=== PATIENT | female | born 1930 | race Caucasian/White ===

== ENCOUNTER → 2016-06-07 | Outpatient (CLI) | payer OTHER ==
[~2016-06-07] MED LIST: ASPI-435 PO; ATV5 PO; BUPR100T8 PO; CEPH500C PO; CEPH500C2 PO; CIPR-255 PO; LEVO50TA6 PO; LISI-461 PO; MIRT30TA3 PO; TPRSR25 PO
[2016-06-07 11:01] LABS: BASO % 0.6 %; BASO ABS # 0.05 K/uL (0-0.2); COMPLETE YES; EOS % 3.2 %; HEMATOCRIT 38.5 % (37-47); IG% 0.2 %; LYMPH % 20.3 %; LYMPH ABS # 1.66 K/uL (1.2-3.4); MEAN CELL VOLUME 88.1 fL (80-100); MEAN CORPUSCULAR HEMOGLOBIN 29.7 pg (25-34); MEAN CORPUSCULAR HGB CONC 33.8 g/dl (32-36); MEAN PLATELET VOLUME 11.6 fL (7.4-10.4); MONO % 12.5 %; NEUT % 63.2 %; PLATELET COUNT 181 K/uL (130-400); RED BLOOD COUNT 4.37 M/uL (4.2-5.4); WHITE BLOOD COUNT 8.19 K/uL (4.8-10.8)
[2016-06-07 11:21] LABS: BLOOD UREA NITROGEN 42 mg/dl (7-18); BUN/CREATININE RATIO 32.3 (10-20); CALCIUM 9.2 mg/dl (8.5-10.1); CARBON DIOXIDE 28 mmol/L (21-32); CHLORIDE 106 mmol/L (98-107); GLUCOSE 108 mg/dl (70-99); POTASSIUM 4.7 mmol/L (3.5-5.1); SODIUM 138 mmol/L (136-145)
[2016-06-07 11:37] LABS: CHOLESTEROL 181 mg/dl (0-200); CHOLESTEROL/HDL RATIO 2.6; HDL CHOLESTEROL 69 mg/dl; LDL CHOLESTEROL CALCULATED 92 mg/dl; TRIGLYCERIDES 100 mg/dl (0-150); VERY LOW DENSITY LIPOPROT CALC 20 mg/dl
[2016-06-07 13:19] LABS: ESTIMATED AVERAGE GLUCOSE 123 mg/dl; HA1C FLAG Normal (Normal)
--- NOTE | 2016-06-11 09:23 | CODING QUERY MEDICAL NECESSITY ---
SUPPORTING DIAGNOSIS NEEDED Dr. Ibarra, A supporting diagnosis is required for the test/procedure performed on this patient in order for us to be reimbursed by the patient's insurance. Please provide a supporting diagnosis for the following test/procedure listed below next to the test name along with your signature. *If there is no additional diagnosis for this patient that would support the following test/procedure please document that below next to the test/procedure. Test(s)/Procedure(s) that require a supporting diagnosis: * 18131 GLYCATED HEMOGLOBIN DIAGNOSIS: DATE OF SERVICE: 06/07/16 Provider Signature: Date: Thank you Carlyle Gao [facility] Information Management Once completed, please kindly fax back to [phone] For questions please call [phone]
== END | disposition home or self-care (01) ==
LOC: C.LABBC 09:32
PROVIDERS: ATTEND Internal Medicine
DX: I10 Essential (primary) hypertension (principal); R73.9 Hyperglycemia, unspecified

== ENCOUNTER 2016-06-17 14:16 | Emergency (ER) | payer OTHER ==
[~2016-06-17] VITALS: Ht 162.6 cm; Wt 46.7 kg
[~2016-06-17 14:16] MED LIST changes: -CEPH500C PO; -CEPH500C2 PO; -CIPR-255 PO
[2016-06-17 14:18] VITALS: TEMP 36.6; Ht 162.6 cm; Wt 46.7 kg
--- NOTE | 2016-06-17 14:37 | EMERGENCY ROOM VISIT NOTE ---
ED Visit Note First contact with patient: 14:28 CHIEF COMPLAINT: Left leg laceration HISTORY OF PRESENT ILLNESS: This 85-year-old female patient presents to the emergency department ambulatory after cutting the left anterior lower extremity when she bumped it on a chair at home. The bleeding has stopped. Denies weakness or numbness of the foot or toes. The patient denies any pain. The patient denies any other injuries. The patient's Tetanus shot is not up to date. REVIEW OF SYSTEMS: A 6 system review of systems was completed with positives and pertinent negatives listed in the HPI. ALLERGIES: Doxycycline, tetracycline MEDICATIONS: See nursing notes PMH: Hypertension, hypothyroidism SOCIAL HISTORY: The patient lives locally. She does not smoke PHYSICAL EXAM: Vital Signs: Reviewed Nurse's notes, vital signs stable. GENERAL : This is an 85-year-old female, in no acute distress, well-developed, well- nourished. SKIN: There is a 7 cm long skin tear on the anterior aspect of the left lower extremity. The edges gape apart with traction. There is no foreign material in the wound and it looks clean. There is no significant bleeding. No deep structures such as tendons, bones, or nerves are seen in the base of the wound. Normal strength and movement of the foot and toes. Capillary refill less than 2 seconds. Normal sensation to light and sharp touch. EMERGENCY DEPARTMENT COURSE: I examined the patient. The wound was cleaned and irrigated with normal saline. The wound edges were approximated using forceps. Dermabond was used to secure the wound edges. There was good approximation. The patient tolerated the procedure well. She will be placed on Keflex for 5 days. She should return to the ER if any worsening symptoms. The patient was given Td immunization. The patient was discharged home in good condition. The patient was also seen and examined by Dr. Choudhury who agrees with the assessment and treatment plan. Problem List Medical Problems: (1) Depression Status: Chronic Current/Historical Medications Scheduled Aspirin (Aspirin 81), 81 MG PO HS Bupropion (Wellbutrin Sr), 200 MG PO QAM Cephalexin Monohydrate (Keflex), 500 MG PO TID Levothyroxine Sodium (Levothyroxine Sodium), 1 TAB PO DAILY Lisinopril (Lisinopril), 10 MG PO QAM Metoprolol Succinate (Metoprolol Succinate ER), 25 MG PO BID Mirtazapine (Remeron), 15 MG PO HS Allergies Coded Allergies: Doxycycline (Unverified Allergy, Unknown, RASH, 06/17/16) Tetracycline (Verified Allergy, Unknown, 12/03/15) Vital Signs Date Time Temp Pulse Resp B/P Pulse Ox O2 Delivery O2 Flow Rate FiO2 06/17/16 15:18 72 18 146/67 99 Room Air 06/17/16 14:18 36.6 64 16 153/72 100 Room Air Medications Administered Medications (Trade) Dose Ordered Sig/Gregorio Route Start Time Stop Time Status Last Admin Dose Admin Diphtheria/ Pertussis/Tetanus Vacc (Adacel Inj) 0.5 ml ONCE ONCE IM. 06/17/16 14:45 06/17/16 14:46 DC 06/17/16 15:18 0.5 ML Departure Information Impression Primary Impression: Skin tear Dispostion Home / Self-Care Condition GOOD Prescriptions Cephalexin Monohydrate (Keflex) 500 Mg Cap 500 MG PO TID for 5 Days, #15 CAP Prov: Priscilla Vincent PA-C 06/17/16 Referrals Howard Ibarra M.D. (PCP) Patient Instructions ED Laceration Ext Skin Glue, My [facility] Additional Instructions Keep the area clean and dry Keflex every 8 hours for 5 days to help prevent infection Follow up with your family doctor for recheck in 5-7 days. You may need to see the wound center if the wound is not healing well. Return with worsening symptoms.
[2016-06-17] MEDS ORDERED: DIPHTHERIA/TETANUS/PERTUSSIS 0.5 ML SYR/VIAL IM. ONE (14:45)
[2016-06-17] MEDS ORDERED: CEPH500C PO (14:55)
[2016-06-17 15:18] VITALS: BP 146/67; PULSE 72; O2SAT 99
--- NOTE | 2016-06-18 19:52 | EMERGENCY ROOM VISIT NOTE ---
ED Visit Note First contact with patient: 14:28 I have personally evaluated and examined this patient. I agree with assessment and plan of Lyndsay Vincent PA-C. Left leg avulsion/laceration already repaired with dermabond. Abx given valve history. Tetanus update. Stable and feeling well.
[2016-10-21] MEDS ORDERED: CEPH500C2 PO (11:27)
[2016-12-15] MEDS ORDERED: CIPR-255 PO (07:39)
== END 2016-06-17 15:28 | disposition home or self-care (01) ==
LOC: C.EDD 14:25
DX: S81.802A Unspecified open wound, left lower leg, initial encounter (principal); Z23 Encounter for immunization; I10 Essential (primary) hypertension; E03.9 Hypothyroidism, unspecified; F32.9 Major depressive disorder, single episode, unspecified; Z79.82 Long term (current) use of aspirin; Z79.899 Other long term (current) drug therapy; W22.03XA Walked into furniture, initial encounter

== ENCOUNTER → 2016-09-01 | Outpatient (CLI) | payer OTHER ==
[~2016-09-01] MED LIST changes: -ATV5 PO; +CEPH500C2 PO
[2016-09-01 16:24] LABS: BASO % 0.5 %; BASO ABS # 0.04 K/uL (0-0.2); COMPLETE YES; HEMATOCRIT 37.6 % (37-47); IG% 0.4 %; LYMPH % 12.7 %; LYMPH ABS # 1.03 K/uL (1.2-3.4); MEAN CELL VOLUME 88.9 fL (80-100); MEAN CORPUSCULAR HEMOGLOBIN 28.6 pg (25-34); MEAN CORPUSCULAR HGB CONC 32.2 g/dl (32-36); MONO % 9.5 %; NEUT % 75.9 %; PLATELET COUNT 191 K/uL (130-400); RED BLOOD COUNT 4.23 M/uL (4.2-5.4); WHITE BLOOD COUNT 8.11 K/uL (4.8-10.8)
[2016-09-01 16:55] LABS: BLOOD UREA NITROGEN 40 mg/dl (7-18); BUN/CREATININE RATIO 26.4 (10-20); CARBON DIOXIDE 28 mmol/L (21-32); CHLORIDE 104 mmol/L (98-107); GLUCOSE 137 mg/dl (70-99); POTASSIUM 5.4 mmol/L (3.5-5.1); SODIUM 136 mmol/L (136-145)
[2016-09-02 06:52] LABS: ESTIMATED AVERAGE GLUCOSE 126 mg/dl; HA1C FLAG Normal (Normal)
== END | disposition home or self-care (01) ==
LOC: C.LAB1850 15:26
PROVIDERS: ATTEND Physician Assistant
DX: E03.9 Hypothyroidism, unspecified (principal); R73.9 Hyperglycemia, unspecified

== ENCOUNTER → 2016-09-17 | Outpatient (CLI) | payer OTHER ==
--- NOTE | 2016-09-17 11:30 | DIAGNOSTIC IMAGING REPORT ---
(RENAL)RETROPERITON COMP CLINICAL HISTORY: 86 years-old Female presenting with ELEVATED SERUM CREATININE. TECHNIQUE: Real-time grayscale and limited color Doppler ultrasound imaging of the kidneys and bladder was performed. COMPARISON: Ultrasound from 2011. FINDINGS: Bladder: No significant bladder wall thickening. No ureteral jets visualized. Right kidney: Slightly echogenic parenchyma in comparison to the adjacent liver as on prior exam. Right kidney measures 7.1 cm. No significant cortical thinning. No hydronephrosis. Left kidney: Mildly nodular contour along the lateral interpolar region likely relates to persistent lobulations. Left kidney measures 7.5 cm. Mild apparent expansion of renal sinus fat could suggest cortical thinning. No hydronephrosis. IMPRESSION: 1. No evidence of obstruction. 2. Suggestion of medical renal disease. The kidneys may also be slightly atrophic given their slightly small size. Electronically signed by: Jake Stallworth M.D. 09/17/2016 11:29 AM Dictated Date/Time: 09/17/2016 11:25 AM
--- NOTE | 2016-09-17 11:59 | DIAGNOSTIC IMAGING REPORT ---
DOPPLER ULTRASOUND OF THE RENAL ARTERIES CLINICAL HISTORY: Elevated serum creatinine. COMPARISON STUDY: Renal ultrasound March 19, 2010. TECHNIQUE: Color and duplex Doppler sonography of the abdominal aorta and both renal arteries was performed. The grayscale renal ultrasound will be reported separately. FINDINGS: The peak systolic velocity within the abdominal aorta is 57 cm/s. Both renal veins are patent. The peak systolic velocity within the right renal artery is 104 cm/s. The peak systolic velocity within the left renal artery is 153 cm/s. The proximal left renal artery was slightly obscured. Waveforms within the segmental vessels of both kidneys were normal. IMPRESSION: No convincing evidence for renal artery stenosis. Proximal left renal artery slightly obscured but no downstream evidence for a stenosis. Electronically signed by: Saul Vasquez M.D. 09/17/2016 11:57 AM Dictated Date/Time: 09/17/2016 11:55 AM
== END | disposition home or self-care (01) ==
LOC: C.ULTR 10:07
PROVIDERS: ATTEND Internal Medicine
DX: R79.89 Other specified abnormal findings of blood chemistry (principal)

== ENCOUNTER → 2016-09-30 | Outpatient (CLI) | payer OTHER ==
[2016-09-30 15:05] LABS: BLOOD UREA NITROGEN 41 mg/dl (7-18); CALCIUM 9.2 mg/dl (8.5-10.1); CARBON DIOXIDE 26 mmol/L (21-32); CHLORIDE 103 mmol/L (98-107); GLUCOSE 109 mg/dl (70-99); POTASSIUM 5.1 mmol/L (3.5-5.1); SODIUM 135 mmol/L (136-145)
== END | disposition home or self-care (01) ==
LOC: C.LAB1850 13:55
PROVIDERS: ATTEND Internal Medicine Cardiovascular Disease
DX: R79.89 Other specified abnormal findings of blood chemistry (principal)

== ENCOUNTER → 2016-10-13 | Outpatient (CLI) | payer OTHER | END | disposition home or self-care (01) | LOC: C.LABSPEC 15:38 | PROVIDERS: ATTEND Physician Assistant | DX: L97.909 Non-pressure chronic ulcer of unspecified part of unspecified lower leg with unspecified severity (principal) ==

== ENCOUNTER → 2016-12-18 | Outpatient (CLI) | payer OTHER ==
[~2016-12-18] MED LIST changes: -CEPH500C2 PO; +CIPR-255 PO
[2016-12-18 15:14] LABS: CREATININE 1.21 mg/dl (0.60-1.20)
== END | disposition home or self-care (01) ==
LOC: C.LAB1850 13:50
PROVIDERS: ATTEND Internal Medicine
DX: R79.89 Other specified abnormal findings of blood chemistry (principal); L97.909 Non-pressure chronic ulcer of unspecified part of unspecified lower leg with unspecified severity

== ENCOUNTER → 2017-01-29 | Outpatient (CLI) | payer OTHER ==
[~2017-01-29] MED LIST changes: -CIPR-255 PO
--- NOTE | 2017-01-29 12:40 | DIAGNOSTIC IMAGING REPORT ---
ULTRASOUND RIGHT LOWER EXTREMITY VENOUS CLINICAL HISTORY: Right leg pain. Nonhealing wound. COMPARISON STUDY: No priors. TECHNIQUE: Real-time, grayscale, and color Doppler sonography of the deep veins of the right lower extremity was performed from the inguinal crease to the calf. Compression and augmentation were utilized. FINDINGS: There is no sonographic evidence of deep venous thrombosis identified in the right lower extremity. The common femoral, superficial femoral, and popliteal veins are patent and normally compressible. The greater saphenous vein and the profunda femoris vein at the junction with the common femoral vein are clear. The visualized calf veins are patent. Soft tissue edema is noted in the calf. IMPRESSION: There is no sonographic evidence of deep venous thrombosis identified in the right lower extremity. Electronically signed by: Gavino Brand M.D. 01/29/2017 12:39 PM Dictated Date/Time: 01/29/2017 12:38 PM
== END | disposition home or self-care (01) ==
LOC: C.ULTRBC 11:55
PROVIDERS: ATTEND Emergency Medicine
DX: S81.801A Unspecified open wound, right lower leg, initial encounter (principal); X58.XXXA Exposure to other specified factors, initial encounter

== ENCOUNTER → 2017-07-13 | Outpatient (CLI) | payer OTHER ==
[2017-07-13 16:45] LABS: BASO % 0.5 %; BASO ABS # 0.04 K/uL (0-0.2); EOS % 1.3 %; EOS ABS # 0.11 K/uL (0-0.5); HEMATOCRIT 36.8 % (37-47); IG# 0.03 K/uL (0.00-0.02); LYMPH % 16.5 %; MEAN CELL VOLUME 90.6 fL (80-100); MEAN CORPUSCULAR HEMOGLOBIN 29.6 pg (25-34); MEAN CORPUSCULAR HGB CONC 32.6 g/dl (32-36); MEAN PLATELET VOLUME 11.4 fL (7.4-10.4); MONO % 10.3 %; MONO ABS # 0.88 K/uL (0.11-0.59); NEUT ABS # 6.05 K/uL (1.4-6.5); PLATELET COUNT 182 K/uL (130-400); RED CELL DISTRIBUTION WIDTH CV 13.5 % (11.5-14.5); RED CELL DISTRIBUTION WIDTH SD 44.3 fL (36.4-46.3); WHITE BLOOD COUNT 8.51 K/uL (4.8-10.8)
[2017-07-13 17:15] LABS: BLOOD UREA NITROGEN 29 mg/dl (7-18); CALCIUM 9.3 mg/dl (8.5-10.1); CARBON DIOXIDE 27 mmol/L (21-32); CREATININE 1.23 mg/dl (0.60-1.20); GLUCOSE 105 mg/dl (70-99); POTASSIUM 5.3 mmol/L (3.5-5.1); SODIUM 136 mmol/L (136-145)
[2017-07-14 06:39] LABS: HEMOGLOBIN A1C 5.8 % (4.5-5.6)
== END | disposition home or self-care (01) ==
LOC: C.LAB1850 15:01
PROVIDERS: ATTEND Internal Medicine
DX: I10 Essential (primary) hypertension (principal)

== ENCOUNTER 2018-03-25 11:26 | Inpatient (IN) ==
[2018-03-25] MEDS ORDERED: ALBUT/IPRATROP 3MG/0.5MG NEB 3 ML VIAL ONE (11:53)
[2018-03-25] MEDS ORDERED: methylPREDNISolone 125 MG/2 ML VIAL ONE (11:54)
[2018-03-25] MEDS ORDERED: ALBUT/IPRATROP 3MG/0.5MG NEB 3 ML VIAL NEB STA (12:02)
--- NOTE | 2018-03-25 12:06 | Emergency Department Note ---
Entered by Navid Aiken acting as a scribe for Jonh Ortiz DO History of Present Illness General Chief complaint: Shortness of Breath/Dyspnea Stated complaint: diff breathing/ [facility] Time Seen by Provider: 03/25/18 11:53 Source: patient and other (nurse) History of Present Illness Onset (ago): hour(s) (trouble breathing this morning) Location: chest (lungs) Pain Consistency: + other (persistent) Quality: + other (shortness of breath) Relieved By: + other (supplemental oxygen, Duoneb) Associated symptoms: + other (nausea); no chest pain and no fever/chills The patient is an 87 year old female who presents to the Emergency Room with complaints of persistent shortness of breath. Nursing staff report that the patient was found to have trouble breathing this morning by a [facility] nurse. She states that the patients oxygen saturation was 67% on room air this morning and has now risen to the high 80s on seven liters of supplemental oxygen. She notes that the patient was given one Duoneb treatment and Solu- Medrol prior to arrival. The patient denies a history of COPD, asthma, or other lung problems. She notes minor nausea as well as chronic intermittent leg swelling. She denies chest pain or fevers. Family reports that she has been at [facility] for a couple of months due to several falls for therapy. He notes that she has recently gained a few pounds. The patient denies recent medication changes and states that she is not on blood thinners. She notes that she follows Dr. Alicia Hogan [facility]. The patient states that she did not sleep well last night. She has not noticed any worsening with lying back but notes that she sleeps with several pillows. Home Medications Home Medications Medication Instructions Recorded Confirmed Type Sugar Free Med Pass 2 dose PO DAILY 03/25/18 History acetaminophen [Tylenol] 650 mg PO Q4 PRN 03/25/18 03/25/18 History aspirin 81 mg PO HS 03/25/18 03/25/18 History bupropion HCl [Wellbutrin SR] 200 mg PO QAM 03/25/18 03/25/18 History carboxymethylcellulose sodium 1 drp OPHTHALMIC (EYE) Q12 PRN 03/25/18 03/25/18 History [Refresh Tears] ciprofloxacin HCl [Cipro] 500 mg PO Q12H 03/25/18 03/25/18 History docusate sodium [Colace] 100 mg PO BID 03/25/18 03/25/18 History levothyroxine 50 mcg PO DAILY 03/25/18 03/25/18 History mirtazapine 15 mg PO HS 03/25/18 03/25/18 History sennosides [senna] 8.6 mg PO DAILY PRN 03/25/18 03/25/18 History sulfamethoxazole-trimethoprim 1 tab PO BID 03/25/18 03/25/18 History [Bactrim DS] vitamins A,C,[id number] 2 tab PO QAM 03/25/18 03/25/18 History [PreserVision AREDS] Allergies Allergy/AdvReac Type Severity Reaction Status Date / Time doxycycline Allergy Unknown RASH Verified 03/25/18 12:17 tetracycline Allergy Unknown Unknown Verified 03/25/18 12:17 Past Med/Surg History Medical History 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 S/p pacemaker placement Unilateral edema of lower extremity Peripheral neuropathy Hypothyroid HTN (hypertension) Depression (Chronic) Ulcer, venous stasis Depression (Chronic) Hyperglycemia (Chronic) Hyponatremia (Chronic) Acute delirium (Resolved) Surgical History Status post total hysterectomy and bilateral salpingo-oophorectomy Status post aortic valve replacement History of permanent cardiac pacemaker placement Heart valve replaced History of appendectomy History of tonsillectomy Heart valve replaced (Chronic) Family History Other Diabetes Hypertension Social History marital status: / Current Living Situation: Alone Other Information That Helps Us Care for You: No Feels Safe at Home: Yes Safety Concerns: Feels Safe At This Time Smoking Status: Never smoker Second Hand Exposure: No Hx Alcohol Use: Yes Alcohol type: wine Alcohol Intake Frequency: holidays/ special occasions only Hx Substance Use: No Beliefs That Will Affect Care: None Communication Ability: Effective Review of Systems See HPI for pertinent positives & negatives. and A total of 10 systems reviewed and were otherwise negative Physical Exam Vital Signs Vital Signs - 24 hr 03/26/18 15:34 03/26/18 19:44 03/26/18 20:26 Temperature 36.8 C 36.8 C Temperature Source Oral Oral Pulse Rate [Apical] Pulse Rate [Right Finger] 63 73 Respiratory Rate 19 23 Respiratory Effort / Characteristics Non-Labored Respiratory Depth Normal Respiratory Pattern Regular Blood Pressure [Left Arm] 153/73 H 125/93 Blood Pressure [Right Arm] Blood Pressure Mean [Left Arm] 99 103 Blood Pressure Mean [Right Arm] Blood Pressure Position [Left Arm] Lying Lying Blood Pressure Position [Right Arm] Pulse Oximetry 93 89 L Oxygen Delivery Method Nasal Cannula Nasal Cannula Nasal Cannula Oxygen Flow Rate 5.0 2.0 2 03/26/18 23:26 03/26/18 23:30 03/27/18 04:03 Temperature 37.0 C 36.9 C Temperature Source Oral Oral Pulse Rate [Apical] 60 81 Pulse Rate [Right Finger] Respiratory Rate 20 19 Respiratory Effort / Characteristics Non-Labored Spontaneous Respiratory Depth Normal Respiratory Pattern Regular Blood Pressure [Left Arm] 156/65 H 150/70 H Blood Pressure [Right Arm] Blood Pressure Mean [Left Arm] 95 96 Blood Pressure Mean [Right Arm] Blood Pressure Position [Left Arm] Lying Lying Blood Pressure Position [Right Arm] Pulse Oximetry 91 95 Oxygen Delivery Method Nasal Cannula Nasal Cannula Oxymask Oxygen Flow Rate 4 4 4 03/27/18 06:20 03/27/18 06:56 03/27/18 08:00 Temperature 36.6 C Temperature Source Oral Pulse Rate [Apical] 66 Pulse Rate [Right Finger] Respiratory Rate 21 Respiratory Effort / Characteristics Non-Labored Spontaneous Respiratory Depth Normal Respiratory Pattern Regular Blood Pressure [Left Arm] 166/66 H Blood Pressure [Right Arm] 163/74 H Blood Pressure Mean [Left Arm] 99 Blood Pressure Mean [Right Arm] 103 Blood Pressure Position [Left Arm] Lying Blood Pressure Position [Right Arm] Lying Pulse Oximetry 93 Oxygen Delivery Method Oxymask Nasal Cannula Oxygen Flow Rate 4 4 03/27/18 11:35 Temperature 36.6 C Temperature Source Oral Pulse Rate [Apical] 63 Pulse Rate [Right Finger] Respiratory Rate 20 Respiratory Effort / Characteristics Respiratory Depth Respiratory Pattern Blood Pressure [Left Arm] 155/70 H Blood Pressure [Right Arm] Blood Pressure Mean [Left Arm] 98 Blood Pressure Mean [Right Arm] Blood Pressure Position [Left Arm] Lying Blood Pressure Position [Right Arm] Pulse Oximetry 96 Oxygen Delivery Method Nasal Cannula Oxygen Flow Rate 3.5 GENERAL: Patient is awake alert. She is somewhat anxious appearing and appears to be having difficulty breathing. EYES: The conjunctivae are clear. The pupils are round and reactive. EARS, NOSE, MOUTH AND THROAT: The nose is without any evidence of any deformity. Mucous membranes are moist tongue is midline NECK: The neck is nontender and supple. RESPIRATORY: Shallow respirations with tachypnea was appreciated. There are diminished breath sounds with rales noted throughout. CARDIOVASCULAR: Regular rate and rhythm was noted to auscultation. There was a loud S2 appreciated. GASTROINTESTINAL: The abdomen is soft. Bowel sounds are present in all quadrants. Abdomen is nontender MUSCULOSKELETAL/EXTREMITIES: There is no evidence of gross deformity full range of motion is noted in the hips and shoulders SKIN: There is no obvious evidence of any rash. Pedal edema was noted bilaterally. NEUROLOGIC: Patient is awake alert and oriented x3. Course 1157: Past medical records reviewed. The patient was evaluated in room C12A, and a complete history and physical examination were performed. 1316: I consulted Dr. Bryan [facility] Hospitalist. She will reevaluate the patient for hospitalization. Consultations Consultation #1: I consulted Dr. Bryan [facility] Hospitalist. She will reevaluate the patient for hospitalization. Time: 13:16 Administered Medications Acetaminophen (Tylenol) 650 mg PO Q4 PRN PRN Reason: Pain Stop: 04/24/18 16:08 Last Admin: 03/27/18 00:13 Dose: 650 mg Aspirin (Ecotrin Ectab) 81 mg PO HS [place] Stop: 04/24/18 20:59 Last Admin: 03/26/18 19:37 Dose: 81 mg Admin: 03/25/18 20:50 Dose: 81 mg Bupropion HCl (Wellbutrin-Sr) 200 mg PO QAM [place] Stop: 04/25/18 08:59 Last Admin: 03/27/18 07:50 Dose: 200 mg Admin: 03/26/18 07:48 Dose: 200 mg Docusate Sodium (Colace) 100 mg PO BID [place] Stop: 04/24/18 20:59 Last Admin: 03/27/18 07:50 Dose: 100 mg Admin: 03/26/18 19:37 Dose: 100 mg Admin: 03/26/18 07:48 Dose: 100 mg Admin: 03/25/18 20:51 Dose: 100 mg Enoxaparin Sodium (Lovenox) 30 mg SQ Q24H [place] Stop: 04/24/18 17:59 Last Admin: 03/26/18 17:54 Dose: 30 mg Admin: 03/25/18 17:46 Dose: 30 mg Furosemide 40 mg/ Syringe 5 mls @ 4 mls/min IV [id number] [place] Stop: 04/24/18 16:59 Last Admin: 03/27/18 09:32 Dose: 4 mls/min Admin: 03/26/18 16:41 Dose: 4 mls/min Admin: 03/26/18 07:48 Dose: 4 mls/min Admin: 03/25/18 17:47 Dose: 4 mls/min Piperacillin Sod/Tazobactam (Sod 3.375 gm/ Dextrose) 115 mls @ 28.75 mls/hr IV Q8H [place]; Protocol Stop: 04/01/18 21:59 Last Infusion: 03/27/18 10:38 Dose: 0 mls/hr Admin: 03/27/18 06:07 Dose: 28.8 mls/hr Infusion: 03/27/18 02:30 Dose: 0 mls/hr Admin: 03/26/18 21:38 Dose: 28.8 mls/hr Infusion: 03/26/18 19:24 Dose: 0 mls/hr Admin: 03/26/18 15:10 Dose: 28.8 mls/hr Infusion: 03/26/18 10:36 Dose: 0 mls/hr Admin: 03/26/18 05:56 Dose: 28.8 mls/hr Infusion: 03/26/18 02:15 Dose: 0 mls/hr Admin: 03/25/18 22:11 Dose: 28.8 mls/hr Levothyroxine Sodium (Synthroid) 50 mcg PO DAILYBB [place] Stop: 04/25/18 06:29 Last Admin: 03/27/18 06:22 Dose: 50 mcg Admin: 03/26/18 06:00 Dose: 50 mcg Mirtazapine (Remeron) 15 mg PO HS [facility] Stop: 04/24/18 20:59 Last Admin: 03/26/18 19:37 Dose: 15 mg Admin: 03/25/18 20:50 Dose: 15 mg Multivitamins/Minerals (Multivitamin W/ Minerals Tab) 2 tab PO QAM [place] Stop: 04/25/18 08:59 Last Admin: 03/27/18 07:50 Dose: 2 tab Admin: 03/26/18 07:48 Dose: 2 tab Nitroglycerin (Nitro-Bid 2%) 0.5 inch EXT Q6 [place] Stop: 04/24/18 17:59 Last Admin: 03/27/18 12:31 Dose: 0.5 inch Admin: 03/27/18 06:22 Dose: 0.5 inch Admin: 03/27/18 00:07 Dose: 0.5 inch Admin: 03/26/18 17:57 Dose: 0.5 inch Admin: 03/26/18 12:00 Dose: 0.5 inch Admin: 03/26/18 05:59 Dose: 0.5 inch Admin: 03/25/18 23:56 Dose: 0.5 inch Admin: 03/25/18 18:31 Dose: 0.5 inch Discontinued Medications Albuterol (Duoneb) Confirm Administered Dose 3 ml .ROUTE .STK-MED ONE Stop: 03/25/18 11:54 Last Admin: 03/25/18 12:21 Dose: 3 ml Albuterol (Duoneb) 3 ml NEB NOW STA Stop: 03/25/18 12:03 Last Admin: 03/25/18 12:21 Dose: Not Given Furosemide (Lasix) 20 mg IV NOW STA Stop: 03/25/18 12:26 Last Admin: 03/25/18 12:43 Dose: 20 mg Piperacillin Sod/Tazobactam (Sod 3.375 gm/ Dextrose) 115 mls @ 230 mls/hr IV NOW ONE; Protocol Stop: 03/25/18 17:29 Last Infusion: 03/25/18 18:32 Dose: 0 mls/hr Admin: 03/25/18 17:46 Dose: 230 mls/hr Vancomycin HCl 1,250 mg/ (Sodium Chloride) 275 mls @ 125 mls/hr IV NOW ONE Stop: 03/25/18 19:11 Last Infusion: 03/25/18 20:48 Dose: 0 mls/hr Admin: 03/25/18 18:25 Dose: 125 mls/hr Vancomycin HCl 750 mg/ Sodium (Chloride) 265 mls @ 125 mls/hr IV NOW STA Stop: 03/26/18 09:08 Last Infusion: 03/26/18 10:36 Dose: 0 mls/hr Admin: 03/26/18 07:42 Dose: 125 mls/hr Methylprednisolone (Solumedrol) Confirm Administered Dose 125 mg .ROUTE .STK- MED ONE Stop: 03/25/18 11:55 Last Admin: 03/25/18 12:41 Dose: Not Given Nitroglycerin (Nitro-Bid 2%) 0.5 inch EXT NOW ONE Stop: 03/25/18 12:26 Last Admin: 03/25/18 12:41 Dose: 0.5 inch Medical Decision Making Differential Diagnosis Differential diagnosis: Etiologies such as infections, reactive airway disease, pneumonia, pneumothorax , COPD, CHF, cardiac ischemia, pulmonary embolism, musculoskeletal, gastrointestinal, as well as others were entertained. Medical Records Attestation: I reviewed the patient's medical records. Home Medications Current Medication List: was personally reviewed by me Laboratory Data Attestation: I reviewed the patient's lab results. Result diagrams: 03/26/18 02:04 03/27/18 06:32 Lab Results 03/25/18 03/25/18 03/25/18 Range/Units 11:40 11:40 11:40 WBC 13.14 H (4.8-10.8) K/uL RBC 4.43 (4.2-5.4) M/uL Hgb 12.4 (12.0-16.0) g/dL Hct 37.2 (37-47) % MCV 84.0 (80-100) fL MCH 28.0 (25-34) pg MCHC 33.3 (32-36) g/dL RDW Std Deviation 41.7 (36.4-46.3) fL RDW Coeff of Kem 13.5 (11.5-14.5) % Plt Count 232 (130-400) K/uL MPV 11.0 H (7.4-10.4) fL Immature Gran % (Auto) 0.4 % Neut % (Auto) 89.8 % Lymph % (Auto) 4.0 % [place] % (Auto) 5.4 % Eos % (Auto) 0.2 % Baso % (Auto) 0.2 % Immature Gran # (Auto) 0.05 H (0.00-0.02) K/uL Neut # (Auto) 11.79 H (1.4-6.5) K/uL Lymph # (Auto) 0.53 L (1.2-3.4) K/uL [place] # (Auto) 0.71 H (0.11-0.59) K/uL Eos # (Auto) 0.03 (0-0.5) K/uL Baso # (Auto) 0.03 (0-0.2) K/uL PT 12.9 H (9.0-12.0) Seconds INR 1.3 H (0.9-1.1) APTT 28.9 (21.0-31.0) Seconds PTT Ratio 1.1 Sodium 127 L (136-145) mmol/L Potassium 4.3 (3.5-5.1) mmol/L Chloride 94 L (98-107) mmol/L Carbon Dioxide 18 L (21-32) mmol/L Anion Gap 14.0 H (3-11) BUN 30 H (7-18) mg/dl Creatinine 1.42 H (0.6-1.2) mg/dl Est Cr Clr Drug Dosing 23.0 ml/min Est GFR ( Amer) 38.1 Est GFR (Non-Af Amer) 32.9 BUN/Creatinine Ratio 21.4 H (10-20) Glucose 158 H (70-99) mg/dl Estimat Average Glucose mg/dl Hemoglobin A1c (4.5-5.6) % Osmolality (280-300) mOsm/kg Uric Acid 4.8 (2.6-7.2) mg/dl Calcium 8.7 (8.5-10.1) mg/dl Magnesium 2.1 (1.8-2.4) mg/dl Total Bilirubin 0.5 (0.2-1) mg/dl AST 20 (15-37) U/L ALT 21 (12-78) U/L Alkaline Phosphatase 129 H (45-117) U/L Troponin I 0.132 H* (0-0.045) ng/ml NT-Pro-B Natriuret Pep 9819 H (0-1800) pg/ml Total Protein 7.0 (6.4-8.2) gm/dl Albumin 3.3 L (3.4-5.0) gm/dl Globulin 3.7 (2.5-4.0) gm/dl Albumin/Globulin Ratio 0.9 (0.9-2) Procalcitonin (0-0.5) ng/ml Urine Color Urine Appearance (Clear) Urine pH (4.5-7.5) Ur Specific [place] (1.000-1.030) Urine Protein (Negative) Urine Glucose (UA) (Negative) Urine Ketones (Negative) Urine Blood (Negative) Urine Nitrite (Negative) Urine Bilirubin (Negative) Urine Urobilinogen (Negative) Ur Leukocyte Esterase (Negative) Urine Osmolality (500-800) mOsm/kg Ur Random Sodium mmol/L Nasal Screen MRSA (PCR) (Negative) Random Vancomycin mcg/ml 03/25/18 03/25/18 03/25/18 Range/Units 15:25 16:16 20:12 WBC (4.8-10.8) K/uL RBC (4.2-5.4) M/uL Hgb (12.0-16.0) g/dL Hct (37-47) % MCV (80-100) fL MCH (25-34) pg MCHC (32-36) g/dL RDW Std Deviation (36.4-46.3) fL RDW Coeff of Kem (11.5-14.5) % Plt Count (130-400) K/uL MPV (7.4-10.4) fL Immature Gran % (Auto) % Neut % (Auto) % Lymph % (Auto) % [place] % (Auto) % Eos % (Auto) % Baso % (Auto) % Immature Gran # (Auto) (0.00-0.02) K/uL Neut # (Auto) (1.4-6.5) K/uL Lymph # (Auto) (1.2-3.4) K/uL [place] # (Auto) (0.11-0.59) K/uL Eos # (Auto) (0-0.5) K/uL Baso # (Auto) (0-0.2) K/uL PT (9.0-12.0) Seconds INR (0.9-1.1) APTT (21.0-31.0) Seconds PTT Ratio Sodium (136-145) mmol/L Potassium (3.5-5.1) mmol/L Chloride (98-107) mmol/L Carbon Dioxide (21-32) mmol/L Anion Gap (3-11) BUN (7-18) mg/dl Creatinine (0.6-1.2) mg/dl Est Cr Clr Drug Dosing ml/min Est GFR ( Amer) Est GFR (Non-Af Amer) BUN/Creatinine Ratio (10-20) Glucose (70-99) mg/dl Estimat Average Glucose mg/dl Hemoglobin A1c (4.5-5.6) % Osmolality 277 L (280-300) mOsm/kg Uric Acid (2.6-7.2) mg/dl Calcium (8.5-10.1) mg/dl Magnesium (1.8-2.4) mg/dl Total Bilirubin (0.2-1) mg/dl AST (15-37) U/L ALT (12-78) U/L Alkaline Phosphatase (45-117) U/L Troponin I 0.131 H* (0-0.045) ng/ml NT-Pro-B Natriuret Pep (0-1800) pg/ml Total Protein (6.4-8.2) gm/dl Albumin (3.4-5.0) gm/dl Globulin (2.5-4.0) gm/dl Albumin/Globulin Ratio (0.9-2) Procalcitonin (0-0.5) ng/ml Urine Color Yellow Urine Appearance Clear (Clear) Urine pH 5.5 (4.5-7.5) Ur Specific [place] 1.012 (1.000-1.030) Urine Protein Negative (Negative) Urine Glucose (UA) Negative (Negative) Urine Ketones Negative (Negative) Urine Blood Negative (Negative) Urine Nitrite Negative (Negative) Urine Bilirubin Negative (Negative) Urine Urobilinogen Negative (Negative) Ur Leukocyte Esterase Negative (Negative) Urine Osmolality (500-800) mOsm/kg Ur Random Sodium mmol/L Nasal Screen MRSA (PCR) (Negative) Random Vancomycin mcg/ml 03/26/18 03/26/18 03/26/18 Range/Units 02:04 02:04 02:04 WBC 10.92 H (4.8-10.8) K/uL RBC 4.22 (4.2-5.4) M/uL Hgb 11.7 L (12.0-16.0) g/dL Hct 34.9 L (37-47) % MCV 82.7 (80-100) fL MCH 27.7 (25-34) pg MCHC 33.5 (32-36) g/dL RDW Std Deviation 40.7 (36.4-46.3) fL RDW Coeff of Kem 13.5 (11.5-14.5) % Plt Count 191 (130-400) K/uL MPV 10.1 (7.4-10.4) fL Immature Gran % (Auto) 0.3 % Neut % (Auto) 76.3 % Lymph % (Auto) 6.8 % [place] % (Auto) 12.8 % Eos % (Auto) 3.6 % Baso % (Auto) 0.2 % Immature Gran # (Auto) 0.03 H (0.00-0.02) K/uL Neut # (Auto) 8.34 H (1.4-6.5) K/uL Lymph # (Auto) 0.74 L (1.2-3.4) K/uL [place] # (Auto) 1.40 H (0.11-0.59) K/uL Eos # (Auto) 0.39 (0-0.5) K/uL Baso # (Auto) 0.02 (0-0.2) K/uL PT (9.0-12.0) Seconds INR (0.9-1.1) APTT (21.0-31.0) Seconds PTT Ratio Sodium 130 L (136-145) mmol/L Potassium 3.5 D (3.5-5.1) mmol/L Chloride 96 L (98-107) mmol/L Carbon Dioxide 29 (21-32) mmol/L Anion Gap 5.0 (3-11) BUN 31 H (7-18) mg/dl Creatinine 1.39 H (0.6-1.2) mg/dl Est Cr Clr Drug Dosing 23.5 ml/min Est GFR ( Amer) 39.1 Est GFR (Non-Af Amer) 33.8 BUN/Creatinine Ratio 22.5 H (10-20) Glucose 105 H (70-99) mg/dl Estimat Average Glucose 117 mg/dl Hemoglobin A1c 5.7 H (4.5-5.6) % Osmolality (280-300) mOsm/kg Uric Acid (2.6-7.2) mg/dl Calcium 8.1 L (8.5-10.1) mg/dl Magnesium 1.8 (1.8-2.4) mg/dl Total Bilirubin (0.2-1) mg/dl AST (15-37) U/L ALT (12-78) U/L Alkaline Phosphatase (45-117) U/L Troponin I 0.136 H* (0-0.045) ng/ml NT-Pro-B Natriuret Pep (0-1800) pg/ml Total Protein (6.4-8.2) gm/dl Albumin (3.4-5.0) gm/dl Globulin (2.5-4.0) gm/dl Albumin/Globulin Ratio (0.9-2) Procalcitonin (0-0.5) ng/ml Urine Color Urine Appearance (Clear) Urine pH (4.5-7.5) Ur Specific [place] (1.000-1.030) Urine Protein (Negative) Urine Glucose (UA) (Negative) Urine Ketones (Negative) Urine Blood (Negative) Urine Nitrite (Negative) Urine Bilirubin (Negative) Urine Urobilinogen (Negative) Ur Leukocyte Esterase (Negative) Urine Osmolality (500-800) mOsm/kg Ur Random Sodium mmol/L Nasal Screen MRSA (PCR) (Negative) Random Vancomycin mcg/ml 03/26/18 03/26/18 03/26/18 Range/Units 02:04 02:04 04:05 WBC (4.8-10.8) K/uL RBC (4.2-5.4) M/uL Hgb (12.0-16.0) g/dL Hct (37-47) % MCV (80-100) fL MCH (25-34) pg MCHC (32-36) g/dL RDW Std Deviation (36.4-46.3) fL RDW Coeff of Kem (11.5-14.5) % Plt Count (130-400) K/uL MPV (7.4-10.4) fL Immature Gran % (Auto) % Neut % (Auto) % Lymph % (Auto) % [place] % (Auto) % Eos % (Auto) % Baso % (Auto) % Immature Gran # (Auto) (0.00-0.02) K/uL Neut # (Auto) (1.4-6.5) K/uL Lymph # (Auto) (1.2-3.4) K/uL [place] # (Auto) (0.11-0.59) K/uL Eos # (Auto) (0-0.5) K/uL Baso # (Auto) (0-0.2) K/uL PT (9.0-12.0) Seconds INR (0.9-1.1) APTT (21.0-31.0) Seconds PTT Ratio Sodium (136-145) mmol/L Potassium (3.5-5.1) mmol/L Chloride (98-107) mmol/L Carbon Dioxide (21-32) mmol/L Anion Gap (3-11) BUN (7-18) mg/dl Creatinine (0.6-1.2) mg/dl Est Cr Clr Drug Dosing ml/min Est GFR ( Amer) Est GFR (Non-Af Amer) BUN/Creatinine Ratio (10-20) Glucose (70-99) mg/dl Estimat Average Glucose mg/dl Hemoglobin A1c (4.5-5.6) % Osmolality (280-300) mOsm/kg Uric Acid (2.6-7.2) mg/dl Calcium (8.5-10.1) mg/dl Magnesium (1.8-2.4) mg/dl Total Bilirubin (0.2-1) mg/dl AST (15-37) U/L ALT (12-78) U/L Alkaline Phosphatase (45-117) U/L Troponin I (0-0.045) ng/ml NT-Pro-B Natriuret Pep (0-1800) pg/ml Total Protein (6.4-8.2) gm/dl Albumin (3.4-5.0) gm/dl Globulin (2.5-4.0) gm/dl Albumin/Globulin Ratio (0.9-2) Procalcitonin 0.42 (0-0.5) ng/ml Urine Color Urine Appearance (Clear) Urine pH (4.5-7.5) Ur Specific [place] (1.000-1.030) Urine Protein (Negative) Urine Glucose (UA) (Negative) Urine Ketones (Negative) Urine Blood (Negative) Urine Nitrite (Negative) Urine Bilirubin (Negative) Urine Urobilinogen (Negative) Ur Leukocyte Esterase (Negative) Urine Osmolality 369 L (500-800) mOsm/kg Ur Random Sodium mmol/L Nasal Screen MRSA (PCR) (Negative) Random Vancomycin 13.5 mcg/ml 03/26/18 03/26/18 03/27/18 Range/Units 04:05 04:15 06:32 WBC (4.8-10.8) K/uL RBC (4.2-5.4) M/uL Hgb (12.0-16.0) g/dL Hct (37-47) % MCV (80-100) fL MCH (25-34) pg MCHC (32-36) g/dL RDW Std Deviation (36.4-46.3) fL RDW Coeff of Kem (11.5-14.5) % Plt Count (130-400) K/uL MPV (7.4-10.4) fL Immature Gran % (Auto) % Neut % (Auto) % Lymph % (Auto) % [place] % (Auto) % Eos % (Auto) % Baso % (Auto) % Immature Gran # (Auto) (0.00-0.02) K/uL Neut # (Auto) (1.4-6.5) K/uL Lymph # (Auto) (1.2-3.4) K/uL [place] # (Auto) (0.11-0.59) K/uL Eos # (Auto) (0-0.5) K/uL Baso # (Auto) (0-0.2) K/uL PT (9.0-12.0) Seconds INR (0.9-1.1) APTT (21.0-31.0) Seconds PTT Ratio Sodium (136-145) mmol/L Potassium (3.5-5.1) mmol/L Chloride (98-107) mmol/L Carbon Dioxide (21-32) mmol/L Anion Gap (3-11) BUN (7-18) mg/dl Creatinine 1.34 H (0.6-1.2) mg/dl Est Cr Clr Drug Dosing 20.5 ml/min Est GFR ( Amer) 40.9 Est GFR (Non-Af Amer) 35.3 BUN/Creatinine Ratio (10-20) Glucose (70-99) mg/dl Estimat Average Glucose mg/dl Hemoglobin A1c (4.5-5.6) % Osmolality (280-300) mOsm/kg Uric Acid (2.6-7.2) mg/dl Calcium (8.5-10.1) mg/dl Magnesium (1.8-2.4) mg/dl Total Bilirubin (0.2-1) mg/dl AST (15-37) U/L ALT (12-78) U/L Alkaline Phosphatase (45-117) U/L Troponin I (0-0.045) ng/ml NT-Pro-B Natriuret Pep (0-1800) pg/ml Total Protein (6.4-8.2) gm/dl Albumin (3.4-5.0) gm/dl Globulin (2.5-4.0) gm/dl Albumin/Globulin Ratio (0.9-2) Procalcitonin (0-0.5) ng/ml Urine Color Urine Appearance (Clear) Urine pH (4.5-7.5) Ur Specific [place] (1.000-1.030) Urine Protein (Negative) Urine Glucose (UA) (Negative) Urine Ketones (Negative) Urine Blood (Negative) Urine Nitrite (Negative) Urine Bilirubin (Negative) Urine Urobilinogen (Negative) Ur Leukocyte Esterase (Negative) Urine Osmolality (500-800) mOsm/kg Ur Random Sodium 96 mmol/L Nasal Screen MRSA (PCR) Negative (Negative) Random Vancomycin mcg/ml Imaging Data Radiologist's Impression: Radiology results as stated below per my review and the radiologist's interpretation: XR chest 1V portable CLINICAL HISTORY: Dyspnea COMPARISON STUDY: 01/26/2018 FINDINGS: The heart appears mildly enlarged. There are postsurgical changes of midline sternotomy and valvular replacement. 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 A lead fracture is again visualized. There is radiographic evidence of congestive failure/fluid overload. There are bilateral pleural effusions with associated by basilar parenchymal opacities compresses atelectatic versus infectious/inflammatory.[ There is a stable chronic right apical opacity. IMPRESSION: 1. Interval development of congestive failure and bilateral pleural effusions 2. Bilateral lower lobe opacities, atelectasis versus pneumonia. 3. Clinical and radiographic follow-up is recommended. Electronically signed by: Hussein Torres M.D. 03/25/2018 12:19 PM ECG Data Attestation: I personally reviewed and interpreted this ECG as follows: Indication: SOB/dyspnea Rate (beats per minute): 75 Rhythm: other (ventricular paced rhythm) Findings: + other ([place] beat noted) Comparison ECG Date: from (01/28/18) Change: no significant change Blood Pressure Blood Pressure Findings: Elevated blood pressure Blood Pressure Disposition: further management by hospitalist MDM Narrative The patient is an 87-year-old female who presented to the emergency department for an evaluation of difficulty breathing. The patient lives in a senior care at this time. She is status post valve replacement. She had a history and physical exam which appear to be consistent with pulmonary edema. She was treated with nitrates as well as IV Lasix in the emergency department. I discussed the patient's laboratory and radiographic studies with her and her family member. I also discussed her case with the on-call [facility] hospitalist. The patient did have very significant hypoxia on arrival but this seems to have improved at this time. The patient was reevaluated multiple times. Impression & Plan Pulmonary edema, Hypoxia, Hyponatremia Discharge Plan Visit Data *Final* Discharge Date/Time: 03/25/18 15:09 Chief Complaint: Shortness of Breath/Dyspnea Stated Complaint: diff breathing/ juniper ED Provider: Jonh Ortiz Discharge Problem: Pulmonary edema, Hypoxia, Hyponatremia Patient Disposition: Admitted As Inpatient Discharge Instructions Interventions: ED Discharge Assessment Last Done: 03/25/18 15:09 The scribe's documentation has been prepared under my direction and personally reviewed by me in its entirety. I confirm that the note above accurately reflects all work, treatment, procedures, and medical decision making performed by me.
--- NOTE | 2018-03-25 12:20 | XRay Report ---
XR chest 1V portable CLINICAL HISTORY: Dyspnea COMPARISON STUDY: 01/26/2018 FINDINGS: The heart appears mildly enlarged. There are postsurgical changes of midline sternotomy and valvular replacement. There is a left subclavian dual-chamber central venous pacemaker. A lead fract ure is again visualized. There is radiographic evidence of congestive failure/fluid overload. There a re bilateral pleural effusions with associated by basilar parenchymal opacities compresses atelectati c versus infectious/inflammatory.[ There is a stable chronic right apical opacity. IMPRESSION: 1. Interval development of congestive failure and bilateral pleural effusions 2. Bilateral lower lobe opacities, atelectasis versus pneumonia. 3. Clinical and radiographic follow-up is recommended. Electronically signed by: Hussein Torres M.D. 03/25/2018 12:19 PM
[2018-03-25] MEDS ORDERED: NITROGLYCERIN 2% OINTMENT 30GM TUBE EXT ONE (12:25)
[2018-03-25] MEDS ORDERED: FUROSEMIDE 40 MG/4 ML VIAL IV STA (12:25)
[2018-03-25 12:44] LABS: Basophils # (auto) 0.03 K/uL (0-0.2); Basophils % (auto) 0.2 %; Eosinophils # (auto) 0.03 K/uL (0-0.5); Eosinophils % (auto) 0.2 %; Hematocrit (blood only) 37.2 % (37-47); Hemoglobin 12.4 g/dL (12.0-16.0); Immature Granulocytes # (auto) 0.05 K/uL (0.00-0.02); Immature Granulocytes % (auto) 0.4 %; Lymphocytes # (auto) 0.53 K/uL (1.2-3.4); Mean Corpuscular Hgb Conc 33.3 g/dL (32-36); Monocytes # (auto) 0.71 K/uL (0.11-0.59); Monocytes % (auto) 5.4 %; Neutrophils # (auto) 11.79 K/uL (1.4-6.5); Neutrophils % (auto) 89.8 %; Platelet Count 232 K/uL (130-400); RDW Coefficient of Variation 13.5 % (11.5-14.5); RDW Standard Deviation 41.7 fL (36.4-46.3); Red Blood Count 4.43 M/uL (4.2-5.4); White Blood Count 13.14 K/uL (4.8-10.8)
[2018-03-25 12:54] LABS: Albumin Level 3.3 gm/dl (3.4-5.0); BUN Creatinine Ratio 21.4 (10-20); Calcium 8.7 mg/dl (8.5-10.1); Est GFR (African American) 38.1; Est GFR (Non-African American) 32.9; INR 1.3 (0.9-1.1); Magnesium 2.1 mg/dl (1.8-2.4); Partial Thromboplastin Ratio 1.1; Partial Thromboplastin Time 28.9 Seconds (21.0-31.0); Potassium 4.3 mmol/L (3.5-5.1); Prothrombin Time 12.9 Seconds (9.0-12.0); Uric Acid 4.8 mg/dl (2.6-7.2)
[2018-03-25 13:23] LABS: Albumin Globulin Ratio 0.9 (0.9-2); Bilirubin,Total 0.5 mg/dl (0.2-1); Globulin 3.7 gm/dl (2.5-4.0); Troponin I 0.132 ng/ml (0-0.045)
--- NOTE | 2018-03-25 14:18 | History & Physical Report ---
Date of Service March 25, 2018 Assessment & Plan (1) Acute on chronic diastolic (congestive) heart failure: This patient is an 87-year-old female with a history of complete heart block status post pacemaker, AVR, syncope, hypothyroidism, chronic right leg ulcer currently infected and on antibiotics, HTN, chronic diastolic CHF, who presents from the assisted living portion of [facility] with worsening shortness of breath, cough, and profound hypoxia. The patient reports she started coughing about a week ago and was nonproductive. She does think she had a fever last night although does not know the temperature. Today, her son noted that the visiting nurse noted cyanosis of the lips and her pulse ox was in the 60s. EMS was called and she was given Solu-Medrol and DuoNeb's on the way to the ER. In the ER, she was hypoxic and placed on oxygen supplemental via facemask, her chest x-ray showed pulmonary edema and bilateral effusions with possible atelectasis versus pneumonia at the bases. She had an elevated white blood cell count of 13. Her proBNP was elevated at 9819, and her troponin was elevated at 0.132. The patient denies chest pain and her ECG showed an AV paced rhythm with aberrancy. In the ER, she was given Lasix 20 mg IV x1 and Nitropaste. She had not urinated yet by the time I saw her. Notably, her weight is positive about 5 kg from when she was here in December, however her son notes that she has been eating much better since moving to the [facility] living facility. She will be admitted for acute on chronic diastolic CHF and possible bilateral pneumonia/HCAP. -Admit to telemetry -Continue Lasix 40 mg IV twice daily -Daily weights, strict I's and O's, low-sodium diet, and fluid restrict to 1800 mL's per day -Cardiology consultation-further recommendations appreciated -No need for echocardiogram as she just had 2 in the last 6 months-her valve is functioning well and she has known grade 2 diastolic dysfunction with mild MR -Follow BMP and replace electrolytes as needed, watch creatinine -Continue supplemental O2 as below -Continue Nitropaste 0.5 inches transdermal every 6 hours for now (2) Acute respiratory failure with hypoxia: Secondary to acute CHF, possible pneumonia as well? -Continue supplemental O2 -Diuresis as above -Treat with antibiotics for pneumonia -Follow pulse ox (3) Elevated troponin: Troponin elevated at 0.132 on admission, patient is chest pain-free no ischemic changes on ECG -Likely myocardial demand ischemia in the setting of CHF -Trend serial troponin -Follow on telemetry -Cardio consultation place as above -Follow ECG in the morning (4) Hyponatremia: Baseline sodium around 130, slightly lower today 127. Likely secondary to volume overload -Check urine osmolality, urine sodium, and serum osmolality -Follow BMP daily (5) Hyperglycemia: Blood sugar 158 on arrival in the ER, last hemoglobin A1c was 06/2017 was 5.7% Of note, she did get 1 dose of IV Solu-Medrol in route to the hospital -Check hemoglobin A1c in the morning (6) Depression: Stable -Continue bupropion (7) Status post aortic valve replacement: Valve was functioning well and the last echo in 12/2017 It is bioprosthetic (8) History of permanent cardiac pacemaker placement: Placed for complete heart block -Was interrogated and adjusted when she was here for syncope in 12/2017 (9) Hypothyroid: Continue levothyroxine (10) HTN (hypertension): Blood pressures elevated here likely secondary to volume overload -IV Lasix, Nitropaste as above -She was taken off of her spironolactone and lisinopril during the last admission 2 months ago -May need to go back on an antihypertensive upon discharge (11) Ulcer, venous stasis: Chronic on the right leg. Recently found to be infected and growing MSSA and Pseudomonas, was on Cipro and Bactrim for the last few days prior to admission. -Hold Cipro and Bactrim while on IV antibiotic for suspected pneumonia as above -Continues on Zosyn and vancomycin which will cover based on sensitivities of her wound culture from above (12) CKD (chronic kidney disease) stage 3, GFR 30-59 ml/min: Currently with a mild renal insufficiency with creatinine 1.42 up from baseline of 1.2 or 1.1, likely secondary to acute CHF -Avoid nephrotoxins -Follow BMP -Renally dose medications (13) Pneumonia: With bilateral basilar opacities with pleural effusions and pulmonary edema on chest x-ray. But patient with cough times 1 week and possible fever the night before admission as per patient report. She does live in assisted living. -We will treat with Zosyn and vancomycin for now -Check pro calcitonin in the morning -Check MRSA swab -Discontinue antibiotics if felt necessary after treatment for CHF if no other signs of pneumonia. (14) DVT prophylaxis: Lovenox SQ Disposition-admit to telemetry, expect at least a 2 midnight stay for treatment of acute CHF and suspected pneumonia History of Present Illness Chief Complaint: Shortness of breath Primary Care Provider: Galdino Ibarra MD This patient is an 87-year-old female with a history of complete heart block status post pacemaker, AVR, syncope, hypothyroidism, chronic right leg ulcer currently infected and on antibiotics, HTN, chronic diastolic CHF, who presents from the [facility] with worsening shortness of breath, cough, and profound hypoxia. The patient reports she started coughing about a week ago and was nonproductive. She does think she had a fever last night although does not know the temperature. Today, her son noted that the visiting nurse noted cyanosis of the lips and her pulse ox was in the 60s. EMS was called and she was given Solu-Medrol and DuoNeb's on the way to the ER. In the ER, she was hypoxic and placed on oxygen supplemental via facemask, her chest x-ray showed pulmonary edema and bilateral effusions with possible atelectasis versus pneumonia at the bases. She had an elevated white blood cell count of 13. Her proBNP was elevated at 9819, and her troponin was elevated at 0.132. The patient denies chest pain and her ECG showed an AV paced rhythm with aberrancy. In the ER, she was given Lasix 20 mg IV x1 and Nitropaste. She had not urinated yet by the time I saw her. Notably, her weight is positive about 5 kg from when she was here in December, however her son notes that she has been eating much better since moving to the [facility] facility. She will be admitted for acute on chronic diastolic CHF and possible bilateral pneumonia/HCAP. Allergies Allergy/AdvReac Type Severity Reaction Status Date / Time doxycycline Allergy Unknown RASH Verified 03/25/18 12:17 tetracycline Allergy Unknown Unknown Verified 03/25/18 12:17 Home Medications Home Medications Medication Instructions Recorded Confirmed Type Sugar Free Med Pass 2 dose PO DAILY 03/25/18 History acetaminophen [Tylenol] 650 mg PO Q4 PRN 03/25/18 03/25/18 History aspirin 81 mg PO HS 03/25/18 03/25/18 History bupropion HCl [Wellbutrin SR] 200 mg PO QAM 03/25/18 03/25/18 History carboxymethylcellulose sodium 1 drp OPHTHALMIC (EYE) Q12 PRN 03/25/18 03/25/18 History [Refresh Tears] ciprofloxacin HCl [Cipro] 500 mg PO Q12H 03/25/18 03/25/18 History docusate sodium [Colace] 100 mg PO BID 03/25/18 03/25/18 History levothyroxine 50 mcg PO DAILY 03/25/18 03/25/18 History mirtazapine 15 mg PO HS 03/25/18 03/25/18 History sennosides [senna] 8.6 mg PO DAILY PRN 03/25/18 03/25/18 History sulfamethoxazole-trimethoprim 1 tab PO BID 03/25/18 03/25/18 History [Bactrim DS] vitamins A,C,Y-ffon-fywywo 2 tab PO QAM 03/25/18 03/25/18 History [PreserVision AREDS] Past Med/Surg History Medical History 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 S/p pacemaker placement Unilateral edema of lower extremity Peripheral neuropathy Hypothyroid HTN (hypertension) Depression (Chronic) Ulcer, venous stasis Depression (Chronic) Hyperglycemia (Chronic) Hyponatremia (Chronic) Acute delirium (Resolved) Surgical History Status post total hysterectomy and bilateral salpingo-oophorectomy Status post aortic valve replacement History of permanent cardiac pacemaker placement Heart valve replaced History of appendectomy History of tonsillectomy Heart valve replaced (Chronic) Family History Other Diabetes Hypertension Social History marital status: / Current Living Situation: Personal Care Facility Feels Safe at Home: Yes Smoking Status: Never smoker Second Hand Exposure: No Hx Alcohol Use: Yes Alcohol type: wine Alcohol Intake Frequency: holidays/ special occasions only Hx Substance Use: No Beliefs That Will Affect Care: None Preferred Language: Japanese Visual Impairment: No Limitations Hearing Ability: Hard of Hearing Review of Systems All systems reviewed & are unremarkable except as noted in HPI & below Patient denies abdominal pain or diarrhea, no constipation. Is having a mild headache since prior to admission. Physical Exam 2 Vital Signs (Past 24 Hours): Last Vital Signs Temp 36.9 C 03/25/18 12:42 Pulse 65 03/25/18 14:00 Resp 33 H 03/25/18 14:00 BP 162/74 H 03/25/18 14:00 Pulse Ox 91 03/25/18 14:00 Constitutional: WD/WN, vitals as above (Appears frail, thin, mild respiratory distress) Eyes: PERRL, conjunctivae normal, anicteric sclerae ENMT: external ear and nose normal, oropharynx normal Neck: trachea midline, no thyromegaly Respiratory: + respiratory distress (Mild, with Oxymask in place) Auscultation: + diminished lung sounds (In the lower lung may[place]) and + crackles (At the bases bilaterally) Cardiovascular: Rate/Rhythm: regular rate and regular rhythm Heart Sounds: + abnormal S2 (Loud S2) and no murmur Vessels: + JVD Extremities: + edema (Trace to 1+ pitting edema right greater than left; venous stasis changes bilaterally) Gastrointestinal (Abdomen): normal bowel sounds, soft, nontender, no hepatosplenomegaly Musculoskeletal: Extremities: no cyanosis and no clubbing Skin: + ulcer (Right lateral leg with 2 x 1 cm ulcer with dressing in place with surrounding erythema, minimal drainage) Neurologic: moves all extremities and awake; no focal motor deficits Psychiatric: A+Ox3, euthymic affect Results & Data Laboratory Results 03/25/18 03/25/18 03/25/18 Range/Units 11:40 11:40 11:40 WBC 13.14 H (4.8-10.8) K/uL RBC 4.43 (4.2-5.4) M/uL Hgb 12.4 (12.0-16.0) g/dL Hct 37.2 (37-47) % MCV 84.0 (80-100) fL MCH 28.0 (25-34) pg MCHC 33.3 (32-36) g/dL RDW Std Deviation 41.7 (36.4-46.3) fL RDW Coeff of Kem 13.5 (11.5-14.5) % Plt Count 232 (130-400) K/uL MPV 11.0 H (7.4-10.4) fL Immature Gran % (Auto) 0.4 % Neut % (Auto) 89.8 % Lymph % (Auto) 4.0 % Placer % (Auto) 5.4 % Eos % (Auto) 0.2 % Baso % (Auto) 0.2 % Immature Gran # (Auto) 0.05 H (0.00-0.02) K/uL Neut # (Auto) 11.79 H (1.4-6.5) K/uL Lymph # (Auto) 0.53 L (1.2-3.4) K/uL Placer # (Auto) 0.71 H (0.11-0.59) K/uL Eos # (Auto) 0.03 (0-0.5) K/uL Baso # (Auto) 0.03 (0-0.2) K/uL PT 12.9 H (9.0-12.0) Seconds INR 1.3 H (0.9-1.1) APTT 28.9 (21.0-31.0) Seconds PTT Ratio 1.1 Sodium 127 L (136-145) mmol/L Potassium 4.3 (3.5-5.1) mmol/L Chloride 94 L (98-107) mmol/L Carbon Dioxide 18 L (21-32) mmol/L Anion Gap 14.0 H (3-11) BUN 30 H (7-18) mg/dl Creatinine 1.42 H (0.6-1.2) mg/dl Est Cr Clr Drug Dosing 23.0 ml/min Est GFR ( Amer) 38.1 Est GFR (Non-Af Amer) 32.9 BUN/Creatinine Ratio 21.4 H (10-20) Glucose 158 H (70-99) mg/dl Uric Acid 4.8 (2.6-7.2) mg/dl Calcium 8.7 (8.5-10.1) mg/dl Magnesium 2.1 (1.8-2.4) mg/dl Total Bilirubin 0.5 (0.2-1) mg/dl AST 20 (15-37) U/L ALT 21 (12-78) U/L Alkaline Phosphatase 129 H (45-117) U/L Troponin I 0.132 H* (0-0.045) ng/ml NT-Pro-B Natriuret Pep 9819 H (0-1800) pg/ml Total Protein 7.0 (6.4-8.2) gm/dl Albumin 3.3 L (3.4-5.0) gm/dl Globulin 3.7 (2.5-4.0) gm/dl Albumin/Globulin Ratio 0.9 (0.9-2) Diagnostic Findings Chest x-ray image personally reviewed by me and agree with the following report: XR chest 1V portable CLINICAL HISTORY: Dyspnea COMPARISON STUDY: 01/26/2018 FINDINGS: The heart appears mildly enlarged. There are postsurgical changes of midline sternotomy and valvular replacement. 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 A lead fracture is again visualized. There is radiographic evidence of congestive failure/fluid overload. There are bilateral pleural effusions with associated by basilar parenchymal opacities compresses atelectatic versus infectious/inflammatory.[ There is a stable chronic right apical opacity. IMPRESSION: 1. Interval development of congestive failure and bilateral pleural effusions 2. Bilateral lower lobe opacities, atelectasis versus pneumonia. 3. Clinical and radiographic follow-up is recommended. ECG Additional Comments: AV paced rhythm, aberrancy, no definite ischemic changes Code Status & VTE Plan Code Status DNR, however would be okay with intubation for respiratory failure alone VTE Prophylaxis Plan VTE Prophylaxis will be ordered: Yes _ (1) Hypothyroid Hypothyroidism type: acquired Qualified Code(s): E03.9 - Hypothyroidism, unspecified
[2018-03-25 15:53] LABS: Appearance Urine Clear (Clear); Bilirubin Urine Negative (Negative); Blood Urine Negative (Negative); Color Urine Yellow; Glucose Urine UA Negative (Negative); Ketones Urine Negative (Negative); Leukocyte Esterase Urine Negative (Negative); Nitrite Urine Negative (Negative); Protein Urine Negative (Negative); Specific Gravity Urine 1.012 (1.000-1.030); Urobilinogen Urine Negative (Negative); pH Urine 5.5 (4.5-7.5)
[2018-03-25] MEDS ORDERED: SENNA 8.6 MG TAB PO PRN (16:09)
[2018-03-25] MEDS ORDERED: ARTIFICIAL TEARS OP PRN (16:09)
[2018-03-25] MEDS ORDERED: ONDANSETRON INJ 2 MG/ML 2 ML VIAL IV PRN (16:09)
[2018-03-25] MEDS ORDERED: VANCOMYCIN CONSULT ACTIVE PRN (16:09)
[2018-03-25] MEDS ORDERED: PIPERACILL/TAZOBAC CONSULT ACTIVE PRN (16:09)
[2018-03-25] MEDS ORDERED: VANCOMYCIN HCL 1,250 MG in SODIUM CHLORIDE 0.9% 250 ML IV ONE (17:00)
[2018-03-25] MEDS ORDERED: PIPERACILLIN/TAZOBACTAM 3.375 GM in DEXTROSE 5% 100 ML IV ONE (17:00)
[2018-03-25] MEDS: ENOXAPARIN INJ 30 MG/0.3 ML SYR SQ SCH (17:46)
[2018-03-25] MEDS: FUROSEMIDE 40 MG in SYRINGE 1 ML IV SCH (17:47)
[2018-03-25] MEDS: NITROGLYCERIN 2% OINTMENT 30GM TUBE EXT SCH ×2 (18:31→23:56)
[2018-03-25] MEDS: ASPIRIN 81 MG ECTAB PO SCH (20:50)
[2018-03-25] MEDS: MIRTAZAPINE TAB 15 MG TAB PO SCH (20:50)
[2018-03-25] MEDS: DOCUSATE SODIUM 100 MG CAP PO SCH (20:51)
[2018-03-25] MEDS ORDERED: VANCOMYCIN HCL 1,000 MG in SODIUM CHLORIDE 0.9% 250 ML IV SCH (22:00)
[2018-03-25] MEDS: PIPERACILLIN/TAZOBACTAM 3.375 GM in DEXTROSE 5% 100 ML IV SCH (22:11)
[2018-03-26 02:14] LABS: Basophils # (auto) 0.02 K/uL (0-0.2); Basophils % (auto) 0.2 %; Eosinophils # (auto) 0.39 K/uL (0-0.5); Eosinophils % (auto) 3.6 %; Hematocrit (blood only) 34.9 % (37-47); Hemoglobin 11.7 g/dL (12.0-16.0); Immature Granulocytes # (auto) 0.03 K/uL (0.00-0.02); Immature Granulocytes % (auto) 0.3 %; Lymphocytes # (auto) 0.74 K/uL (1.2-3.4); Lymphocytes % (auto) 6.8 %; Mean Corpuscular Hgb Conc 33.5 g/dL (32-36); Mean Corpuscular Volume 82.7 fL (80-100); Mean Platelet Volume 10.1 fL (7.4-10.4); Monocytes % (auto) 12.8 %; Neutrophils # (auto) 8.34 K/uL (1.4-6.5); Neutrophils % (auto) 76.3 %; Platelet Count 191 K/uL (130-400); RDW Coefficient of Variation 13.5 % (11.5-14.5); RDW Standard Deviation 40.7 fL (36.4-46.3); Red Blood Count 4.22 M/uL (4.2-5.4); White Blood Count 10.92 K/uL (4.8-10.8)
[2018-03-26 02:50] LABS: BUN Creatinine Ratio 22.5 (10-20); Calcium 8.1 mg/dl (8.5-10.1); Creatinine Clr Calc Pharmacy 23.5 ml/min; Est GFR (African American) 39.1; Est GFR (Non-African American) 33.8; Magnesium 1.8 mg/dl (1.8-2.4); Potassium 3.5 mmol/L (3.5-5.1)
[2018-03-26 02:54] LABS: Troponin I 0.136 ng/ml (0-0.045)
[2018-03-26 05:47] LABS: Estimated Average Glucose 117 mg/dl; Hemoglobin A1C 5.7 % (4.5-5.6)
[2018-03-26] MEDS: PIPERACILLIN/TAZOBACTAM 3.375 GM in DEXTROSE 5% 100 ML IV SCH ×3 (05:56→21:38)
[2018-03-26] MEDS: NITROGLYCERIN 2% OINTMENT 30GM TUBE EXT SCH ×3 (05:59→17:57)
[2018-03-26] MEDS: LEVOTHYROXINE SODIUM 50 MCG TABLET PO SCH (06:00)
[2018-03-26] MEDS ORDERED: VANCOMYCIN HCL 750 MG in SODIUM CHLORIDE 0.9% 250 ML IV STA (07:01)
[2018-03-26] MEDS: CEROVITE ADV FORMULA TAB PO SCH (07:48)
[2018-03-26] MEDS: DOCUSATE SODIUM 100 MG CAP PO SCH ×2 (07:48→19:37)
[2018-03-26] MEDS: FUROSEMIDE 40 MG in SYRINGE 1 ML IV SCH ×2 (07:48→16:41)
[2018-03-26] MEDS: BuPROPion SR 100 MG TABCR PO SCH (07:48)
--- NOTE | 2018-03-26 08:17 | Hospitalist Progress Note ---
Date of Service March 26, 2018 Assessment & Plan (1) Acute on chronic diastolic (congestive) heart failure: This patient is an 87-year-old female with a history of complete heart block status post pacemaker, AVR, syncope, hypothyroidism, chronic right leg ulcer currently infected and on antibiotics, HTN, chronic diastolic CHF, who presents from the assisted living portion of [facility] with worsening shortness of breath, cough, and profound hypoxia. She was hypoxia and ems transported to the hospital, she was given Solu-Medrol and DuoNeb's chest x-ray showed pulmonary edema and bilateral effusions with possible atelectasis versus pneumonia at the bases. She had an elevated white blood cell count of 13. Her proBNP was elevated at 9819, and her troponin was elevated at 0.132 was given Lasix 20 mg IV x1 and Nitropaste. weight is positive about 5 kg from when she was here in December, She will be admitted for acute on chronic diastolic CHF and possible bilateral pneumonia/HCAP. Lasix 40 mg IV twice daily. Cardiology consultation (2) Acute respiratory failure with hypoxia: Secondary to acute CHF, possible pneumonia vancomycin and zosyn (3) Elevated troponin: Troponin elevated at 0.132 on admission, -Likely myocardial demand ischemia in the setting of CHF (4) Hyponatremia: Baseline sodium around 130, slightly lower today 127. Likely secondary to volume overload (5) Hyperglycemia: Blood sugar 158 on arrival in the ER, last hemoglobin A1c was 06/2017 was 5.7% Of note, she did get 1 dose of IV Solu-Medrol in route to the hospital (6) Depression: Stable on bupropion (7) Status post aortic valve replacement: Valve was functioning well and the last echo in 12/2017 It is bioprosthetic (8) History of permanent cardiac pacemaker placement: Placed for complete heart block -Was interrogated and adjusted when she was here for syncope in 12/2017 (9) Hypothyroid: Continue levothyroxine (10) HTN (hypertension): Blood pressures elevated here likely secondary to volume overload -IV Lasix, Nitropaste as above -She was taken off of her spironolactone and lisinopril during the last admission 2 months ago (11) Ulcer, venous stasis: Chronic on the right leg. Recently found to be infected and growing MSSA and Pseudomonas, was on Cipro and Bactrim for the last few days prior to admission. -Hold Cipro and Bactrim while on IV antibiotic for suspected pneumonia as above -Continues on Zosyn and vancomycin which will cover based on sensitivities of her wound culture from above (12) CKD (chronic kidney disease) stage 3, GFR 30-59 ml/min: Currently with a mild renal insufficiency with creatinine 1.42 up from baseline of 1.2 or 1.1, likely secondary to acute CHF (13) Pneumonia: With bilateral basilar opacities with pleural effusions and pulmonary edema on chest x-ray. But patient with cough times 1 week and possible fever the night before admission as per patient report. She does live in assisted living. -We will treat with Zosyn and vancomycin for now -Check pro calcitonin in the morning -Check MRSA swab -Discontinue antibiotics if felt necessary after treatment for CHF if no other signs of pneumonia. (14) DVT prophylaxis: Lovenox SQ Disposition-admit to telemetry, expect at least a 2 midnight stay for treatment of acute CHF and suspected pneumonia Subjective Patient is pleasant mildly confused hard of hearing feels better has less shortness of breath has minor discomfort to her leg where there is wound she is having a nonproductive cough Review of Systems ROS: well nourished well developed. No double vision blurry vision No problems with speech or swallowing No palpitations, chest pain or pressure No baseline shortness of breath No abdominal pain nausea vomiting diarrhea changes in appetite or weight No burning urine urine frequency or changes in color Bilateral lower leg pain with chronic right lower leg nonhealing lesion which was concern for infection on presentation No other unusual bruising or bleeding No focused back pain or numbness or loss of strength No new changes in memory or confusion Physical Exam 2 Vital Signs (Past 24 Hours): Last Vital Signs Temp 36.7 C 03/26/18 06:58 Pulse 69 03/26/18 06:58 Resp 18 03/26/18 06:58 BP 139/76 03/26/18 06:58 Pulse Ox 97 03/26/18 06:58 The patient appeared thin and frail Vital signs as documented. Head exam is unremarkable. normocephalic, atraumatic Neck is with 2-3 cm jugular venous distension, but no thyromegaly, or lymphademopathy Lungs are decreased breath sounds at the bases Cardiac exam reveals Rhythm is regular. Atrial systolic murmur at the right upper sternal border is heard pacemaker site is nontender Abdominal exam reveals normal bowel sounds, no masses, no organomegaly Extremities are mildly edematous and both pedal pulses are present there is a left foam dressing on her right lower extremity the wound is mildly erythematous she is chronic venous stasis changes bilaterally Neurologic exam is A&Ox3, but is forgetful and does not have all her fax in place no focal deficits, strength is equal bilateral globally diminished Psychologically seems neither anxious or depressed Skin is with chronic venous stasis changes to her lower extremities _ (1) Hypothyroid Hypothyroidism type: acquired Qualified Code(s): E03.9 - Hypothyroidism, unspecified
--- NOTE | 2018-03-26 09:17 | Cardiology Consultation ---
Date of Consultation March 26, 2018 Assessment & Plan (1) Acute on chronic diastolic (congestive) heart failure: Her CHF exacerbation was likely due to the fact that her diuretic therapy was discontinued in December, and she has apparently been eating better since moving to [facility]. She continues to appear hypervolemic on examination, and would continue her current IV diuretic therapy. Monitor PRP as well as I's&O 's closely. Low sodium diet, <2,000 mg daily recommended. (2) Elevated troponin: Her troponin has been mildly elevated up to 0.136. She denies angina, and her presentation does not appear consistent with an ACS. The elevated troponin is likely demand ischemia in the setting of acute CHF and pneumonia. No additional intervention recommended in this regard. (3) Status post aortic valve replacement: Her echo in December 2017 demonstrated mildly elevated transvalvular velocity and gradient. No need to repeat an echo at this time. (4) History of permanent cardiac pacemaker placement: Her device was interrogated in December 2017 and was functioning well. This can be followed in the outpatient setting. Patient was discussed with Dr. Wetzel. Will continue to follow the patient during her admission. History of Present Illness Reason for Consultation: Acute CHF, positive troponin Requesting Physician: Dr. Bryan Attending Physician: Dr. Wetzel History of Present Illness Mrs. Pappas is an 87 year old female with a medical history significant for aortic stenosis s/p AVR (bioprosthetic, 2008), diastolic CHF, history of complete heart block s/p dual chamber pacemaker, hypertension, hypothyroidism, and chronic right leg ulcer. She has a history of severe aortic stenosis and underwent aortic valve replacement with 21mm pericardial bovine bioprosthetic valve [place] [address] [facility]. A cardiac cath prior demonstrated normal coronary arteries. Following surgery she developed complete heart block and required implantation of a dual chamber pacemaker which is now in VVI mode due to atrial lead malfunction. Her most recent echo in December 2017 demonstrated small LV size with hyperdynamic function, bioprosthetic aortic valve with mildly elevated transvalvular velocity and gradient, and mild mitral regurgitation. She was admitted to [facility] on 01/13/18 after suffering a possible syncopal episode at home. Her pacemaker was interrogated without evidence of arrhythmia. It was felt her symptoms were likely due to orthostasis and her metoprolol was discontinued. She was then readmitted on 01/26/18 after an additional fall. She was found to have an elevated creatinine felt to be secondary to dehydration. She had no evidence of arrhythmia on telemetry. Her spirolactone and lisinopril were discontinued. She was discharged to [facility] for rehab. She presented to the ED from [facility] yesterday in the setting of worsening shortness of breath, cough, and hypoxia. The patient is a poor historian, but she believes the cough started about 2 weeks ago and was nonproductive. Per records, her son noted cyanosis of her lips yesterday, and her pulse ox was in the 60s. EMS was called and she was given Solu-Medrol and DuoNebs en route to the ED. She was hypoxic in the ED and was placed on supplemental oxygen. Chest x -ray showed evidence of CHF, bilateral pleural effusions, and bilateral lower lobe opacities. Her WBC was elevated at 13. Pro-BNP was 9819. Her troponin has been mildly elevated up to 0.136. She has been treated with IV Lasix with net loss of about 1.3 L and also initiated on IV antibiotic therapy. She is currently being seen in her room in . She denies any shortness of breath currently. She denies chest pain. She denies lightheadedness and has not had a fall or syncopal event since her admission in late December. She reports chronic lower extremity edema. She denies abnormal bleeding such as melena, hematochezia, or hematuria. She denies cerebrovascular symptoms. When comparing her hospital weight today to her weight in the outpatient clinic in January, she is up about 4 lbs. Per records, her son noted yesterday that she has been eating much more since moving to the assisted living facility. Allergies Allergy/AdvReac Type Severity Reaction Status Date / Time doxycycline Allergy Unknown RASH Verified 03/25/18 12:17 tetracycline Allergy Unknown Unknown Verified 03/25/18 12:17 Home Medications Home Medications Medication Instructions Recorded Confirmed Type Sugar Free Med Pass 2 dose PO DAILY 03/25/18 History acetaminophen [Tylenol] 650 mg PO Q4 PRN 03/25/18 03/25/18 History aspirin 81 mg PO HS 03/25/18 03/25/18 History bupropion HCl [Wellbutrin SR] 200 mg PO QAM 03/25/18 03/25/18 History carboxymethylcellulose sodium 1 drp OPHTHALMIC (EYE) Q12 PRN 03/25/18 03/25/18 History [Refresh Tears] ciprofloxacin HCl [Cipro] 500 mg PO Q12H 03/25/18 03/25/18 History docusate sodium [Colace] 100 mg PO BID 03/25/18 03/25/18 History levothyroxine 50 mcg PO DAILY 03/25/18 03/25/18 History mirtazapine 15 mg PO HS 03/25/18 03/25/18 History sennosides [senna] 8.6 mg PO DAILY PRN 03/25/18 03/25/18 History sulfamethoxazole-trimethoprim 1 tab PO BID 03/25/18 03/25/18 History [Bactrim DS] vitamins A,C,G-suzz-atbsiz 2 tab PO QAM 03/25/18 03/25/18 History [PreserVision AREDS] Patient History Medical History 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 S/p pacemaker placement Unilateral edema of lower extremity Peripheral neuropathy Hypothyroid HTN (hypertension) Depression (Chronic) Ulcer, venous stasis Depression (Chronic) Hyperglycemia (Chronic) Hyponatremia (Chronic) Acute delirium (Resolved) Surgical History Status post total hysterectomy and bilateral salpingo-oophorectomy Status post aortic valve replacement History of permanent cardiac pacemaker placement Heart valve replaced History of appendectomy History of tonsillectomy Heart valve replaced (Chronic) Family History Other Diabetes Hypertension Social History marital status: / Current Living Situation: Alone Other Information That Helps Us Care for You: No Feels Safe at Home: Yes Safety Concerns: Feels Safe At This Time Smoking Status: Never smoker Second Hand Exposure: No Hx Alcohol Use: Yes Alcohol type: wine Alcohol Intake Frequency: holidays/ special occasions only Hx Substance Use: No Beliefs That Will Affect Care: None Preferred Language: Slovenian Communication Ability: Effective Physical Security Engineer Required: No Physical Exam 2 Vital Signs (Past 24 Hours): Last Vital Signs Temp 36.7 C 03/26/18 06:58 Pulse 69 03/26/18 06:58 Resp 18 03/26/18 06:58 BP 139/76 03/26/18 06:58 Pulse Ox 97 03/26/18 06:58 Constitutional: Alert, oriented, in no acute distress, oxygen mask in place HEENT: Head is atraumatic and normocephalic. EOMs intact. Sclera anicteric. Face is symmetric. No perioral cyanosis. Mucous membranes moist. Neck: Supple, +JVD Pulmonary: Normal respiratory effort, decreased breath sounds in the bases with crackles Cardiac: Regular rate and rhythm, crisp aortic closure sound, no gallops, no rubs, 2/6 systolic murmur Extremities: Trace lower extremity edema bilaterally. No clubbing or cyanosis. Pulses 2+ and symmetric Abdomen: Normal bowel sounds, soft, non-tender, no abdominal mass palpated Skin: Chronic venous stasis skin changes of lower extremities. No rash. Neurological: Oriented to person, place, and time Results & Data Laboratory Results Laboratory Results WBC 10.92 K/uL (4.8-10.8) H 03/26/18 02:04 RBC 4.22 M/uL (4.2-5.4) 03/26/18 02:04 Hgb 11.7 g/dL (12.0-16.0) L 03/26/18 02:04 Hct 34.9 % (37-47) L 03/26/18 02:04 MCV 82.7 fL (80-100) 03/26/18 02:04 MCH 27.7 pg (25-34) 03/26/18 02:04 MCHC 33.5 g/dL (32-36) 03/26/18 02:04 RDW Std Deviation 40.7 fL (36.4-46.3) 03/26/18 02:04 RDW Coeff of Kem 13.5 % (11.5-14.5) 03/26/18 02:04 Plt Count 191 K/uL (130-400) 03/26/18 02:04 MPV 10.1 fL (7.4-10.4) 03/26/18 02:04 Immature Gran % (Auto) 0.3 % 03/26/18 02:04 Neut % (Auto) 76.3 % 03/26/18 02:04 Lymph % (Auto) 6.8 % 03/26/18 02:04 [place] % (Auto) 12.8 % 03/26/18 02:04 Eos % (Auto) 3.6 % 03/26/18 02:04 Baso % (Auto) 0.2 % 03/26/18 02:04 Immature Gran # (Auto) 0.03 K/uL (0.00-0.02) H 03/26/18 02:04 Neut # (Auto) 8.34 K/uL (1.4-6.5) H 03/26/18 02:04 Lymph # (Auto) 0.74 K/uL (1.2-3.4) L 03/26/18 02:04 [place] # (Auto) 1.40 K/uL (0.11-0.59) H 03/26/18 02:04 Eos # (Auto) 0.39 K/uL (0-0.5) 03/26/18 02:04 Baso # (Auto) 0.02 K/uL (0-0.2) 03/26/18 02:04 PT 12.9 Seconds (9.0-12.0) H 03/25/18 11:40 INR 1.3 (0.9-1.1) H 03/25/18 11:40 APTT 28.9 Seconds (21.0-31.0) 03/25/18 11:40 PTT Ratio 1.1 03/25/18 11:40 Sodium 130 mmol/L (136-145) L 03/26/18 02:04 Potassium 3.5 mmol/L (3.5-5.1) D 03/26/18 02:04 Chloride 96 mmol/L (98-107) L 03/26/18 02:04 Carbon Dioxide 29 mmol/L (21-32) 03/26/18 02:04 Anion Gap 5.0 (3-11) 03/26/18 02:04 BUN 31 mg/dl (7-18) H 03/26/18 02:04 Creatinine 1.39 mg/dl (0.6-1.2) H 03/26/18 02:04 Est Cr Clr Drug Dosing 23.5 ml/min 03/26/18 02:04 Est GFR ( Amer) 39.1 03/26/18 02:04 Est GFR (Non-Af Amer) 33.8 03/26/18 02:04 BUN/Creatinine Ratio 22.5 (10-20) H 03/26/18 02:04 Glucose 105 mg/dl (70-99) H 03/26/18 02:04 Estimat Average Glucose 117 mg/dl 03/26/18 02:04 Hemoglobin A1c 5.7 % (4.5-5.6) H 03/26/18 02:04 Osmolality 277 mOsm/kg (280-300) L 03/25/18 16:16 Uric Acid 4.8 mg/dl (2.6-7.2) 03/25/18 11:40 Calcium 8.1 mg/dl (8.5-10.1) L 03/26/18 02:04 Magnesium 1.8 mg/dl (1.8-2.4) 03/26/18 02:04 Total Bilirubin 0.5 mg/dl (0.2-1) 03/25/18 11:40 AST 20 U/L (15-37) 03/25/18 11:40 ALT 21 U/L (12-78) 03/25/18 11:40 Alkaline Phosphatase 129 U/L (45-117) H 03/25/18 11:40 Troponin I 0.136 ng/ml (0-0.045) H* 03/26/18 02:04 NT-Pro-B Natriuret Pep 9819 pg/ml (0-1800) H 03/25/18 11:40 Total Protein 7.0 gm/dl (6.4-8.2) 03/25/18 11:40 Albumin 3.3 gm/dl (3.4-5.0) L 03/25/18 11:40 Globulin 3.7 gm/dl (2.5-4.0) 03/25/18 11:40 Albumin/Globulin Ratio 0.9 (0.9-2) 03/25/18 11:40 Procalcitonin 0.42 ng/ml (0-0.5) 03/26/18 02:04 Urine Color Yellow 03/25/18 15:25 Urine Appearance Clear (Clear) 03/25/18 15:25 Urine pH 5.5 (4.5-7.5) 03/25/18 15:25 Ur Specific Finley 1.012 (1.000-1.030) 03/25/18 15:25 Urine Protein Negative (Negative) 03/25/18 15:25 Urine Glucose (UA) Negative (Negative) 03/25/18 15:25 Urine Ketones Negative (Negative) 03/25/18 15:25 Urine Blood Negative (Negative) 03/25/18 15:25 Urine Nitrite Negative (Negative) 03/25/18 15:25 Urine Bilirubin Negative (Negative) 03/25/18 15:25 Urine Urobilinogen Negative (Negative) 03/25/18 15:25 Ur Leukocyte Esterase Negative (Negative) 03/25/18 15:25 Urine Osmolality 369 mOsm/kg (500-800) L 03/26/18 04:05 Ur Random Sodium 96 mmol/L 03/26/18 04:05 Nasal Screen MRSA (PCR) Negative (Negative) 03/26/18 04:15 Random Vancomycin 13.5 mcg/ml 03/26/18 02:04 Diagnostic Findings CXR: 1. Interval development of congestive failure and bilateral pleural effusions 2. Bilateral lower lobe opacities, atelectasis versus pneumonia. ECG: Electronic ventricular pacemaker Telemetry: Ventricular paced rhythm
--- NOTE | 2018-03-26 13:18 | Palliative Care Consultation ---
Date of Consultation March 26, 2018 Assessment & Plan (1) Palliative care encounter: -This is an 87-year-old female with a PMH that includes AVR, CHB s/p PM, chronic R leg ulcer, Diastolic CHF, and syncope that lives in the personal care setting at [facility], presented to the ED with increasing SOB, cough and hypoxemia. The patient is being treated for an exacerbation of CHF vs PNA. Patient has been admitted to the hospital twice in the last three months with discharges on both January 15, 2018 and February 09, 2018 for A/C CHF exacerbations. -I visited the patient in Room 211. She was sitting in her bed, awake and stated she 'heard I would be stopping by'. -She expressed that she lives independently at [facility] but does have some help with cleaning, but per pt. she does her own cooking and bathing. -Per our conversation, she said she has utilized home health in the past but is unsure if she 'has them now'. Per CM notes, she currently receives Home Health and lives in personal care. -We talked about her medical diagnosis and wishes, she stated how she knows she needs to 'talk about these things now'. -Per patient she has three adult children, one son who lives locally, a daughter in [place] and another son in [place]...both of which she states are flying to [place] next Thursday, not today. -Based on my assessment of her, she is very able to participate in a GOALS OF CARE discussion, but I would not feel comfortable with her retaining of a plan as there was a component of confusion to details. -She did state over and over that she would like to return home and thinks that 'when its her time, its her time and there is nothing we can do to stop that, no matter where she is'. -She did state that she has been to the rehab wing of [facility] and would be willing to try that again. -I would defer to PT/OT final recommendations, but I would suggest Home Health upon her return either skilled or personal care, with an eventual transition to Hospice, so it may be nice to have an agency that can do both. -A POLST form would be helpful to complete with family; however, no family were present at the time of my visit. No POLST on file from what I could find. -Called sonGavino ([phone]) and it rang and rang. Per nursing and Hospitalist, he was in this morning with the patient. -Patient currently DNR, which she did confirm she would not want a breathing tube in the event of a decline, but would be ok with a BiPap mask. Again, would want to further discuss with pt son. -She did state that she has a POA documented 'somewhere' and says her daughter in [place] is the financial POA but she 'thinks' that Gavino is her medical POA. (2) Acute on chronic diastolic (congestive) heart failure: Managed by Hospitalists Patient with significant AVR, no chest pain this admission but Troponin levels peaked at 0.136. Pt receiving Lasix 40 mg IV BID Daily Wts Decreased Na+ intake and fluid restriction (3) CKD (chronic kidney disease) stage 3, GFR 30-59 ml/min: -Managed by Hospitalists -CRF borderline Stage IV -BUN 31 Creat 1.39 GFR 33 -Avoid nephrotoxic agents -Suspect this is related to CHF (4) Depression: -Patient states she feels content with her life. -She stated "I had it all, really - a good , three kids..." She shrugged her shoulders and said "Not much more I could want, really" -Patient takes Wellbutrin 200 mg po Q AM. No need for titration at this time. -Patient also takes Remeron 15 mg po QHS. Pt states she is sleeping ok at this time. (5) Venous stasis ulcer: -Managed by Hospitalists -MSSA Pseudomonas in R bundy wound r/t venous ulcer -Per patient this gets dressed at [facility] by nursing. -Currently on Zosyn,Vancomycin -Patient does c/o neuropathic pain in her R leg when I touched her leg. She is not on any neuropathic medications, would suggest a trial of Gabapentin for effectiveness. Suggest Gabapentin 100 mg po TID and titrate based on response. History of Present Illness Reason for Consultation: Goals of Care Requesting Physician: Dr. Adkins Attending Physician: Balwinder Adkins MD History of Present Illness -This is an 87-year-old female with a PMH that includes AVR, CHB s/p PM, chronic R leg ulcer, Diastolic CHF, and syncope that lives in the personal care setting at [facility], presented to the ED with increasing SOB, cough and hypoxemia. The patient is being treated for an exacerbation of CHF vs PNA. Patient has been admitted to the hospital twice in the last three months with discharges both on 01/15/18 and 02/09/18. Palliative Care was consulted to start a GOALS OF CARE discussion. Please see A& P for additional details. Thank you for involving us in the care of this pleasant female. We will follow throughout her hospitalization. Allergies Allergy/AdvReac Type Severity Reaction Status Date / Time doxycycline Allergy Unknown RASH Verified 03/25/18 12:17 tetracycline Allergy Unknown Unknown Verified 03/25/18 12:17 Home Medications Home Medications Medication Instructions Recorded Confirmed Type Sugar Free Med Pass 2 dose PO DAILY 03/25/18 History acetaminophen [Tylenol] 650 mg PO Q4 PRN 03/25/18 03/25/18 History aspirin 81 mg PO HS 03/25/18 03/25/18 History bupropion HCl [Wellbutrin SR] 200 mg PO QAM 03/25/18 03/25/18 History carboxymethylcellulose sodium 1 drp OPHTHALMIC (EYE) Q12 PRN 03/25/18 03/25/18 History [Refresh Tears] ciprofloxacin HCl [Cipro] 500 mg PO Q12H 03/25/18 03/25/18 History docusate sodium [Colace] 100 mg PO BID 03/25/18 03/25/18 History levothyroxine 50 mcg PO DAILY 03/25/18 03/25/18 History mirtazapine 15 mg PO HS 03/25/18 03/25/18 History sennosides [senna] 8.6 mg PO DAILY PRN 03/25/18 03/25/18 History sulfamethoxazole-trimethoprim 1 tab PO BID 03/25/18 03/25/18 History [Bactrim DS] vitamins A,C,N-ssfa-tkfqdt 2 tab PO QAM 03/25/18 03/25/18 History [PreserVision AREDS] Patient History Medical History 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 S/p pacemaker placement Unilateral edema of lower extremity Peripheral neuropathy Hypothyroid HTN (hypertension) Depression (Chronic) Ulcer, venous stasis Depression (Chronic) Hyperglycemia (Chronic) Hyponatremia (Chronic) Acute delirium (Resolved) Surgical History Status post total hysterectomy and bilateral salpingo-oophorectomy Status post aortic valve replacement History of permanent cardiac pacemaker placement Heart valve replaced History of appendectomy History of tonsillectomy Heart valve replaced (Chronic) Family History Other Diabetes Hypertension Social History marital status: / Current Living Situation: Alone Other Information That Helps Us Care for You: No Feels Safe at Home: Yes Safety Concerns: Feels Safe At This Time Smoking Status: Never smoker Second Hand Exposure: No Hx Alcohol Use: Yes Alcohol type: wine Alcohol Intake Frequency: holidays/ special occasions only Hx Substance Use: No Beliefs That Will Affect Care: None Communication Ability: Effective Review of Systems General: Patient denies COATS, dizziness visual changes. Pt reports she is [place], but her son just brought her hearing aids CV: Pt denies CP, palpitations, swelling. Pt reports + RLE pain to touch Resp: Pt states her breathing is much improved. Pt denies current SOB at rest GI: Pt states her appetite is decreased. Pt denies abdominal pain, N/V/D : pt denies any urinary changes Skin: Pt denies new rashes. States her ulcers continue to bother her. Psych: Pt states she feels content and overal is happy, just wants to go home Physical Exam 2 Vital Signs (Past 24 Hours): Last Vital Signs Temp 36.9 C 03/26/18 11:03 Pulse 60 03/26/18 11:03 Resp 23 03/26/18 11:03 BP 164/72 H 03/26/18 11:03 Pulse Ox 91 03/26/18 11:03 Physical Exam: Pt sitting upright in her bed when I entered the room in NAD. Constitutional: + ill appearing, + thin, cooperative and comfortable Eyes: PERRL, conjunctivae normal, anicteric sclerae ENMT: external ear and nose normal, oropharynx normal Neck: trachea midline, no thyromegaly Respiratory: normal respiratory effort (at rest) and able to speak in complete sentences Auscultation: + crackles (expiratory) Pt on 5 LNC Cardiovascular: Heart Sounds: normal S1, normal S2 and + murmur (Grade III/ ) Vessels: + JVD Extremities: + calf tenderness (r/t neuropathic tenderness) and + edema (trace LE ) Gastrointestinal (Abdomen): normal bowel sounds, soft, nontender, no hepatosplenomegaly Skin: normal turgor, + ulcer (venous ulcer on RLE proximal bundy covered with Allyvyn), + skin tightening (RLE, peeling skin) and + crusts (RLE) Psychiatric: Orientation: alert and oriented x 3 (mildly confused to details) Eye Contact: good eye contact Insight: good insight Judgement: good judgement Time Spent Midlevel Total time spent 50 minutes with > 50% of that time spent reviewing the chart, assessing the patient, discussing goals of care and symptoms with the patient at the bedside.
[2018-03-26] MEDS: ENOXAPARIN INJ 30 MG/0.3 ML SYR SQ SCH (17:54)
[2018-03-26] MEDS: ASPIRIN 81 MG ECTAB PO SCH (19:37)
[2018-03-26] MEDS: MIRTAZAPINE TAB 15 MG TAB PO SCH (19:37)
[2018-03-27] MEDS: NITROGLYCERIN 2% OINTMENT 30GM TUBE EXT SCH ×5 (00:07→23:12)
[2018-03-27] MEDS: ACETAMINOPHEN 325 MG TAB PO PRN (00:13)
[2018-03-27] MEDS: PIPERACILLIN/TAZOBACTAM 3.375 GM in DEXTROSE 5% 100 ML IV SCH ×3 (06:07→22:55)
[2018-03-27] MEDS: LEVOTHYROXINE SODIUM 50 MCG TABLET PO SCH (06:22)
[2018-03-27 07:32] LABS: Creatinine Clr Calc Pharmacy 20.5 ml/min; Est GFR (African American) 40.9; Est GFR (Non-African American) 35.3
[2018-03-27] MEDS: BuPROPion SR 100 MG TABCR PO SCH (07:50)
[2018-03-27] MEDS: DOCUSATE SODIUM 100 MG CAP PO SCH ×2 (07:50→22:43)
[2018-03-27] MEDS: CEROVITE ADV FORMULA TAB PO SCH (07:50)
[2018-03-27] MEDS: FUROSEMIDE 40 MG in SYRINGE 1 ML IV SCH ×2 (09:32→17:31)
--- NOTE | 2018-03-27 12:28 | Hospitalist Progress Note ---
Date of Service March 27, 2018 Assessment & Plan (1) Acute on chronic diastolic (congestive) heart failure: This patient is an 87-year-old female with a history of complete heart block status post pacemaker, AVR, syncope, hypothyroidism, chronic right leg ulcer currently infected and on antibiotics, HTN, chronic diastolic CHF, who presents from the assisted living portion of [facility] with worsening shortness of breath, cough, and profound hypoxia. She was hypoxic and ems transported to the hospital, she was given Solu-Medrol and DuoNeb's chest x-ray showed pulmonary edema and bilateral effusions with possible atelectasis versus pneumonia at the bases. weight is positive about 5 kg from when she was here in December, acute on chronic diastolic CHF and possible bilateral pneumonia/HCAP. Lasix 40 mg IV twice daily. Cardiology consultation has been following diuresis continues to be good renal function is been stable (2) Acute respiratory failure with hypoxia: Secondary to acute CHF, possible pneumonia swab she will remain on Zosyn Respiratory distress is improved dramatically (3) Elevated troponin: Troponin elevated at 0.132 on admission, -Likely myocardial demand ischemia in the setting of CHF not an end STEMI (4) Hyponatremia: Baseline sodium around 130, continue to follow sodium (5) Hyperglycemia: Blood sugar 158 on arrival in the ER, last hemoglobin A1c was 06/2017 was 5.7% Of note, she did get 1 dose of IV Solu-Medrol in route to the hospital (6) Depression: Remains stable on bupropion (7) Status post aortic valve replacement: Valve was functioning well and the last echo in 12/2017 It is bioprosthetic (8) History of permanent cardiac pacemaker placement: Placed for complete heart block -Was interrogated and adjusted when she was here for syncope in 12/2017 (9) Hypothyroid: Continue levothyroxine (10) HTN (hypertension): Has improved with diuresis, may benefit from chronic higher to hypertensive therapy once her volume status is euvolemic (11) Ulcer, venous stasis: Chronic on the right leg. Recently found to be infected and growing MSSA and Pseudomonas, was on Cipro and Bactrim for the last few days prior to admission. -Hold Cipro and Bactrim while on IV antibiotic for suspected pneumonia as above -Continues on Zosyn (12) CKD (chronic kidney disease) stage 3, GFR 30-59 ml/min: Currently with a mild renal insufficiency with creatinine 1.42 up from baseline of 1.2 or 1.1, likely secondary to acute CHF (13) Pneumonia: With bilateral basilar opacities with pleural effusions and pulmonary edema on chest x-ray. But patient with cough times 1 week and possible fever the night before admission as per patient report. She does live in assisted living. -We will treat with Zosyn and vancomycin for now -Discontinue antibiotics if felt necessary after treatment for CHF if no other signs of pneumonia. (14) DVT prophylaxis: Lovenox SQ Subjective Patient is improved his less shortness of breath or lower extremity wound is less painful Review of Systems ROS: She remains hard of hearing and mildly weakened No double vision blurry vision No problems with speech or swallowing No palpitations, chest pain or pressure No Wheezing or breathing issues No abdominal pain nausea vomiting diarrhea changes in appetite or weight No burning urine urine frequency or changes in color No focal joint pain still has pain on her lower extremities the area of her wound No skin rashes or oral lesions Wound is less erythematous and improving No focused back pain or numbness or loss of strength No changes in memory or confusion Physical Exam 2 Vital Signs (Past 24 Hours): Last Vital Signs Temp 36.6 C 03/27/18 11:35 Pulse 63 03/27/18 11:35 Resp 20 03/27/18 11:35 BP 155/70 H 03/27/18 11:35 Pulse Ox 96 03/27/18 11:35 The patient appeared thin and frail-appearing Vital signs as documented. Head exam is unremarkable. normocephalic, atraumatic Neck is without jugular venous distension, thyromegaly, or lymphademopathy Lungs are clear there is no basilar rales heard Cardiac exam reveals Rhythm is regular. She will systolic murmur is heard Abdominal exam reveals normal bowel sounds, no masses, no organomegaly Extremities are nonedematous and both pedal pulses are present Neurologic exam is A&Ox3, no focal deficits, strength is equal bilateral Psychologically seems neither anxious or depressed Skin her wound in her lower extremity is less erythematous there is little drainage and then general her skin on the lower extremities looks improved with the diuresis reducing her chronic venous stasis changes _ (1) Hypothyroid Hypothyroidism type: acquired Qualified Code(s): E03.9 - Hypothyroidism, unspecified
[2018-03-27] MEDS: ENOXAPARIN INJ 30 MG/0.3 ML SYR SQ SCH (17:31)
--- NOTE | 2018-03-27 17:57 | Cardiology Progress Note ---
Date of Service March 27, 2018 Assessment & Plan (1) Acute on chronic diastolic (congestive) heart failure: She is affecting a good diuresis with some improvement in her symptoms. We will need to monitor her electrolytes and renal function closely. She has an element of hyponatremia already and we may need to reduce her daily diuretic dose if this persists. (2) Elevated troponin: Her troponin has been mildly elevated up to 0.136. She denies angina, and her presentation does not appear consistent with an ACS. The elevated troponin is likely demand ischemia in the setting of acute CHF and pneumonia. No additional intervention recommended in this regard. (3) Status post aortic valve replacement: Her echo in December 2017 demonstrated mildly elevated transvalvular velocity and gradient. No need to repeat an echo at this time. (4) History of permanent cardiac pacemaker placement: Her device was interrogated in December 2017 and was functioning well. This can be followed in the outpatient setting. Patient was discussed with Dr. Wetzel. Will continue to follow the patient during her admission. (5) HTN (hypertension): She continues to have elevated blood pressures. This may compromise her overall cardiac function and exacerbate any diastolic dysfunction. Perhaps institution of amlodipine would affect some improvement. She is currently applying NTG topically. She will need to transition to a more aggressive oral antihypertention regimen. Present on Admission?: Yes Subjective The patient overall seems to be feeling better. She states that her breathing is improved. She has no symptoms at rest but does have an element of dyspnea with activity. No chest pain. Physical Exam 2 Vital Signs (Past 24 Hours): Last Vital Signs Temp 36.8 C 03/27/18 15:05 Pulse 62 03/27/18 15:05 Resp 24 03/27/18 15:05 BP 160/67 H 03/27/18 15:05 Pulse Ox 93 03/27/18 15:05 Physical Exam: She is alert and oriented x3. Mood affect appear normal. She answered all questions appropriately. HEENT: Sclerae are anicteric. Pupils are equal and reactive to light and accommodation. Extraocular movements were intact. Neuro: Cranial nerves intact Neck: Examination of the submandibular region did not reveal any significant lymphadenopathy. Carotids are palpable bilaterally and free of bruits on auscultation. There was no evidence of jugular venous distention. The thyroid was not enlarged. Lungs: Lungs are clear to auscultation bilaterally. There are no rales wheezes or rhonchi. She has normal respiratory effort without use of accessory muscles. There is normal pulmonary excursion. Cardiac: The rhythm was regular. S1 and S2 were normal. There are no murmurs on examination. The PMI was not markedly displaced on palpation. Abdomen: The abdomen was soft and nontender. Extremities: Patient has bilateral radial pulses that are equal in intensity. There is no evidence cyanosis or clubbing. There was no evidence of significant peripheral edema bilaterally. Skin: There are no rashes noted on examination today. Results & Data Laboratory Results Abnormal Lab Results 03/27/18 06:32 Creatinine 1.34 H Est Cr Clr Drug Dosing 20.5 Est GFR ( Amer) 40.9 Est GFR (Non-Af Amer) 35.3 ECG Additional Comments: NSR
[2018-03-27] MEDS: MIRTAZAPINE TAB 15 MG TAB PO SCH (22:44)
[2018-03-27] MEDS: ASPIRIN 81 MG ECTAB PO SCH (22:44)
[2018-03-28] MEDS: LEVOTHYROXINE SODIUM 50 MCG TABLET PO SCH (06:11)
[2018-03-28] MEDS: NITROGLYCERIN 2% OINTMENT 30GM TUBE EXT SCH (06:11)
[2018-03-28] MEDS: PIPERACILLIN/TAZOBACTAM 3.375 GM in DEXTROSE 5% 100 ML IV SCH ×3 (06:11→22:02)
[2018-03-28 06:40] LABS: BUN Creatinine Ratio 22.1 (10-20); Calcium 8.5 mg/dl (8.5-10.1); Creatinine Clr Calc Pharmacy 23.4 ml/min; Est GFR (African American) 46.7; Est GFR (Non-African American) 40.3; Potassium 2.7 mmol/L (3.5-5.1)
[2018-03-28] MEDS ORDERED: POTASSIUM CHLORIDE 10 MEQ / 100ML WTR IV STA (07:24)
[2018-03-28] MEDS: POTASSIUM CHLORIDE / WTR 10 MEQ/100 ML PLCT IV SCH ×3 (07:48→09:45)
[2018-03-28] MEDS: DOCUSATE SODIUM 100 MG CAP PO SCH ×2 (07:49→20:15)
[2018-03-28] MEDS: POTASSIUM CHLORIDE 20 MEQ TABCR PO SCH ×2 (07:49→20:15)
[2018-03-28] MEDS: CEROVITE ADV FORMULA TAB PO SCH (07:49)
[2018-03-28] MEDS: BuPROPion SR 100 MG TABCR PO SCH (07:49)
[2018-03-28] MEDS: FUROSEMIDE 40 MG in SYRINGE 1 ML IV SCH (08:44)
[2018-03-28] MEDS: AMLODIPINE BESYLATE 5 MG TAB PO SCH (09:17)
--- NOTE | 2018-03-28 09:46 | Cardiology Progress Note ---
Date of Service March 28, 2018 Assessment & Plan (1) Acute on chronic diastolic (congestive) heart failure: She is affecting a good diuresis with some improvement in her symptoms. She was hypokalemic today and likely requires a reduction in the intensity of her diuresis. She has been switched to a single daily dose of Lasix. This will likely be adequate and perhaps he can be discharged on a single oral dose of Lasix daily. (2) Elevated troponin: Her troponin has been mildly elevated up to 0.136. She denies angina, and her presentation does not appear consistent with an ACS. The elevated troponin is likely demand ischemia in the setting of acute CHF and pneumonia. No additional intervention recommended in this regard. (3) Status post aortic valve replacement: Her echo in December 2017 demonstrated mildly elevated transvalvular velocity and gradient. No need to repeat an echo at this time. (4) History of permanent cardiac pacemaker placement: She is known to have an atrial lead malfunction. The device has been programmed VVIR. It is unclear if this played any role in her current decompensation. This is been a chronic problem and was not related to any symptoms previously. She has had a discussion regarding an option for lead revision. This conversation can be continued in the outpatient setting. (5) HTN (hypertension): She continues to have elevated blood pressures. She was started on amlodipine today. Subjective This morning patient claims to be feeling well. She denies any significant breathing difficulty. She was helped to the restroom by the nursing staff and she did feel somewhat nauseated and weak. She has not had any chest pain. She has been unaware of any palpitations. Appetite continues to be good. Physical Exam 2 Vital Signs (Past 24 Hours): Last Vital Signs Temp 36.8 C 03/28/18 07:49 Pulse 71 03/28/18 08:00 Resp 16 03/28/18 07:49 BP 170/76 H 03/28/18 07:49 Pulse Ox 93 03/28/18 07:49 Physical Exam: She is alert and oriented x3. Mood affect appear normal. She answered all questions appropriately. HEENT: Sclerae are anicteric. Pupils are equal and reactive to light and accommodation. Extraocular movements were intact. Neuro: Cranial nerves intact Neck: Examination of the submandibular region did not reveal any significant lymphadenopathy. Carotids are palpable bilaterally and free of bruits on auscultation. There was no evidence of jugular venous distention. The thyroid was not enlarged. Lungs: Lungs are clear to auscultation bilaterally. There are no rales wheezes or rhonchi. She has normal respiratory effort without use of accessory muscles. There is normal pulmonary excursion. Cardiac: The rhythm was regular. S1 and S2 were normal. Crescendo systolic. The PMI was not markedly displaced on palpation. Abdomen: The abdomen was soft and nontender. Extremities: Patient has bilateral radial pulses that are equal in intensity. There is no evidence cyanosis or clubbing. There was no evidence of significant peripheral edema bilaterally. Skin: There are no rashes noted on examination today. Results & Data Laboratory Results Abnormal Lab Results 03/28/18 03/28/18 05:24 05:24 Sodium 130 L Potassium 2.7 L Chloride 91 L Carbon Dioxide 31 Anion Gap 8.0 BUN 26 H Creatinine 1.20 Est Cr Clr Drug Dosing 23.4 Est GFR ( Amer) 46.7 Est GFR (Non-Af Amer) 40.3 BUN/Creatinine Ratio 22.1 H Glucose 97 Calcium 8.5 Magnesium 2.0 ECG Additional Comments: Normal sinus rhythm with complete heart block and ventricular pacing (asynchronous)
--- NOTE | 2018-03-28 13:32 | Hospitalist Progress Note ---
Date of Service March 28, 2018 Assessment & Plan (1) Acute on chronic diastolic (congestive) heart failure: This patient is an 87-year-old female with a history of complete heart block status post pacemaker, AVR, syncope, hypothyroidism, chronic right leg ulcer currently infected and on antibiotics, HTN, chronic diastolic CHF, who presents from the assisted living portion [facility] with worsening shortness of breath, cough, and profound hypoxia. acute on chronic diastolic CHF and possible bilateral pneumonia/HCAP. Lasix 40 mg be transition to p.o. twice daily. Cardiology consultation has been following diuresis and recommends amlodipine be increased to 10 for better blood pressure control they are comfortable with transitioning to oral will have physical therapy evaluate for appropriate disposition (2) Acute respiratory failure with hypoxia: Secondary to acute CHF, negative MRSA pneumonia swab she will remain on Zosyn until transitioned to an oral antibiotic or completing a 5-day course which ever comes first Respiratory distress resolved (3) Elevated troponin: Troponin elevated at 0.132 on admission, -Likely myocardial demand ischemia in the setting of CHF not an end STEMI (4) Hyponatremia: Baseline sodium around 130, continue to follow sodium (5) Hyperglycemia: Blood sugar 158 on arrival in the ER, last hemoglobin A1c was 06/2017 was 5.7% Of note, she did get 1 dose of IV Solu-Medrol in route to the hospital (6) Depression: Remains on bupropion (7) Status post aortic valve replacement: Valve was functioning well and the last echo in 12/2017 It is bioprosthetic (8) History of permanent cardiac pacemaker placement: Placed for complete heart block she does have some aberrant conduction this was confirmed by cardiology no adjustments are required -Was interrogated and adjusted when she was here for syncope in 12/2017 (9) Hypothyroid: Continue levothyroxine (10) HTN (hypertension): Has improved with diuresis (11) Ulcer, venous stasis: Chronic on the right leg. Recently found to be infected and growing MSSA and Pseudomonas, was on Cipro and Bactrim for the last few days prior to admission. Her leg actually looks dramatically improved with regard to achieving better volume status -Continuing to hold Cipro and Bactrim while on IV antibiotic for suspected pneumonia as above -Continues on Zosyn depending on the progress of her legs she may not require any antibiotics additionally when she is discharged however given the Pseudomonas was in the culture returning to quinolone may be prudent (12) CKD (chronic kidney disease) stage 3, GFR 30-59 ml/min: Sent diuresis (13) Pneumonia: With bilateral basilar opacities with pleural effusions and pulmonary edema on chest x-ray. But patient with cough times 1 week and possible fever the night before admission as per patient report. She does live in assisted living. -We will treat with Zosyn - (14) DVT prophylaxis: Lovenox SQ Subjective Patient has no complaints now. Her biggest concern is returning home versus going back to [facility]. She has to call her son Gavino. I did make a phone call to Gavino and he and the family are concerned of her mobility and fall risk and do request to be evaluated to return to [facility] Review of Systems ROS: well nourished well developed. She is weak and tired complaining of fatigue No double vision blurry vision No problems with speech or swallowing No palpitations, chest pain or pressure No Wheezing or breathing issues No abdominal pain nausea vomiting diarrhea changes in appetite or weight No burning urine urine frequency or changes in color No focal joint pain or muscle pain No skin rashes or oral lesions No unusual bruising or bleeding No focused back pain or numbness or loss of strength No new changes in memory or confusion Physical Exam 2 Vital Signs (Past 24 Hours): Last Vital Signs Temp 36.8 C 03/28/18 11:25 Pulse 72 03/28/18 11:25 Resp 22 03/28/18 11:25 BP 129/84 03/28/18 11:25 Pulse Ox 95 03/28/18 11:25 The patient appeared thin but no significant distress Vital signs as documented. Head exam is unremarkable. normocephalic, atraumatic Neck is with only 1 cm jugular venous distension, thyromegaly, or lymphademopathy Lungs are clear to auscultation and percussion. Cardiac exam reveals regular rhythm with a systolic murmur she is paced Abdominal exam reveals normal bowel sounds, no masses, no organomegaly Extremities are only with trace edema bilaterally and both pedal pulses are present but weak Neurologic exam is A&Ox3, no focal deficits, strength is diminished bilaterally Psychologically seems neither anxious or depressed Skin is warm Dry without bruises or lesions _ (1) Hypothyroid Hypothyroidism type: acquired Qualified Code(s): E03.9 - Hypothyroidism, unspecified
[2018-03-28] MEDS: ENOXAPARIN INJ 30 MG/0.3 ML SYR SQ SCH (18:22)
[2018-03-28] MEDS: ASPIRIN 81 MG ECTAB PO SCH (20:15)
[2018-03-28] MEDS: MIRTAZAPINE TAB 15 MG TAB PO SCH (20:15)
[2018-03-29] MEDS: LEVOTHYROXINE SODIUM 50 MCG TABLET PO SCH (05:56)
[2018-03-29] MEDS: PIPERACILLIN/TAZOBACTAM 3.375 GM in DEXTROSE 5% 100 ML IV SCH ×3 (05:56→21:42)
[2018-03-29] MEDS: DOCUSATE SODIUM 100 MG CAP PO SCH ×2 (07:52→20:46)
[2018-03-29] MEDS: BuPROPion SR 100 MG TABCR PO SCH (07:53)
[2018-03-29] MEDS: AMLODIPINE BESYLATE 5 MG TAB PO SCH (07:53)
[2018-03-29] MEDS: POTASSIUM CHLORIDE 20 MEQ TABCR PO SCH (07:53)
[2018-03-29] MEDS: FUROSEMIDE 40 MG TAB PO SCH (07:53)
[2018-03-29] MEDS: CEROVITE ADV FORMULA TAB PO SCH (07:53)
[2018-03-29 08:21] LABS: BUN Creatinine Ratio 21.6 (10-20); Calcium 8.5 mg/dl (8.5-10.1); Creatinine Clr Calc Pharmacy 24.2 ml/min; Est GFR (African American) 47.2; Est GFR (Non-African American) 40.7; Potassium 3.6 mmol/L (3.5-5.1)
--- NOTE | 2018-03-29 16:59 | Cardiology Progress Note ---
Date of Service March 29, 2018 Assessment & Plan (1) Acute on chronic diastolic (congestive) heart failure: She has diuresed quite well, she has lost 6-8 kg (depending on which measurement is correct) and feels much better. Her renal function has improved. She is probably going to require very close follow-up to try to maintain an appropriate fluid balance, she will need to be weighed daily and we will try to have her seen in the office on a regular basis in our heart failure clinic. Hopefully we can keep her fluid under better control in this manner. (2) Elevated troponin: Her troponin was slightly elevated in a pattern consistent with demand ischemia, not an acute coronary event. I would not pursue further. (3) Status post aortic valve replacement: Clinically and based on her last echocardiogram for valve is functioning adequately and probably does not explain her presentation. (4) History of permanent cardiac pacemaker placement: Her pacemaker appears to be working well in VVI mode, it is programmed that way due to atrial lead malfunction. This could have something to do with her presentation but it seems it is more likely her volume status not cardiac inefficiency causing it, although lack of atrial kick can contribute it usually does not to this extent. (5) HTN (hypertension): Her blood pressure is better controlled over the last few days, probably adequate at this point. Subjective Events of this hospitalization were reviewed. Today she feels much stronger, she has no cardiovascular complaints today. Physical Exam 2 Vital Signs (Past 24 Hours): Last Vital Signs Temp 36.6 C 03/29/18 15:37 Pulse 64 03/29/18 15:37 Resp 18 03/29/18 15:37 BP 126/55 L 03/29/18 15:37 Pulse Ox 100 03/29/18 15:37 Physical Exam: Constitutional: Alert, cooperative and in no distress. HEENT: Unremarkable Neck: No jugular venous distention, carotid pulses are normal and equal bilaterally without bruits. Pulmonary: Clear to auscultation bilaterally. Cardiac: Regular rhythm with a grade 2/6 crescendo decrescendo murmur at the base, no gallop or rub. Abdomen: Soft, nontender with normal bowel sounds. Extremities: No edema. Distal pulses intact. Neurologic: No focal findings. Gait is steady. Skin: The device site is well-healed without erythema, swelling or tenderness. No rash, ecchymoses or petechiae. Results & Data Diagnostic Findings Telemetry: Ventricular pacing appropriately
[2018-03-29] MEDS: ENOXAPARIN INJ 30 MG/0.3 ML SYR SQ SCH (18:01)
[2018-03-29] MEDS: ASPIRIN 81 MG ECTAB PO SCH (20:46)
[2018-03-29] MEDS: MIRTAZAPINE TAB 15 MG TAB PO SCH (20:46)
--- NOTE | 2018-03-29 21:46 | Hospitalist Progress Note ---
Date of Service March 29, 2018 Assessment & Plan (1) Acute on chronic diastolic (congestive) heart failure: This patient is an 87-year-old female with a history of complete heart block status post pacemaker, AVR, syncope, hypothyroidism, chronic right leg ulcer currently infected and on antibiotics, HTN, chronic diastolic CHF, who presents from the assisted living portion of [facility] with worsening shortness of breath, cough, and profound hypoxia. acute on chronic diastolic CHF and possible bilateral pneumonia/HCAP. Lasix 40 mg be transition to p.o. twice daily. Cardiology consultation has been following diuresis. Amlodipine still at 5mg. Cardio recommended amlodipine be increased to 10 for better blood pressure control they are comfortable with transitioning to oral will have physical therapy evaluate for appropriate disposition. Will monitor her BP over course of next 24 hours. She continues to diurese well but continues to require oxygen. Once patient returns close to her baseline may consider discharge (2) Acute respiratory failure with hypoxia: Secondary to acute CHF, negative MRSA pneumonia swab she will remain on Zosyn until transitioned to an oral antibiotic or completing a 5-day course which ever comes first Respiratory distress resolved (3) Elevated troponin: Troponin elevated at 0.132 on admission, -Likely myocardial demand ischemia in the setting of CHF not an end STEMI (4) Hyponatremia: Baseline sodium around 130, continue to follow sodium (5) Hyperglycemia: Blood sugar 158 on arrival in the ER, last hemoglobin A1c was 06/2017 was 5.7% Of note, she did get 1 dose of IV Solu-Medrol in route to the hospital (6) Depression: Remains on bupropion (7) Status post aortic valve replacement: Valve was functioning well and the last echo in 12/2017 It is bioprosthetic (8) History of permanent cardiac pacemaker placement: Placed for complete heart block she does have some aberrant conduction this was confirmed by cardiology no adjustments are required -Was interrogated and adjusted when she was here for syncope in 12/2017 (9) Hypothyroid: Continue levothyroxine (10) HTN (hypertension): Has improved with diuresis (11) Ulcer, venous stasis: Chronic on the right leg. Recently found to be infected and growing MSSA and Pseudomonas, was on Cipro and Bactrim for the last few days prior to admission. Her leg actually looks dramatically improved with regard to achieving better volume status -Continuing to hold Cipro and Bactrim while on IV antibiotic for suspected pneumonia as above -Continues on Zosyn depending on the progress of her legs she may not require any antibiotics additionally when she is discharged however given the Pseudomonas was in the culture returning to quinolone may be prudent Plan is to complete 5 days of zosyn. Stop date will be 03/30 (12) CKD (chronic kidney disease) stage 3, GFR 30-59 ml/min: Sent diuresis (13) Pneumonia: With bilateral basilar opacities with pleural effusions and pulmonary edema on chest x-ray. But patient with cough times 1 week and possible fever the night before admission as per patient report. She does live in assisted living. -We will treat with Zosyn -Last day will be 03/30 (14) DVT prophylaxis: Lovenox SQ Spent 35 minutes in management. Subjective Patient continues to require oxygen via nasal cannula. Patient states she still somewhat SOB but her symptoms have been improving. Patient denies any fever chils, nausea vomiting. ROS: well nourished well developed. She is weak and tired complaining of fatigue No double vision blurry vision No problems with speech or swallowing No palpitations, chest pain or pressure No Wheezing or breathing issues No abdominal pain nausea vomiting diarrhea changes in appetite or weight No burning urine urine frequency or changes in color No focal joint pain or muscle pain No skin rashes or oral lesions No unusual bruising or bleeding No focused back pain or numbness or loss of strength No new changes in memory or confusion Physical Exam 2 Vital Signs (Past 24 Hours): Last Vital Signs Temp 36.9 C 03/29/18 19:45 Pulse 60 03/29/18 19:45 Resp 20 03/29/18 19:45 BP 136/52 L 03/29/18 19:45 Pulse Ox 97 03/29/18 19:45 Physical Exam: The patient appeared thin but no significant distress Vital signs as documented. Head exam is unremarkable. normocephalic, atraumatic Neck is with only 1 cm jugular venous distension, thyromegaly, or lymphademopathy Lungs are clear to auscultation and percussion. Cardiac exam reveals regular rhythm with a systolic murmur she is paced Abdominal exam reveals normal bowel sounds, no masses, no organomegaly Extremities are only with trace edema bilaterally and both pedal pulses are present but weak Neurologic exam is A&Ox3, no focal deficits, strength is diminished bilaterally Psychologically seems neither anxious or depressed Skin is warm Dry without bruises or lesions _ (1) Hypothyroid Hypothyroidism type: acquired Qualified Code(s): E03.9 - Hypothyroidism, unspecified
[2018-03-30] MEDS: PIPERACILLIN/TAZOBACTAM 3.375 GM in DEXTROSE 5% 100 ML IV SCH ×3 (06:02→21:48)
[2018-03-30] MEDS: LEVOTHYROXINE SODIUM 50 MCG TABLET PO SCH (06:03)
[2018-03-30 06:18] LABS: BUN Creatinine Ratio 22.5 (10-20); Calcium 8.5 mg/dl (8.5-10.1); Creatinine Clr Calc Pharmacy 26.5 ml/min; Est GFR (African American) 52.5; Est GFR (Non-African American) 45.3; Potassium 3.7 mmol/L (3.5-5.1)
[2018-03-30] MEDS: DOCUSATE SODIUM 100 MG CAP PO SCH ×2 (09:33→21:50)
--- NOTE | 2018-03-30 09:35 | Cardiology Progress Note ---
Date of Service March 30, 2018 Assessment & Plan (1) Acute on chronic diastolic (congestive) heart failure: She has diuresed quite well, she has lost as much as 8 kg (depending on which measurement is correct) and feels much better. Her renal function continues to improve. She is probably going to require very close outpatient follow-up to try to maintain an appropriate fluid balance, she will need to be weighed daily and we will try to have her seen in the office on a regular basis in our heart failure clinic. Hopefully we can keep her fluid under better control in this manner. I suspect she can still lose some fluid, it may be worthwhile continue to diuresis until her creatinine increases. (2) Elevated troponin: Her troponin was slightly elevated in a pattern consistent with demand ischemia, not an acute coronary event. I would not pursue further. (3) Status post aortic valve replacement: Clinically and based on her last echocardiogram for valve is functioning adequately and probably does not explain her presentation. (4) History of permanent cardiac pacemaker placement: Her pacemaker appears to be working well in VVI mode, it is programmed that way due to atrial lead malfunction. This could have something to do with her presentation but it seems it is more likely her volume status not cardiac inefficiency causing it, although lack of atrial kick can contribute it usually does not to this extent. (5) HTN (hypertension): Her blood pressure is reasonably well controlled although has increased slightly over the last few days, probably adequate at this point. Subjective She is just going to the bathroom and feels a little shaky, she is also feeling cold. Apparently she has loose bowel movements. She does not have cardiovascular symptoms including chest discomfort or significant shortness of breath. Physical Exam 2 Vital Signs (Past 24 Hours): Last Vital Signs Temp 36.6 C 03/30/18 07:50 Pulse 62 03/30/18 07:50 Resp 20 03/30/18 07:50 BP 150/67 H 03/30/18 07:50 Pulse Ox 96 03/30/18 07:50 Physical Exam: Constitutional: Alert, cooperative and in no distress. Pulmonary: Diffuse crackles on auscultation bilaterally. Cardiac: Regular rhythm with a grade 2/6 crescendo decrescendo murmur at the base, no gallop or rub. Abdomen: Soft, nontender with normal bowel sounds. Extremities: No edema. Skin: No rash, ecchymoses or petechiae. Results & Data Diagnostic Findings Telemetry: Ventricularly paced at a controlled heart rate
[2018-03-30] MEDS: FUROSEMIDE 40 MG TAB PO SCH (09:36)
[2018-03-30] MEDS: AMLODIPINE BESYLATE 5 MG TAB PO SCH (09:36)
[2018-03-30] MEDS: CEROVITE ADV FORMULA TAB PO SCH (09:36)
[2018-03-30] MEDS: BuPROPion SR 100 MG TABCR PO SCH (09:37)
[2018-03-30] MEDS: ENOXAPARIN INJ 30 MG/0.3 ML SYR SQ SCH (17:24)
[2018-03-30] MEDS: MIRTAZAPINE TAB 15 MG TAB PO SCH (21:49)
[2018-03-30] MEDS: ASPIRIN 81 MG ECTAB PO SCH (21:49)
--- NOTE | 2018-03-30 22:22 | Hospitalist Progress Note ---
Date of Service March 30, 2018 Assessment & Plan (1) Acute on chronic diastolic (congestive) heart failure: This patient is an 87-year-old female with a history of complete heart block status post pacemaker, AVR, syncope, hypothyroidism, chronic right leg ulcer currently infected and on antibiotics, HTN, chronic diastolic CHF, who presents from the assisted living portion of [facility] with worsening shortness of breath, cough, and profound hypoxia. acute on chronic diastolic CHF and possible bilateral pneumonia/HCAP. Lasix 40 mg be transition to p.o. twice daily. Cardiology consultation has been following diuresis. Amlodipine still at 5mg. Cardio recommended amlodipine be increased to 10 for better blood pressure control they are comfortable with transitioning to oral will have physical therapy evaluate for appropriate disposition. Will monitor her BP over course of next 24 hours. She continues to diurese well but continues to require oxygen. Today her oxygen reuqirement has gone down from 4 liters to 3 liters nasal cannula on 03/30. Once patient returns close to her baseline may consider discharge. (2) Acute respiratory failure with hypoxia: Secondary to acute CHF, negative MRSA pneumonia swab she will remain on Zosyn until transitioned to an oral antibiotic or completing a 5-day course which ever comes first Respiratory distress resolved (3) Elevated troponin: Troponin elevated at 0.132 on admission, -Likely myocardial demand ischemia in the setting of CHF not an end STEMI (4) Hyponatremia: Baseline sodium around 130, continue to follow sodium (5) Hyperglycemia: Blood sugar 158 on arrival in the ER, last hemoglobin A1c was 06/2017 was 5.7% Of note, she did get 1 dose of IV Solu-Medrol in route to the hospital (6) Depression: Remains on bupropion (7) Status post aortic valve replacement: Valve was functioning well and the last echo in 12/2017 It is bioprosthetic (8) History of permanent cardiac pacemaker placement: Placed for complete heart block she does have some aberrant conduction this was confirmed by cardiology no adjustments are required -Was interrogated and adjusted when she was here for syncope in 12/2017 (9) Hypothyroid: Continue levothyroxine (10) HTN (hypertension): Has improved with diuresis (11) Ulcer, venous stasis: Chronic on the right leg. Recently found to be infected and growing MSSA and Pseudomonas, was on Cipro and Bactrim for the last few days prior to admission. Her leg actually looks dramatically improved with regard to achieving better volume status -Continuing to hold Cipro and Bactrim while on IV antibiotic for suspected pneumonia as above -Continues on Zosyn depending on the progress of her legs she may not require any antibiotics additionally when she is discharged however given the Pseudomonas was in the culture returning to quinolone may be prudent Plan is to complete 5 days of zosyn. Stop date will be 03/30 (12) CKD (chronic kidney disease) stage 3, GFR 30-59 ml/min: Sent diuresis (13) Pneumonia: With bilateral basilar opacities with pleural effusions and pulmonary edema on chest x-ray. But patient with cough times 1 week and possible fever the night before admission as per patient report. She does live in assisted living. -We will treat with Zosyn -Last day will be 03/30. Will discontinue today. (14) DVT prophylaxis: Lovenox SQ Spent 35 minutes in management. Subjective Patient continues to require oxygen via nasal cannula. Patient states she is feeling better and is less SOB. Patient denies any fever chills, nausea vomiting. ROS: well nourished well developed. She is weak and tired complaining of fatigue No double vision blurry vision No problems with speech or swallowing No palpitations, chest pain or pressure No Wheezing or breathing issues No abdominal pain nausea vomiting diarrhea changes in appetite or weight No burning urine urine frequency or changes in color No focal joint pain or muscle pain No skin rashes or oral lesions No unusual bruising or bleeding No focused back pain or numbness or loss of strength No new changes in memory or confusion Physical Exam 2 Vital Signs (Past 24 Hours): Last Vital Signs Temp 36.7 C 03/30/18 19:00 Pulse 60 03/30/18 19:00 Resp 16 03/30/18 19:00 BP 109/63 03/30/18 19:00 Pulse Ox 92 03/30/18 19:00 Physical Exam: The patient appeared thin but no significant distress. Continues to be on nasal cannula Vital signs as documented. Head exam is unremarkable. normocephalic, atraumatic Neck is with only 1 cm jugular venous distension, thyromegaly, or lymphademopathy Lungs are clear to auscultation and percussion. Cardiac exam reveals regular rhythm with a systolic murmur she is paced Abdominal exam reveals normal bowel sounds, no masses, no organomegaly Extremities are only with trace edema bilaterally and both pedal pulses are present but weak Neurologic exam is A&Ox3, no focal deficits, strength is diminished bilaterally Psychologically seems neither anxious or depressed Skin is warm Dry without bruises or lesions, mild pedal edema _ (1) Hypothyroid Hypothyroidism type: acquired Qualified Code(s): E03.9 - Hypothyroidism, unspecified
[2018-03-31] MEDS: PIPERACILLIN/TAZOBACTAM 3.375 GM in DEXTROSE 5% 100 ML IV SCH (05:26)
[2018-03-31] MEDS: LEVOTHYROXINE SODIUM 50 MCG TABLET PO SCH (05:26)
[2018-03-31 07:41] LABS: BUN Creatinine Ratio 22.8 (10-20); Calcium 8.6 mg/dl (8.5-10.1); Creatinine Clr Calc Pharmacy 26.8 ml/min; Est GFR (African American) 53.7; Est GFR (Non-African American) 46.3; Potassium 3.5 mmol/L (3.5-5.1)
[2018-03-31] MEDS: DOCUSATE SODIUM 100 MG CAP PO SCH ×3 (08:09→21:38)
[2018-03-31] MEDS: CEROVITE ADV FORMULA TAB PO SCH (08:10)
[2018-03-31] MEDS: AMLODIPINE BESYLATE 5 MG TAB PO SCH (08:11)
[2018-03-31] MEDS: BuPROPion SR 100 MG TABCR PO SCH (08:11)
[2018-03-31] MEDS: FUROSEMIDE 40 MG TAB PO SCH (08:45)
[2018-03-31] MEDS: ACETAMINOPHEN 325 MG TAB PO PRN (10:11)
--- NOTE | 2018-03-31 10:14 | Cardiology Progress Note ---
Date of Service March 31, 2018 Assessment & Plan (1) Acute on chronic diastolic (congestive) heart failure: She has diuresed quite well I believe, her weights are somewhat up and down but she has lost as much as 8 kg (depending on which measurement is correct ) and feels much better. Her renal function continues to improve. She is probably going to require very close outpatient follow-up to try to maintain an appropriate fluid balance, she will need to be weighed daily and we will try to have her seen in the office on a regular basis in our heart failure clinic. Hopefully we can keep her fluid under better control in this manner. I suspect she can still lose some fluid, it may be worthwhile continue to diuresis until her creatinine increases. (2) Elevated troponin: Her troponin was slightly elevated in a pattern consistent with demand ischemia, not an acute coronary event. I would not pursue further. (3) Status post aortic valve replacement: Clinically and based on her last echocardiogram for valve is functioning adequately and probably does not explain her presentation. (4) History of permanent cardiac pacemaker placement: Her pacemaker appears to be working well in VVI mode, it is programmed that way due to atrial lead malfunction. This could have something to do with her presentation but it seems it is more likely her volume status not cardiac inefficiency causing it, although lack of atrial kick can contribute it usually does not to this extent. (5) HTN (hypertension): Her blood pressure is reasonably well controlled for the most part although has increased slightly over the last few days, probably adequate at this point. Subjective Today she seems to feel better, she looks quite good and is sitting at her bedside without oxygen, having just come from the bathroom. She has no specific cardiovascular complaints. Physical Exam 2 Vital Signs (Past 24 Hours): Last Vital Signs Temp 36.7 C 03/31/18 07:49 Pulse 60 03/31/18 08:00 Resp 18 03/31/18 07:49 BP 164/70 H 03/31/18 07:49 Pulse Ox 91 03/31/18 07:49 Physical Exam: Constitutional: Alert, cooperative and in no distress. Pulmonary: Diffuse crackles on auscultation bilaterally. Cardiac: Regular rhythm with a grade 2/6 crescendo decrescendo murmur at the base, no gallop or rub. Abdomen: Soft, nontender with normal bowel sounds. Extremities: No edema. Skin: No rash, ecchymoses or petechiae.
[2018-03-31] MEDS: ENOXAPARIN INJ 30 MG/0.3 ML SYR SQ SCH (18:37)
[2018-03-31] MEDS: MIRTAZAPINE TAB 15 MG TAB PO SCH (20:06)
[2018-03-31] MEDS: ASPIRIN 81 MG ECTAB PO SCH (20:06)
[2018-04-01] MEDS: LEVOTHYROXINE SODIUM 50 MCG TABLET PO SCH (06:10)
[2018-04-01 07:42] LABS: Creatinine Clr Calc Pharmacy 30.2 ml/min; Est GFR (African American) 66.2; Est GFR (Non-African American) 57.1
[2018-04-01] MEDS: DOCUSATE SODIUM 100 MG CAP PO SCH ×2 (08:00→20:46)
[2018-04-01] MEDS: CEROVITE ADV FORMULA TAB PO SCH (08:01)
[2018-04-01] MEDS: BuPROPion SR 100 MG TABCR PO SCH (08:01)
[2018-04-01] MEDS: FUROSEMIDE 40 MG TAB PO SCH (08:01)
[2018-04-01] MEDS: AMLODIPINE BESYLATE 5 MG TAB PO SCH (08:01)
--- NOTE | 2018-04-01 09:40 | Hospitalist Progress Note ---
Date of Service March 31, 2018 Assessment & Plan (1) Acute on chronic diastolic (congestive) heart failure: This patient is an 87-year-old female with a history of complete heart block status post pacemaker, AVR, syncope, hypothyroidism, chronic right leg ulcer currently infected and on antibiotics, HTN, chronic diastolic CHF, who presents from the assisted living portion of [facility] with worsening shortness of breath, cough, and profound hypoxia. acute on chronic diastolic CHF and possible bilateral pneumonia/HCAP. Lasix 40 mg be transition to p.o. twice daily. Cardiology consultation has been following diuresis. Amlodipine still at 5mg. Cardio recommended amlodipine be increased to 10 for better blood pressure control they are comfortable with transitioning to oral will have physical therapy evaluate for appropriate disposition. Will monitor her BP over course of next 24 hours. She continues to diurese well but continues to require oxygen. Today she is finally tolerating room air. Plan is to monitor her for another 24 hours, however, currently there is a significant wind chill and patient has severe raynauds. (2) Acute respiratory failure with hypoxia: Secondary to acute CHF, negative MRSA pneumonia swab she will remain on Zosyn until transitioned to an oral antibiotic or completing a 5-day course which ever comes first Respiratory distress resolved (3) Elevated troponin: Troponin elevated at 0.132 on admission, -Likely myocardial demand ischemia in the setting of CHF not an end STEMI (4) Hyponatremia: Baseline sodium around 130, continue to follow sodium (5) Hyperglycemia: Blood sugar 158 on arrival in the ER, last hemoglobin A1c was 06/2017 was 5.7% Of note, she did get 1 dose of IV Solu-Medrol in route to the hospital (6) Depression: Remains on bupropion (7) Status post aortic valve replacement: Valve was functioning well and the last echo in 12/2017 It is bioprosthetic (8) History of permanent cardiac pacemaker placement: Placed for complete heart block she does have some aberrant conduction this was confirmed by cardiology no adjustments are required -Was interrogated and adjusted when she was here for syncope in 12/2017 (9) Hypothyroid: Continue levothyroxine (10) HTN (hypertension): Has improved with diuresis (11) Ulcer, venous stasis: Chronic on the right leg. Recently found to be infected and growing MSSA and Pseudomonas, was on Cipro and Bactrim for the last few days prior to admission. Her leg actually looks dramatically improved with regard to achieving better volume status -Continuing to hold Cipro and Bactrim while on IV antibiotic for suspected pneumonia as above -Continues on Zosyn depending on the progress of her legs she may not require any antibiotics additionally when she is discharged however given the Pseudomonas was in the culture returning to quinolone may be prudent Plan is to complete 5 days of zosyn. Stop date will be 03/30 (12) CKD (chronic kidney disease) stage 3, GFR 30-59 ml/min: Sent diuresis (13) Pneumonia: With bilateral basilar opacities with pleural effusions and pulmonary edema on chest x-ray. But patient with cough times 1 week and possible fever the night before admission as per patient report. She does live in assisted living. -We will treat with Zosyn -Last day will be 03/30. Will discontinue today. (14) DVT prophylaxis: Lovenox SQ Spent 35 minutes in management. This inclueded discussion with family and consultants. Patient will be in hosptial as she has raynaud's disease. It would be dangerous to discharge her in this cold weather, wind chill is -27. Subjective Patient is now on room air. She continues to feel better. Her shortness of breath has subsided. ROS: well nourished well developed. She is weak and tired complaining of fatigue No double vision blurry vision No problems with speech or swallowing No palpitations, chest pain or pressure No Wheezing or breathing issues No abdominal pain nausea vomiting diarrhea changes in appetite or weight No burning urine urine frequency or changes in color No focal joint pain or muscle pain No skin rashes or oral lesions No unusual bruising or bleeding No focused back pain or numbness or loss of strength No new changes in memory or confusion Physical Exam 2 Vital Signs (Past 24 Hours): Last Vital Signs Temp 36.6 C 03/31/18 15:00 Pulse 61 03/31/18 15:00 Resp 17 03/31/18 15:00 BP 135/69 03/31/18 15:00 Pulse Ox 93 03/31/18 15:00 Physical Exam: The patient appeared thin but no significant distress. Continues to be on nasal cannula Vital signs as documented. Head exam is unremarkable. normocephalic, atraumatic Neck is with only 1 cm jugular venous distension, thyromegaly, or lymphademopathy Lungs are clear to auscultation and percussion. Cardiac exam reveals regular rhythm with a systolic murmur she is paced Abdominal exam reveals normal bowel sounds, no masses, no organomegaly Extremities are only with trace edema bilaterally and both pedal pulses are present but weak Neurologic exam is A&Ox3, no focal deficits, strength is diminished bilaterally Psychologically seems neither anxious or depressed Skin is warm Dry without bruises or lesions, mild pedal edema Lower extremities have discoloration when socks are removed. Pedal pulses are palpated, but feet are cold. Patient is able to move thos extremities. _ (1) Hypothyroid Hypothyroidism type: acquired Qualified Code(s): E03.9 - Hypothyroidism, unspecified
--- NOTE | 2018-04-01 13:42 | Cardiology Progress Note ---
Date of Service April 01, 2018 Assessment & Plan (1) Acute on chronic diastolic (congestive) heart failure: She has diuresed quite well I believe, her weights are somewhat up and down but she has lost about 8 kg (depending on which measurement is correct) and feels much better. Her renal function continues to improve. She is probably going to require very close outpatient follow-up to try to maintain an appropriate fluid balance, she will need to be weighed daily and we will try to have her seen in the office on a regular basis in our heart failure clinic. Hopefully we can keep her fluid under better control in this manner. It may be worthwhile continue to diuresis until her creatinine increases although I doubt she has too much residual fluid. (2) Elevated troponin: Her troponin was slightly elevated in a pattern consistent with demand ischemia, not an acute coronary event. I would not pursue further. (3) Status post aortic valve replacement: Clinically and based on her last echocardiogram for valve is functioning adequately and probably does not explain her presentation. (4) History of permanent cardiac pacemaker placement: Her pacemaker appears to be working well in VVI mode, it is programmed that way due to atrial lead malfunction. This could have something to do with her presentation but it seems it is more likely her volume status not cardiac inefficiency causing it, although lack of atrial kick can contribute it usually does not to this extent. (5) HTN (hypertension): Her blood pressure is reasonably well controlled for the most part although has increased slightly over the last few days, probably adequate at this point. Subjective Physically she seems to be feeling well today. Emotionally she seems to be upset about going to rehab, rather than back to her own room. She denies shortness of breath, she is sitting in her chair without oxygen. Physical Exam 2 Vital Signs (Past 24 Hours): Last Vital Signs Temp 36.5 C 04/01/18 11:06 Pulse 59 L 04/01/18 11:06 Resp 18 04/01/18 11:06 BP 136/77 04/01/18 11:06 Pulse Ox 95 04/01/18 11:06 Physical Exam: Constitutional: Alert, cooperative and in no distress. Pulmonary: Diffuse crackles on auscultation bilaterally. Cardiac: Regular rhythm with a grade 2/6 crescendo decrescendo murmur at the base, no gallop or rub. Abdomen: Soft, nontender with normal bowel sounds. Extremities: No edema. Skin: No rash, ecchymoses or petechiae. Results & Data Diagnostic Findings Telemetry: Ventricular pacing appropriately.
[2018-04-01] MEDS: ENOXAPARIN INJ 30 MG/0.3 ML SYR SQ SCH (18:05)
[2018-04-01] MEDS: MIRTAZAPINE TAB 15 MG TAB PO SCH (20:46)
[2018-04-01] MEDS: ASPIRIN 81 MG ECTAB PO SCH (20:46)
--- NOTE | 2018-04-01 22:47 | Hospitalist Progress Note ---
Date of Service April 01, 2018 Assessment & Plan (1) Acute on chronic diastolic (congestive) heart failure: This patient is an 87-year-old female with a history of complete heart block status post pacemaker, AVR, syncope, hypothyroidism, chronic right leg ulcer currently infected and on antibiotics, HTN, chronic diastolic CHF, who presents from the assisted living portion of [facility] with worsening shortness of breath, cough, and profound hypoxia. acute on chronic diastolic CHF and possible bilateral pneumonia/HCAP. Lasix 40 mg be transition to p.o. twice daily. Cardiology consultation has been following diuresis. Amlodipine still at 5mg. Cardio recommended amlodipine be increased to 10 for better blood pressure control they are comfortable with transitioning to oral will have physical therapy evaluate for appropriate disposition. Will increase amlodipine in AM. She continues to diurese well. She no longer requires oxygen Today she is finally tolerating room air. currently there is a significant wind chill and patient has severe raynauds, will hold discharge for another day. (2) Acute respiratory failure with hypoxia: Secondary to acute CHF, negative MRSA pneumonia swab she will remain on Zosyn until transitioned to an oral antibiotic or completing a 5-day course which ever comes first Respiratory distress resolved (3) Elevated troponin: Troponin elevated at 0.132 on admission, -Likely myocardial demand ischemia in the setting of CHF not an end STEMI (4) Hyponatremia: Baseline sodium around 130, continue to follow sodium (5) Hyperglycemia: Blood sugar 158 on arrival in the ER, last hemoglobin A1c was 06/2017 was 5.7% Of note, she did get 1 dose of IV Solu-Medrol in route to the hospital (6) Depression: Remains on bupropion (7) Status post aortic valve replacement: Valve was functioning well and the last echo in 12/2017 It is bioprosthetic (8) History of permanent cardiac pacemaker placement: Placed for complete heart block she does have some aberrant conduction this was confirmed by cardiology no adjustments are required -Was interrogated and adjusted when she was here for syncope in 12/2017 (9) Hypothyroid: Continue levothyroxine (10) HTN (hypertension): Has improved with diuresis (11) Ulcer, venous stasis: Chronic on the right leg. Recently found to be infected and growing MSSA and Pseudomonas, was on Cipro and Bactrim for the last few days prior to admission. Her leg actually looks dramatically improved with regard to achieving better volume status -Continuing to hold Cipro and Bactrim while on IV antibiotic for suspected pneumonia as above -Continues on Zosyn depending on the progress of her legs she may not require any antibiotics additionally when she is discharged however given the Pseudomonas was in the culture returning to quinolone may be prudent Plan is to complete 5 days of zosyn. Stop date will be 03/30 (12) CKD (chronic kidney disease) stage 3, GFR 30-59 ml/min: Sent diuresis (13) Pneumonia: With bilateral basilar opacities with pleural effusions and pulmonary edema on chest x-ray. But patient with cough times 1 week and possible fever the night before admission as per patient report. She does live in assisted living. -We will treat with Zosyn -Last day will be 03/30. Will discontinue today. (14) DVT prophylaxis: Lovenox SQ Spent 25 minutes in management. This included discussion with family and consultants. Patient will be in hospital as she has raynaud's disease. It would be dangerous to discharge her in this cold weather, wind chill is -20 Subjective Patient is doing well now on room air. She continues to feel better. Her shortness of breath has subsided. ROS: well nourished well developed. She is weak and tired complaining of fatigue No double vision blurry vision No problems with speech or swallowing No palpitations, chest pain or pressure No Wheezing or breathing issues No abdominal pain nausea vomiting diarrhea changes in appetite or weight No burning urine urine frequency or changes in color No focal joint pain or muscle pain No skin rashes or oral lesions No unusual bruising or bleeding No focused back pain or numbness or loss of strength No new changes in memory or confusion Physical Exam 2 Vital Signs (Past 24 Hours): Last Vital Signs Temp 36.5 C 04/01/18 19:15 Pulse 60 04/01/18 19:15 Resp 18 04/01/18 19:15 BP 159/69 H 04/01/18 19:15 Pulse Ox 95 04/01/18 19:15 Physical Exam: The patient appeared thin but no significant distress. Vital signs as documented. Head exam is unremarkable. normocephalic, atraumatic Neck is with only 1 cm jugular venous distension, thyromegaly, or lymphademopathy Lungs are clear to auscultation and percussion. Cardiac exam reveals regular rhythm with a systolic murmur she is paced Abdominal exam reveals normal bowel sounds, no masses, no organomegaly Extremities are only with trace edema bilaterally and both pedal pulses are present but weak Neurologic exam is A&Ox3, no focal deficits, strength is diminished bilaterally Psychologically seems neither anxious or depressed Skin is warm Dry without bruises or lesions, mild pedal edema Lower extremities have discoloration when socks are removed. Pedal pulses are palpated, but feet are cold. Patient is able to move thos extremities. _ (1) Hypothyroid Hypothyroidism type: acquired Qualified Code(s): E03.9 - Hypothyroidism, unspecified
[2018-04-02] MEDS: LEVOTHYROXINE SODIUM 50 MCG TABLET PO SCH (06:09)
[2018-04-02 07:50] LABS: BUN Creatinine Ratio 25.2 (10-20); Calcium 8.4 mg/dl (8.5-10.1); Creatinine Clr Calc Pharmacy 28.3 ml/min; Est GFR (African American) 61.2; Est GFR (Non-African American) 52.8; Potassium 3.6 mmol/L (3.5-5.1)
[2018-04-02] MEDS: DOCUSATE SODIUM 100 MG CAP PO SCH (09:38)
[2018-04-02] MEDS: AMLODIPINE BESYLATE 5 MG TAB PO SCH (09:39)
[2018-04-02] MEDS: BuPROPion SR 100 MG TABCR PO SCH (09:39)
[2018-04-02] MEDS: CEROVITE ADV FORMULA TAB PO SCH (09:39)
[2018-04-02] MEDS: FUROSEMIDE 40 MG TAB PO SCH (09:39)
[2018-04-02 12:36] VITALS: TEMP 97.3; O2SAT 96
[2018-04-02 14:18] VITALS: BP 131/64; PULSE 61
--- NOTE | 2018-04-07 09:57 | Discharge Summary ---
Date of Service April 02, 2018 Admission HPI Per Admitting Provider This patient is an 87-year-old female with a history of complete heart block status post pacemaker, AVR, syncope, hypothyroidism, chronic right leg ulcer currently infected and on antibiotics, HTN, chronic diastolic CHF, who presents from the assisted living portion of [facility] with worsening shortness of breath, cough, and profound hypoxia. The patient reports she started coughing about a week ago and was nonproductive. She does think she had a fever last night although does not know the temperature. Today, her son noted that the visiting nurse noted cyanosis of the lips and her pulse ox was in the 60s. EMS was called and she was given Solu-Medrol and DuoNeb's on the way to the ER. In the ER, she was hypoxic and placed on oxygen supplemental via facemask, her chest x-ray showed pulmonary edema and bilateral effusions with possible atelectasis versus pneumonia at the bases. She had an elevated white blood cell count of 13. Her proBNP was elevated at 9819, and her troponin was elevated at 0.132. The patient denies chest pain and her ECG showed an AV paced rhythm with aberrancy. In the ER, she was given Lasix 20 mg IV x1 and Nitropaste. She had not urinated yet by the time I saw her. Notably, her weight is positive about 5 kg from when she was here in December, however her son notes that she has been eating much better since moving to the [facility] living facility. She will be admitted for acute on chronic diastolic CHF and possible bilateral pneumonia/HCAP. Principal Diagnosis Acute on chronic diastolic heart failure Discharge Exam The patient appeared thin but no significant distress. Vital signs as documented. Head exam is unremarkable. normocephalic, atraumatic Neck: no jugular venous distension, thyromegaly, or lymphademopathy Lungs are clear to auscultation and percussion. Cardiac exam reveals regular rhythm with a systolic murmur she is paced Abdominal exam reveals normal bowel sounds, no masses, no organomegaly Extremities are only with trace edema bilaterally and both pedal pulses are present but weak Neurologic exam is A&Ox3, no focal deficits, strength is diminished bilaterally Psychologically seems neither anxious or depressed Skin is warm Dry without bruises or lesions, mild pedal edema Lower extremities have discoloration when socks are removed. But this is less than before Pedal pulses are palpated, but feet are cold. Patient is able to move those extremities. Discharge Data Allergies Allergy/AdvReac Type Severity Reaction Status Date / Time doxycycline Allergy Unknown RASH Verified 03/25/18 12:17 tetracycline Allergy Unknown Unknown Verified 03/25/18 12:17 Consultations 03/25/18 13:19 ED Decision to Admit Stat 03/25/18 16:09 Consult Cardiology Routine Consult Case Management - Discharge Planning Routine 03/26/18 11:54 Consult Palliative Care Routine Hospital Course (1) Acute on chronic diastolic (congestive) heart failure: This patient is an 87-year-old female with a history of complete heart block status post pacemaker, AVR, syncope, hypothyroidism, chronic right leg ulcer currently infected and on antibiotics, HTN, chronic diastolic CHF, who presents from the [facility] living [facility] with worsening shortness of breath, cough, and profound hypoxia. acute on chronic diastolic CHF and possible bilateral pneumonia/HCAP. Lasix 40 mg be transition to p.o. twice daily. Cardiology consultation has been following diuresis. Amlodipine still at 5mg. Cardio recommended amlodipine be increased to 10 for better blood pressure control they are comfortable with transitioning to oral will have physical therapy evaluate for appropriate disposition. Will increase amlodipine in AM. She continues to diurese well. She no longer requires oxygen Past 36 hours, she has finally tolerating room air. Will discharge patient. (2) Acute respiratory failure with hypoxia: Secondary to acute CHF, negative MRSA pneumonia swab she will remain on Zosyn until transitioned to an oral antibiotic or completing a 5-day course which ever comes first Respiratory distress resolved (3) Elevated troponin: Troponin elevated at 0.132 on admission, -Likely myocardial demand ischemia in the setting of CHF not an end STEMI (4) Hyponatremia: Baseline sodium around 130, continue to follow sodium (5) Hyperglycemia: Blood sugar 158 on arrival in the ER, last hemoglobin A1c was 06/2017 was 5.7% Of note, she did get 1 dose of IV Solu-Medrol in route to the hospital (6) Depression: Remains on bupropion (7) Status post aortic valve replacement: Valve was functioning well and the last echo in 12/2017 It is bioprosthetic (8) History of permanent cardiac pacemaker placement: Placed for complete heart block she does have some aberrant conduction this was confirmed by cardiology no adjustments are required -Was interrogated and adjusted when she was here for syncope in 12/2017 (9) Hypothyroid: Continue levothyroxine (10) HTN (hypertension): Has improved with diuresis (11) Ulcer, venous stasis: Chronic on the right leg. Recently found to be infected and growing MSSA and Pseudomonas, was on Cipro and Bactrim for the last few days prior to admission. Her leg actually looks dramatically improved with regard to achieving better volume status -Continuing to hold Cipro and Bactrim while on IV antibiotic for suspected pneumonia as above -Continues on Zosyn depending on the progress of her legs she may not require any antibiotics additionally when she is discharged however given the Pseudomonas was in the culture returning to quinolone may be prudent Plan is to complete 5 days of zosyn. Stop date will be 03/30 (12) CKD (chronic kidney disease) stage 3, GFR 30-59 ml/min: Sent diuresis (13) Pneumonia: With bilateral basilar opacities with pleural effusions and pulmonary edema on chest x-ray. But patient with cough times 1 week and possible fever the night before admission as per patient report. She does live in assisted living. -We will treat with Zosyn -Last day will be 03/30. (14) DVT prophylaxis: Lovenox SQ Discussed with family and patient. Agree with discharge today. Total Time Total Time Spent Total Time Spent (In Minutes): 33 Total Time Includes: Examination of the Patient, Discharge Planning and Medication Reconciliation Discharge Plan Discharge Items Patient Disposition: Transfer Half-Way Fac Reason For Visit: ACUTE CHF Discharge Diagnosis: Acute chf Discharge Goals: Decrease discomfort Activity: Resume your previous activity Non-emergency contact: Primary Care Provider and Objective C Developer Call non-emergency contact if: you have any medication questions and your symptoms worsen Follow-up/Referrals: Charis Roach PA-C [Physician] - 04/08/18 2:00 pm Diet: Heart Healthy Fluids: 1800ml (7 cups) Addtl Provider Instructions: You were treated for Congestive Heart Failure. You were given Duiretics to help eliminate residual water weight and return you to your normal weight. Will have you continue on your home medicine to help keep your fluid balance. We will also have you continue on water restriction. Prescriptions: New furosemide 40 mg Tablet 40 mg PO QAM Qty: 30 RF: 0 amlodipine [Norvasc] 5 mg Tablet 5 mg PO QAM Qty: 30 RF: 0 Continue sennosides [senna] 8.6 mg Tablet 8.6 mg PO DAILY PRN (Reason: Constipation) RF: 0 acetaminophen [Tylenol] 325 mg Tablet 650 mg PO Q4 PRN (Reason: Pain) RF: 0 aspirin 81 mg Tablet,Delayed Release (Dr/Ec) 81 mg PO HS RF: 0 bupropion HCl [Wellbutrin SR] 100 mg Tablet Sustained-Release 12 Hr 200 mg PO QAM RF: 0 carboxymethylcellulose sodium [Refresh Tears] 0.5 % Drops 1 drp OPHTHALMIC (EYE) Q12 PRN (Reason: Dry Eye(S)) RF: 0 levothyroxine 50 mcg Tablet 50 mcg PO DAILY RF: 0 docusate sodium [Colace] 100 mg Capsule 100 mg PO BID RF: 0 mirtazapine 15 mg Tablet 15 mg PO HS RF: 0 vitamins A,C,C-umfe-drjuvt [PreserVision AREDS] 7,160-113-100 [id number] Tablet 2 tab PO QAM RF: 0 Sugar Free Med Pass 2 dose PO DAILY RF: 0 Discontinued ciprofloxacin HCl [Cipro] 500 mg Tablet 500 mg PO Q12H RF: 0 sulfamethoxazole-trimethoprim [Bactrim DS] 800-160 mg Tablet 1 tab PO BID RF: 0 Stand-Alone Forms: [facility] Discharge Orders: Discharge Order (Routine); Ordered 04/02/18 Ordered By: Billy Arroyo Skilled Items Patient informed of condition?: Yes DNR: Yes Discharge Level of Care: Skilled Communicable Disease: No Discharge Prognosis: Stable Admission Data Admit Date/Time: 03/25/18 14:15 Attending Provider: Billy Arroyo Admit Provider: Mable Bryan Primary Care Provider: Galdino Ibarra Other Providers: Mable Bryan ; Pedro Bosch ; Cecilia Chow Service: Telemetry Other Interventions: Discharge Summary Assessment (RN) Last Done: 04/02/18 14:10 DC Date/Time DO NOT enter until pt leaves facility: 04/02/18 16:38
== END 2018-04-02 16:38 | DRG 291 ==
LOC: ED 11:26 → SUATTDRO 14:15 → 2E 14:15 → 2N 03-27 12:23
DX: E03.9 Hypothyroidism, unspecified; F32.9 Major depressive disorder, single episode, unspecified; Z95.0 Presence of cardiac pacemaker; B95.61 Methicillin susceptible Staphylococcus aureus infection as the cause of diseases classified elsewhere; J96.01 Acute respiratory failure with hypoxia; B96.5 Pseudomonas (aeruginosa) (mallei) (pseudomallei) as the cause of diseases classified elsewhere; G62.9 Polyneuropathy, unspecified; E87.1 Hypo-osmolality and hyponatremia; Z95.2 Presence of prosthetic heart valve; I13.0 Hypertensive heart and chronic kidney disease with heart failure and stage 1 through stage 4 chronic kidney disease, or unspecified chronic kidney disease; Z83.3 Family history of diabetes mellitus; L97.919 Non-pressure chronic ulcer of unspecified part of right lower leg with unspecified severity; Z88.1 Allergy status to other antibiotic agents; I50.33 Acute on chronic diastolic (congestive) heart failure; J18.9 Pneumonia, unspecified organism; N18.3 Chronic kidney disease, stage 3 (moderate); I87.8 Other specified disorders of veins

== ENCOUNTER 2018-07-30 22:00 | Inpatient (IN) ==
[2018-07-30] MEDS ORDERED: LORazepam 1 MG TAB SL STA (22:19)
--- NOTE | 2018-07-30 22:31 | Emergency Department Note ---
History of Present Illness General Chief complaint: Fall Stated complaint: fall/ L leg pain History of Present Illness Maximum Pain Intensity: 5 This 87-year-old presents to the ER complaining of left hip pain Location: Left hip Quality: Achy Severity: Moderate Duration: Tonight Timing: Patient fell while reaching for the lamp landing on her left side Context: Pain persisted and patient was sent in Modifying factors: better with rest; worse with activity Patient denies head injury, neck pain, back pain, chest pain, dyspnea, numbness, tingling or any other medical complaints. She states her pulse ox is normal in the low 90s. She is on a baby aspirin. Home Medications Home Medications Medication Instructions Recorded Confirmed Type PreserVision AREDS 2 tab PO QAM 03/25/18 07/30/18 History acetaminophen [Tylenol] 650 mg PO Q4 PRN MDD 3 GRAMS/03/25/18 07/30/18 History HOURS aspirin 81 mg PO HS 03/25/18 07/30/18 History bupropion HCl [Wellbutrin SR] 200 mg PO QAM 03/25/18 07/30/18 History docusate sodium [Colace] 100 mg PO BID 03/25/18 07/30/18 History levothyroxine 50 mcg PO DAILY 03/25/18 07/30/18 History mirtazapine 15 mg PO HS 03/25/18 07/30/18 History sennosides [senna] 8.6 mg PO .[id number] PRN 03/25/18 07/30/18 History amlodipine [Norvasc] 5 mg PO QAM #30 tab 04/02/18 07/30/18 Rx furosemide 40 mg PO QAM #30 tab 04/02/18 07/30/18 Rx carboxymethylcellulose sodium 0.5 1 drops OP BID PRN 06/22/18 07/30/18 History % eye drops potassium chloride ER 20 mEq 20 meq PO DAILY 06/22/18 07/30/18 History tablet,extended release(part/cryst) sulfamethoxazole 800 1 tab PO BID 14 Days #28 tab 07/22/18 07/30/18 Rx mg-trimethoprim 160 mg tablet mineral oil-hydrophil petrolat 1 applic TOPICAL BID PRN 07/30/18 07/30/18 History [Aquaphor] nut.tx.gluc.intol,lac-free,soy 1 ea PO BID 07/30/18 07/30/18 History [Glucerna] Allergies Allergy/AdvReac Type Severity Reaction Status Date / Time doxycycline Allergy Unknown RASH Verified 07/30/18 22:34 tetracycline Allergy Unknown Unknown Verified 07/30/18 22:34 cefdinir AdvReac Mild Gastrointestinal Verified 07/30/18 22:34 Upset Past Med/Surg History Medical History 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 S/p pacemaker placement Unilateral edema of lower extremity Peripheral neuropathy Hypothyroid HTN (hypertension) Depression (Chronic) Depression (Chronic) Hyperglycemia (Chronic) Hyponatremia (Chronic) Acute delirium (Resolved) Ulcer, venous stasis Surgical History Status post total hysterectomy and bilateral salpingo-oophorectomy Status post aortic valve replacement History of permanent cardiac pacemaker placement Heart valve replaced Heart valve replaced (Chronic) History of appendectomy History of tonsillectomy Family History Other Diabetes Hypertension Social History Preferred Language: Estonian Communication Ability: Effective Visual Impairment: No Limitations Hearing Ability: Hard of Hearing Beliefs That Will Affect Care: None marital status: / Current Living Situation: Alone Current Living Situation Comment: alone at home current occupational status: retired Feels Safe at Home: Yes Smoking Status: Never smoker Second Hand Exposure: No Hx Alcohol Use: Yes Alcohol type: wine Hx Substance Use: No Review of Systems All systems reviewed & are unremarkable except as noted in HPI & below Physical Exam Vital Signs Vital Signs - 24 hr 07/30/18 22:00 07/30/18 23:50 Temperature 36.5 C Temperature Source Oral Sepsis Recent Fever Within 48 Hours No Sepsis New/Unexplained Change in Mental Status No Sepsis Action Taken by Nursing No Action Required Pulse Rate 77 Pulse Rate [Right Finger] 72 Pulse Rhythm Regular Pulse Rhythm [Right Finger] Regular Pulse Strength Normal Pulse Strength [Right Finger] Normal Respiratory Rate 22 20 Respiratory Effort / Characteristics Non-Labored Non-Labored Respiratory Depth Normal Normal Respiratory Pattern Regular Regular Blood Pressure 178/73 H Blood Pressure [Right Arm] 166/73 H Blood Pressure Mean 108 Blood Pressure Mean [Right Arm] 104 Blood Pressure Position Lying Blood Pressure Position [Right Arm] Lying Pulse Oximetry 90 95 Oxygen Delivery Method Room Air Nasal Cannula Oxygen Flow Rate 2 VITALS: Vitals are noted on the nurse's note and reviewed by myself. Vital signs hypertensive. GENERAL: Pleasant female, in no acute distress, nondiaphoretic, well-developed well-nourished. SKIN: Skin tears to right forearm, ulcers to lower legs that are being followed by the wound care clinic, the rest of the skin was without rashes, erythema, edema, or bruising. There is no tenting of the skin. Capillary reflex less than 2 seconds. HEAD: Normocephalic atraumatic. EARS: External auditory canals clear, tympanic membranes pearly jj without erythema or effusion bilaterally. EYES: Pupils equal round and reactive to light and accommodation. Conjunctivae without injection, sclerae without icterus. Extraocular movements intact. NOSE: Patent, turbinates without inflammation or discharge. MOUTH: Mucous membranes moist. Pharynx without erythema or exudate. Uvula midline. Airway patent. Tongue does not deviate. NECK: Supple without nuchal rigidity. No lymphadenopathy. No thyromegaly. Cervical spine is nontender. No JVD. HEART: Regular rate and rhythm 2/6 systolic murmur LUNGS: Clear to auscultation bilaterally without wheezes, rales or rhonchi. No retractions or accessory muscle use. ABDOMEN: Positive bowel sounds x 4. Normal tympanic percussion. Soft, nontender, without masses or organomegaly. Zuleta sign negative. No guarding or rebound tenderness. No CVA tenderness MUSCULOSKELETAL: No muscle atrophy, erythema, or edema noted. Left hip tender to palpation with increased pain with range of motion. No thoracic or lumbar tenderness on exam. Pelvis stable. NEURO: Patient was alert and oriented to person place and time. Normal sensat ion to light and sharp touch. No focal neurological deficits. Course Administered Medications Discontinued Medications Lorazepam (Ativan) 0.5 mg SL NOW STA Stop: 07/30/18 22:20 Last Admin: 07/30/18 22:29 Dose: 0.5 mg Documented by: [id number] Medical Decision Making Medical Records Attestation: I reviewed the patient's medical records. Home Medications Current Medication List: was personally reviewed by me Laboratory Data Result diagrams: 07/30/18 22:59 07/30/18 22:59 Lab Results 07/30/18 07/30/18 07/30/18 Range/Units 22:59 22:59 22:59 WBC 11.65 H (4.8-10.8) K/uL RBC 4.53 (4.2-5.4) M/uL Hgb 12.2 (12.0-16.0) g/dL Hct 35.6 L (37-47) % MCV 78.6 L (80-100) fL MCH 26.9 (25-34) pg MCHC 34.3 (32-36) g/dL RDW Std Deviation 40.3 (36.4-46.3) fL RDW Coeff of Kem 14.4 (11.5-14.5) % Plt Count 221 (130-400) K/uL MPV 9.7 (7.4-10.4) fL Immature Gran % (Auto) 0.5 % Neut % (Auto) 80.4 % Lymph % (Auto) 8.8 % Bell % (Auto) 7.6 % Eos % (Auto) 2.4 % Baso % (Auto) 0.3 % Immature Gran # (Auto) 0.06 H (0.00-0.02) K/uL Neut # (Auto) 9.36 H (1.4-6.5) K/uL Lymph # (Auto) 1.03 L (1.2-3.4) K/uL Bell # (Auto) 0.89 H (0.11-0.59) K/uL Eos # (Auto) 0.28 (0-0.5) K/uL Baso # (Auto) 0.03 (0-0.2) K/uL PT 12.0 (9.0-12.0) Seconds INR 1.2 H (0.9-1.1) APTT 26.3 (21.0-31.0) Seconds PTT Ratio 1.0 Sodium 130 L (136-145) mmol/L Potassium 3.5 (3.5-5.1) mmol/L Chloride 95 L (98-107) mmol/L Carbon Dioxide 26 (21-32) mmol/L Anion Gap 9.0 (3-11) BUN 27 H (7-18) mg/dl Creatinine 1.71 H (0.6-1.2) mg/dl Est Cr Clr Drug Dosing 17.2 ml/min Est GFR ( Amer) 30.5 Est GFR (Non-Af Amer) 26.3 BUN/Creatinine Ratio 15.6 (10-20) Glucose 128 H (70-99) mg/dl Calcium 8.7 (8.5-10.1) mg/dl Total Bilirubin 0.4 (0.2-1) mg/dl AST 18 (15-37) U/L ALT 24 (12-78) U/L Alkaline Phosphatase 146 H (45-117) U/L Total Protein 7.4 (6.4-8.2) gm/dl Albumin 3.6 (3.4-5.0) gm/dl Globulin 3.8 (2.5-4.0) gm/dl Albumin/Globulin Ratio 0.9 (0.9-2) Blood Type Antibody Screen 07/30/18 Range/Units 23:12 WBC (4.8-10.8) K/uL RBC (4.2-5.4) M/uL Hgb (12.0-16.0) g/dL Hct (37-47) % MCV (80-100) fL MCH (25-34) pg MCHC (32-36) g/dL RDW Std Deviation (36.4-46.3) fL RDW Coeff of Kem (11.5-14.5) % Plt Count (130-400) K/uL MPV (7.4-10.4) fL Immature Gran % (Auto) % Neut % (Auto) % Lymph % (Auto) % Bell % (Auto) % Eos % (Auto) % Baso % (Auto) % Immature Gran # (Auto) (0.00-0.02) K/uL Neut # (Auto) (1.4-6.5) K/uL Lymph # (Auto) (1.2-3.4) K/uL Bell # (Auto) (0.11-0.59) K/uL Eos # (Auto) (0-0.5) K/uL Baso # (Auto) (0-0.2) K/uL PT (9.0-12.0) Seconds INR (0.9-1.1) APTT (21.0-31.0) Seconds PTT Ratio Sodium (136-145) mmol/L Potassium (3.5-5.1) mmol/L Chloride (98-107) mmol/L Carbon Dioxide (21-32) mmol/L Anion Gap (3-11) BUN (7-18) mg/dl Creatinine (0.6-1.2) mg/dl Est Cr Clr Drug Dosing ml/min Est GFR ( Amer) Est GFR (Non-Af Amer) BUN/Creatinine Ratio (10-20) Glucose (70-99) mg/dl Calcium (8.5-10.1) mg/dl Total Bilirubin (0.2-1) mg/dl AST (15-37) U/L ALT (12-78) U/L Alkaline Phosphatase (45-117) U/L Total Protein (6.4-8.2) gm/dl Albumin (3.4-5.0) gm/dl Globulin (2.5-4.0) gm/dl Albumin/Globulin Ratio (0.9-2) Blood Type A Positive Antibody Screen NEGATIVE Imaging Data Attestation: I personally reviewed and interpreted this imaging study as follows: Blood Pressure Blood Pressure Findings: Elevated blood pressure Blood Pressure Disposition: Referred to patients primary care provider [facility] Narrative Prior records reviewed and summarized above. Triage Nursing notes reviewed. Additional history obtained from family. The patient's history was concerning for hip injury. Differential diagnosis: Etiologies such as fracture, dislocation, neurovascular compromise, compartment syndrome, soft tissue injury, as well as others were entertained. Physical examination: Consistent with an isolated hip injury. ER treatment provided: IV lock Ativan p.o. NPO Bedrest On reassessment the patient felt better. Diagnostics interpreted by me: ECG: Paced ventricular rhythm with no acute ST-T wave changes, rate of 61. Impression paced ventricular rhythm The labs revealed mild leukocytosis. Creatinine 1.7. Type and screen sent Imaging studies: Xrays SINGLE VIEW CHEST CLINICAL HISTORY: Fall. Hip fracture. Preoperative examination. FINDINGS: An AP, portable, supine chest radiograph is compared to study dated 03/25/2018. The examination is degraded by portable technique and patient rotation. The patient is status post midline sternotomy and cardiac valve surgery. A 2-lead cardiac pacemaker is unchanged in position and partially obscures the left upper chest. The heart is mildly enlarged and there is atherosclerotic calcification of the thoracic aorta. There are right larger than left pleural effusions. Asymmetric opacification of the right hemithorax as compared to the left is likely related to a dependent layering pleural effusion given supine positioning. Biapical scarring is similar to previous. No pneumothorax is seen. The skeletal structures are osteopenic. The bony thorax is grossly intact. IMPRESSION: 1. Cardiomegaly and cardiac pacemaker. There is no radiographic evidence of congestive failure 2. There are right larger than left pleural effusions. 3. Asymmetric opacification of the right hemithorax is compared to left likely represents a layering pleural effusion due to supine positioning. Correlate clinically for evidence of superimposed airspace consolidation. Electronically signed by: Gavino Brand M.D. SINGLE VIEW PELVIS; 2 VIEWS LEFT HIP CLINICAL HISTORY: Fall. Left hip injury. FINDINGS: An AP view of the pelvis with AP and crosstable lateral views of the left hip are compared to study dated 01/13/2018. The skeletal structures are osteopenic. There is an impacted and mildly distracted subcapital fracture of the left femur with overlying soft tissue edema. No additional fracture is seen involving the bony pelvis or the right hip. Degenerative change and joint space narrowing is seen in the hips. The sacroiliac joints are normal. There are pelvic phleboliths. No bowel obstruction is seen. IMPRESSION: There is an impacted subcapital fracture of the left femur as above. Electronically signed by: Gavino Brand M.D. 07/30/2018 10:55 PM Dictated: 07/30/18 225 Transcribed: 07/30/18 225 The patient has an isolated hip fracture and will need admission to the hospital. Patient and family are agreeable treatment plan of admission. Patient was admitted to medicine. Consultation: A consultation was placed with medicine, Dr. Andrade and orthopedics, Dr. Bernard was notified. The case was discussed and diagnostics were reviewed. The patient was evaluated in the ER for further treatment. Case reviewed with my attending The chart was completed utilizing [employer] voice recognition software. Grammatical errors, random word insertions, pronoun errors, and incomplete sentences are an occassional consequence of this system due to software limitations, ambient noise, and hardware issues. Any formal questions or concerns about the content, text, or information contained within the body of this dictation should be directly addressed to the physician assistant administrator for clarification. Impression & Plan Closed hip fracture Discharge Plan Visit Data Chief Complaint: Fall Stated Complaint: fall/ L leg pain ED Provider: Gavino Mon ED Midlevel Provider: Reshma Crawford Discharge Problem: Closed hip fracture Patient Disposition: Admitted As Inpatient Condition: Fair Forms Stand Alone Forms: [facility] Prescriptions Prescriptions: No Action potassium chloride [Klor-Con M20] 20 mEq tablet,ER particles/crystals 20 meq PO DAILY RF: 0 Refresh Tears 0.5 % drops 1 drops OP BID PRN (Reason: dry eye(s)) RF: 0 sulfamethoxazole-trimethoprim 800-160 mg tablet 1 tab PO BID 14 Days Qty: 28 RF: 0 sennosides [senna] 8.6 mg Tablet 8.6 mg PO .[id number] PRN (Reason: Constipation) RF: 0 acetaminophen [Tylenol] 325 mg Tablet 650 mg PO Q4 MDD 3 GRAMS/24 HOURS PRN (Reason: Fever Or Pain) RF: 0 aspirin 81 mg Tablet,Delayed Release (Dr/Ec) 81 mg PO HS RF: 0 bupropion HCl [Wellbutrin SR] 100 mg Tablet Sustained-Release 12 Hr 200 mg PO QAM RF: 0 levothyroxine 50 mcg Tablet 50 mcg PO DAILY RF: 0 docusate sodium [Colace] 100 mg Capsule 100 mg PO BID RF: 0 mirtazapine 15 mg Tablet 15 mg PO HS RF: 0 PreserVision AREDS 7,160-113-100 [id number] Tablet 2 tab PO QAM RF: 0 furosemide 40 mg Tablet 40 mg PO QAM Qty: 30 RF: 0 amlodipine [Norvasc] 5 mg Tablet 5 mg PO QAM Qty: 30 RF: 0 Aquaphor Ointment 1 applic TOPICAL BID PRN (Reason: Dry Skin) RF: 0 Glucerna Liquid 1 ea PO BID RF: 0 Referrals Referrals: Galdino Ibarra MD [Primary Care Provider] - Discharge Problem: Closed hip fracture Qualifiers: Encounter type: initial encounter Laterality: left Qualified Code(s): S72.002A - Fracture of unspecified part of neck of left femur, initial encounter for closed fracture
--- NOTE | 2018-07-30 22:57 | XRay Report ---
SINGLE VIEW PELVIS; 2 VIEWS LEFT HIP CLINICAL HISTORY: Fall. Left hip injury. FINDINGS: An AP view of the pelvis with AP and crosstable lateral views of the left hip are compared to study dated 01/13/2018. The skeletal structures are osteopenic. There is an impacted and mildly di stracted subcapital fracture of the left femur with overlying soft tissue edema. No additional fractu re is seen involving the bony pelvis or the right hip. Degenerative change and joint space narrowing is seen in the hips. The sacroiliac joints are normal. There are pelvic phleboliths. No bowel obstruc tion is seen. IMPRESSION: There is an impacted subcapital fracture of the left femur as above. Electronically signed by: Gavino Brnad M.D. 07/30/2018 10:55 PM
--- NOTE | 2018-07-30 23:08 | XRay Report ---
SINGLE VIEW CHEST CLINICAL HISTORY: Fall. Hip fracture. Preoperative examination. FINDINGS: An AP, portable, supine chest radiograph is compared to study dated 03/25/2018. The examinat ion is degraded by portable technique and patient rotation. The patient is status post midline sterno chilo and cardiac valve surgery. A 2-lead cardiac pacemaker is unchanged in position and partially obs cures the left upper chest. The heart is mildly enlarged and there is atherosclerotic calcification o f the thoracic aorta. There are right larger than left pleural effusions. Asymmetric opacification of the right hemithorax as compared to the left is likely related to a dependent layering pleural effus ion given supine positioning. Biapical scarring is similar to previous. No pneumothorax is seen. The skeletal structures are osteopenic. The bony thorax is grossly intact. IMPRESSION: 1. Cardiomegaly and cardiac pacemaker. There is no radiographic evidence of congestive failure 2. There are right larger than left pleural effusions. 3. Asymmetric opacification of the right hemithorax is compared to left likely represents a layering pleural effusion due to supine positioning. Correlate clinically for evidence of superimposed airspac e consolidation. Electronically signed by: Gavino Brand M.D. 07/30/2018 11:06 PM
[2018-07-30 23:11] LABS: Basophils # (auto) 0.03 K/uL (0-0.2); Basophils % (auto) 0.3 %; Eosinophils # (auto) 0.28 K/uL (0-0.5); Eosinophils % (auto) 2.4 %; Hematocrit (blood only) 35.6 % (37-47); Hemoglobin 12.2 g/dL (12.0-16.0); Immature Granulocytes # (auto) 0.06 K/uL (0.00-0.02); Immature Granulocytes % (auto) 0.5 %; Lymphocytes # (auto) 1.03 K/uL (1.2-3.4); Lymphocytes % (auto) 8.8 %; Mean Corpuscular Hgb Conc 34.3 g/dL (32-36); Mean Corpuscular Volume 78.6 fL (80-100); Mean Platelet Volume 9.7 fL (7.4-10.4); Monocytes # (auto) 0.89 K/uL (0.11-0.59); Monocytes % (auto) 7.6 %; Neutrophils # (auto) 9.36 K/uL (1.4-6.5); Neutrophils % (auto) 80.4 %; Platelet Count 221 K/uL (130-400); RDW Coefficient of Variation 14.4 % (11.5-14.5); RDW Standard Deviation 40.3 fL (36.4-46.3); Red Blood Count 4.53 M/uL (4.2-5.4); White Blood Count 11.65 K/uL (4.8-10.8)
--- NOTE | 2018-07-30 23:22 | Emergency Department Note ---
ED Visit Note Patient was seen by our PA/HOUSEKEEPING CLEANER. I was involved in the patient's care and did evaluate the patient myself. I was involved in the care throughout the ER stay. Patient presents after a ground-level fall. She has a hip fracture by work-up. No other complaints of pain elsewhere, no evidence on exam for head injury and no history of head injury. She is not on blood thinners. She is being hospitalized. .
[2018-07-30 23:31] LABS: INR 1.2 (0.9-1.1); Partial Thromboplastin Time 26.3 Seconds (21.0-31.0)
[2018-07-30 23:34] LABS: Albumin Level 3.6 gm/dl (3.4-5.0); BUN Creatinine Ratio 15.6 (10-20); Calcium 8.7 mg/dl (8.5-10.1); Creatinine Clr Calc Pharmacy 17.2 ml/min; Est GFR (African American) 30.5; Est GFR (Non-African American) 26.3; Potassium 3.5 mmol/L (3.5-5.1)
[2018-07-30 23:38] LABS: Albumin Globulin Ratio 0.9 (0.9-2); Bilirubin,Total 0.4 mg/dl (0.2-1); Globulin 3.8 gm/dl (2.5-4.0); Total Protein 7.4 gm/dl (6.4-8.2)
--- NOTE | 2018-07-31 00:55 | History & Physical Report ---
Date of Service July 31, 2018 Assessment & Plan (1) Closed hip fracture: Cynthia is a 87 year old female with a closed left hip fracture Left hip fracture - consult Dr. Bernard - neurochecks q4 - Type and cross blood - Tylenol 650mg prn for pain - Hold aspirin - will hold off on SCD's due to very sensitive lower extremities - will ask Cardiology to see pt per family request and to assess cardiac status prior to surgery CHF/ AVR / Complete Heart block /HTN - most recent echo from january 2018 showed small left ventricle with hyperdynamic systolic function - continue lasix - monitor I/O's, fuentes placed - continue amlodipine - hold asa - Consult cards Lower extremity venous ulceration - appears well healed - continue bactrim Depression - continue mirtazapine and wellbutrin Hypothyroidism - continue synthroid DVT proph - hold off prior to surgery Code - DNR History of Present Illness Chief Complaint: hip pain Primary Care Provider: Galdino Ibarra MD Cynthia is a 87 year old female with a PMH of CHF, Complete heart block w/ pacer, Aortic valve replacement, Depression, HTN, Hypothyroidism, CKD and Chronic R venous ulcer that presents to [facility] after having a fall at [facility] This evening she was in her room with her walker. She was at her bedside table about to grab a book when she felt very unsteady grabbed the light pole next to her and fell to the ground on her left hip. The staff then came to her room and called EMS. Patient notes that she her eyesight (macular degeneration) and peripheral neuropathy have been worsening over the past several months. In the ED patient had a XRAY which showed a left hip fx. She is not any blood thinners except aspirin. She is being given abx for a R lower chronic venous ulcer that currently appears well healed. Family is requesting for a apparel machinery instructor to see them prior to pt going for surgery. She denies any syncope, dizziness, palpitations, chest pain, fevers, chills, shortness of breath, leg swelling, dysuria, headaches Allergies Allergy/AdvReac Type Severity Reaction Status Date / Time doxycycline Allergy Unknown RASH Verified 07/30/18 22:34 tetracycline Allergy Unknown Unknown Verified 07/30/18 22:34 cefdinir AdvReac Mild Gastrointestinal Verified 07/30/18 22:34 Upset Home Medications Home Medications Medication Instructions Recorded Confirmed Type PreserVision AREDS 2 tab PO QAM 03/25/18 07/30/18 History acetaminophen [Tylenol] 650 mg PO Q4 PRN MDD 3 GRAMS/03/25/18 07/30/18 History HOURS aspirin 81 mg PO HS 03/25/18 07/30/18 History bupropion HCl [Wellbutrin SR] 200 mg PO QAM 03/25/18 07/30/18 History docusate sodium [Colace] 100 mg PO BID 03/25/18 07/30/18 History levothyroxine 50 mcg PO DAILY 03/25/18 07/30/18 History mirtazapine 15 mg PO HS 03/25/18 07/30/18 History sennosides [senna] 8.6 mg PO .[id number] PRN 03/25/18 07/30/18 History amlodipine [Norvasc] 5 mg PO QAM #30 tab 04/02/18 07/30/18 Rx furosemide 40 mg PO QAM #30 tab 04/02/18 07/30/18 Rx carboxymethylcellulose sodium 0.5 1 drops OP BID PRN 06/22/18 07/30/18 History % eye drops potassium chloride ER 20 mEq 20 meq PO DAILY 06/22/18 07/30/18 History tablet,extended release(part/cryst) sulfamethoxazole 800 1 tab PO BID 14 Days #28 tab 07/22/18 07/30/18 Rx mg-trimethoprim 160 mg tablet mineral oil-hydrophil petrolat 1 applic TOPICAL BID PRN 07/30/18 07/30/18 History [Aquaphor] nut.tx.gluc.intol,lac-free,soy 1 ea PO BID 07/30/18 07/30/18 History [Glucerna] Past Med/Surg History Medical History Diastolic CHF due to valvular disease hospitalization in March 2018 Third degree AV block S/p pacemaker placement Unilateral edema of lower extremity Peripheral neuropathy Hypothyroid HTN (hypertension) Depression (Chronic) Depression (Chronic) Hyperglycemia (Chronic) Hyponatremia (Chronic) Acute delirium (Resolved) Ulcer, venous stasis Surgical History Status post total hysterectomy and bilateral salpingo-oophorectomy Status post aortic valve replacement History of permanent cardiac pacemaker placement Heart valve replaced Heart valve replaced (Chronic) History of appendectomy History of tonsillectomy Family History Other Diabetes Hypertension Social History Preferred Language: Turkish Communication Ability: Effective Communication Ability Comment: Pt hard of hearing Visual Impairment: No Limitations Hearing Ability: Hard of Hearing [employer]ime [employer] Worker Helper Required: No Beliefs That Will Affect Care: None marital status: / Current Living Situation: Personal Care Facility Current Living Situation Comment: [facility] current occupational status: retired Other Information That Helps Us Care for You: No Feels Safe at Home: Yes Safety Concerns: Feels Safe At This Time Smoking Status: Never smoker Second Hand Exposure: No Hx Alcohol Use: No Hx Substance Use: No Review of Systems Review of Systems: 10 systems were reviewed and are negative Physical Exam Physical Exam: Gen: alert and in no acute distress Lungs: clear to auscultation bilaterally Cardiac: 2/6 systolic murmur best heard over the aortic valve, JVD mildly elevated 1/3 to angle of mandible Abdomen: soft and non tender with normal bowel sounds Lower extremities: left leg is shortened and internally rotated, no pain to palpation over hip, chronic venous changes with dry sloughing of skin, superficial open area on left leg, both legs painful to palpation, strong peripheral pulses and bilateral lower extremities intact Psych: alert and orientated Results & Data Vital Signs (Past 12 Hours) Vital Signs Temp Pulse Pulse Resp BP BP Pulse Ox 07/30/18 23:50 72 20 166/73 H 95 07/30/18 22:00 36.5 C 77 22 178/73 H 90 Supervising Physician Co-Signing Physician Notes Attending addendum: I have physically seen this patient, have supervised the medical residents activities, and agree with the H&P unless as otherwise noted. Assessment and Plan: Closed left hip fracture status post mechanical fall- Admit to MedSurg. Hold aspirin. Consult orthopedics Dr. Bernard. CHF/AVR/history complete heart block/hypertension- Hold aspirin and Lasix Continue amlodipine. Consult cardiology. Lower extremity venous ulceration- Continue Bactrim. Wound care. Remainder of orders notations as noted. (1) Closed hip fracture Encounter type: initial encounter Laterality: left Qualified Code(s): S72.002A - Fracture of unspecified part of neck of left femur, initial encounter for closed fracture
[2018-07-31] MEDS ORDERED: BISACODYL 10 MG SUPP PR PRN (01:14)
[2018-07-31] MEDS ORDERED: SENNA 8.6 MG TAB PO PRN (01:14)
[2018-07-31] MEDS ORDERED: ONDANSETRON INJ 2 MG/ML 2 ML VIAL IV PRN ×2 (01:14→12:03)
[2018-07-31] MEDS ORDERED: ARTIFICIAL TEARS OP PRN (01:14)
[2018-07-31] MEDS ORDERED: MAGNESIUM HYDROXIDE SUSP 30 ML UDC PO PRN (01:14)
[2018-07-31] MEDS ORDERED: NALOXONE HCL 0.4 MG/1 ML VIAL/CARP IV PRN (01:14)
[2018-07-31] MEDS ORDERED: AQUAPHOR OINT 454 GM JAR EXT PRN (01:14)
[2018-07-31] MEDS: SODIUM CHLORIDE 0.9% 1000ML 1,000 ML IV SCH ×2 (01:53→21:06)
[2018-07-31] MEDS ORDERED: BACTRIM~PHARMACY CONSULT IN PROGRESS PRN (03:53)
[2018-07-31 05:04] LABS: Appearance Urine Clear (Clear); Bilirubin Urine Negative (Negative); Blood Urine Negative (Negative); Color Urine Yellow; Glucose Urine UA Negative (Negative); Ketones Urine Negative (Negative); Leukocyte Esterase Urine Negative (Negative); Nitrite Urine Negative (Negative); Protein Urine Negative (Negative); Specific Gravity Urine 1.019 (1.000-1.030); Urobilinogen Urine Negative (Negative); pH Urine 6.5 (4.5-7.5)
[2018-07-31] MEDS: LEVOTHYROXINE SODIUM 50 MCG TABLET PO SCH ×2 (06:17→09:22)
--- NOTE | 2018-07-31 08:02 | Anesthesiology Consultation ---
Date of Service July 31, 2018 Assessment & Plan Chart Review Chart Review: Acceptable Risk for Surgery and Patient NOT seen in Pre Admission Testing Consults Requested none Pt being followed by hospitalist who states that patient is optimized for surgery ASA [id number] Proposed Anesthesia Anesthesia Type: General Risk / Benefits Reviewed With: PT / POA / Parent / Guardian, Accepts Plan and Informed Consent Obtained Additional Comments: Discussed r/b of GA with patient and her 2 sons. All quest ions and concerns were answered. Explained that she is at moderate risk/increased risk for having complications due to her cardiac morbidities including her recent hospitalization in March for CHF/pulmonary edema. Pt and sons understood and accepting risks. Also discussed her DNR/DNI status and ex plained that it will be on hold while we are intraop and can be resumed after. Pt and her family agreed. Consent was signed and witnessed. History Surgery Operation Date: 07/31/18 13:00 Proposed Procedures p Bipolar Hip Arthroplasty Anterior Approa(Left) - Isaías Bernard, Height/Weight Height: 1.63 m Weight: 47.6 kg Allergies Allergy/AdvReac Type Severity Reaction Status Date / Time doxycycline Allergy Unknown RASH Verified 07/30/18 22:34 tetracycline Allergy Unknown Unknown Verified 07/30/18 22:34 cefdinir AdvReac Mild Gastrointestinal Verified 07/30/18 22:34 Upset Medications Home Medications Medication Instructions Recorded Confirmed Last Taken PreserVision AREDS 2 tab PO QAM 03/25/18 07/30/18 Unknown acetaminophen [Tylenol] 650 mg PO Q4 PRN MDD 3 GRAMS/24 03/25/18 07/30/18 Unknown HOURS aspirin 81 mg PO HS 03/25/18 07/30/18 Unknown bupropion HCl [Wellbutrin SR] 200 mg PO QAM 03/25/18 07/30/18 Unknown docusate sodium [Colace] 100 mg PO BID 03/25/18 07/30/18 Unknown levothyroxine 50 mcg PO DAILY 03/25/18 07/30/18 Unknown mirtazapine 15 mg PO HS 03/25/18 07/30/18 Unknown sennosides [senna] 8.6 mg PO .[id number] PRN 03/25/18 07/30/18 Unknown amlodipine [Norvasc] 5 mg PO QAM #30 tab 04/02/18 07/30/18 Unknown furosemide 40 mg PO QAM #30 tab 04/02/18 07/30/18 Unknown carboxymethylcellulose sodium 0.5 1 drops OP BID PRN 06/22/18 07/30/18 Unknown % eye drops potassium chloride ER 20 mEq 20 meq PO DAILY 06/22/18 07/30/18 Unknown tablet,extended release(part/cryst) sulfamethoxazole 800 1 tab PO BID 14 Days #28 tab 07/22/18 07/30/18 Unknown mg-trimethoprim 160 mg tablet mineral oil-hydrophil petrolat 1 applic TOPICAL BID PRN 07/30/18 07/30/18 Unknown [Aquaphor] nut.tx.gluc.intol,lac-free,soy 1 ea PO BID 07/30/18 07/30/18 Unknown [Glucerna] Active Medications Generic Name Dose Route Start Last Admin Trade Name Freq PRN Reason Stop Dose Admin Amlodipine Besylate 5 mg 07/31/18 09:00 07/31/18 09:20 Norvasc PO 08/30/18 08:59 5 mg QAM FRANKLIN Administration Bupropion HCl 200 mg 07/31/18 09:00 07/31/18 09:23 Wellbutrin-Sr PO 08/30/18 08:59 200 mg QAM FRANKLIN Administration Docusate Sodium 100 mg 07/31/18 09:00 07/31/18 09:28 Colace PO 08/30/18 08:59 Not Given BID FRANKLIN Furosemide 40 mg 07/31/18 09:00 07/31/18 09:22 Lasix PO 08/30/18 08:59 40 mg QAM FRANKLIN Administration Sodium Chloride 1,000 mls @ 80 mls/hr 07/31/18 01:14 07/31/18 01:53 Nss 1000ml IV 08/30/18 01:13 80 mls/hr .[id number] FRANKLIN Administration Levothyroxine Sodium 50 mcg 07/31/18 06:30 07/31/18 09:22 Synthroid PO 08/30/18 06:29 50 mcg DAILYBB FRANKLIN Administration Miscellaneous 1 ea 07/31/18 08:00 07/31/18 09:20 Order Awaiting Action N/A 08/30/18 07:59 Not Given QS FRANKLIN Potassium Chloride 20 meq 07/31/18 09:00 07/31/18 09:27 Klor-Con M20 PO 08/30/18 08:59 20 meq DAILY FRANKLIN Administration Trimethoprim/Sulfamethoxazole 1 tab 07/31/18 09:00 07/31/18 09:29 Septra 400/80mg Tab PO 08/10/18 08:59 1 tab BID FRANKLIN Administration Protocol NPO Date Last Intake of Fluids: 07/30/18 Time Last Intake of Fluids: 20:00 Date Last Intake of Solids: 07/30/18 Time Last Intake of Solids: 20:00 Past Medical History Medical History Diastolic CHF due to valvular disease hospitalization in March 2018 Third degree AV block S/p pacemaker placement Unilateral edema of lower extremity Peripheral neuropathy Hypothyroid HTN (hypertension) Depression (Chronic) Depression (Chronic) Hyperglycemia (Chronic) Hyponatremia (Chronic) Acute delirium (Resolved) Ulcer, venous stasis Exercise / Class Metabolic Activity III < 4 Walking/Shop/Light housework (Uses a rolling walker to get around) Past Family History Family History Other Diabetes Hypertension Past Surgical History Surgical History Status post total hysterectomy and bilateral salpingo-oophorectomy Status post aortic valve replacement History of permanent cardiac pacemaker placement Heart valve replaced Heart valve replaced (Chronic) History of appendectomy History of tonsillectomy Past Anesthesia History No Hx of Anesthesia Complications and No Family Hx of Anesthesia Complications History of PONV No Hx of Motion Sickness and History of PONV Social History Smoking Status: Never smoker Hx Alcohol Use: No Alcohol type: wine alcohol intake frequency: holidays/special occasions only Hx Substance Use: No substance use type: does not use Review of Systems Respiratory: no dyspnea Cardiovascular: no chest pain and no dyspnea on exertion Gastrointestinal: no nausea and no vomiting Physical Exam Vital Signs Last Vital Signs Temp 36.7 C 07/31/18 07:30 Pulse 60 07/31/18 07:30 Resp 24 07/31/18 07:30 BP 165/56 H 07/31/18 07:30 Pulse Ox 92 07/31/18 07:30 ENMT Mouth: no TMJ abnormality and no TMJ clicking Thyromental Distance: < 3.5 Finger Breadths Mallampati Class: II Neck normal visual inspection; neck extension not limited Respiratory Auscultation: lungs clear to auscultation bilaterally Cardiovascular Rate/Rhythm: regular rate and regular rhythm Heart Sounds: + murmur (II/) Musculoskeletal Spine: normal cervical ROM and no pain with cervical ROM Psychiatric Orientation: alert and oriented x 3 Testing Laboratory Results 07/30/18 22:59 07/30/18 22:59 07/30/18 07/30/18 07/31/18 22:59 23:12 04:55 PT 12.0 INR 1.2 H APTT 26.3 Urine Color Yellow Urine Appearance Clear Urine pH 6.5 Ur Specific Turner 1.019 Urine Protein Negative Urine Glucose (UA) Negative Urine Ketones Negative Urine Nitrite Negative Ur Leukocyte Esterase Negative Blood Type A Positive Antibody Screen NEGATIVE Electrocardiogram Date: 07/30/18 Poor data quality, interpretation may be adversely affected Ventricular-paced rhythm @ 61 bpm Abnormal ECG When compared with ECG of 27-MAR-2018 07:15, No significant change was found Chest X-Ray Date: 07/30/18 FINDINGS: An AP, portable, supine chest radiograph is compared to study dated 03/25/2018. The examination is degraded by portable technique and patient rotation. The patient is status post midline sternotomy and cardiac valve surgery. A 2-lead cardiac pacemaker is unchanged in position and partially obscures the left upper chest. The heart is mildly enlarged and there is atherosclerotic calcification of the thoracic aorta. There are right larger than left pleural effusions. Asymmetric opacification of the right hemithorax as compared to the left is likely related to a dependent layering pleural effusion given supine positioning. Biapical scarring is similar to previous. No pneumothorax is seen. The skeletal structures are osteopenic. The bony thorax is grossly intact. IMPRESSION: 1. Cardiomegaly and cardiac pacemaker. There is no radiographic evidence of con gestive failure 2. There are right larger than left pleural effusions. 3. Asymmetric opacification of the right hemithorax is compared to left likely represents a layering pleural effusion due to supine positioning. Correlate clinically for evidence of superimposed airspace consolidation. Echocardiogram Date: 01/14/18 Valvular Disease: + (ALF 1.2 cm2) 1. Small LV size with hyperdynamic systolic function. Cannot exclude wall motion abnormalities. Limited study per request. No LV hypertrophy 2. Bioprosthetic aortic valve with mildly elevated transvalvularvelocity and gradient 3. There is mild mitral regurgitation
--- NOTE | 2018-07-31 08:49 | Hospitalist Progress Note ---
Date of Service July 31, 2018 Assessment & Plan (1) Closed hip fracture: Cynthia is a 87 year old female with a closed left hip fracture Left hip fracture - consult Dr. Bernard, is medically risk optimized for surgery - Type and cross blood - Hold aspirin This pt does have some preoperative risk for surgery given her history of diastolic heart failure, mostly due to her aortic valve which has been replaced. She seems euvolemic on exam and given mortality associated with hip frature, re commend proceeding to surgical repair, In my opinion there is not a need for cardiology input as she is risk optimized at this point. CHF/ AVR / Complete Heart block /HTN - most recent echo from january 2018 showed small left ventricle with hyperdynamic systolic function - continue lasix - continue amlodipine - hold asa Lower extremity venous ulceration - appears well healed - continue bactrim, topical moisturizers Depression - continue mirtazapine and wellbutrin Hypothyroidism - continue synthroid DVT proph - hold off prior to surgery Code - DNR Subjective pt only with minor hip pain has had no recent chest pain or pressure or shortness of breath, can lay flat at night, is bothered by some lower extremity venous stasis changes, she has had decreased appetitie and variable stool production. Review of Systems Constitutional: + fatigue and + weakness Respiratory: no cough, no chest congestion and no dyspnea Cardiovascular: no chest pain and no dyspnea on exertion Gastrointestinal: no abdominal pain, no nausea and no vomiting Musculoskeletal: has tenderness to movement of left leg Integumentary: is with chronic discoloroation and scaley skin to LE, no pain Physical Exam Constitutional: well developed and average body habitus Eyes: no conjunctival abnormality and no scleral abnormality Neck: normal visual inspection and trachea midline Respiratory: normal respiratory effort; no respiratory distress Aus cultation: lungs clear to auscultation bilaterally Cardiovascular: Rate/Rhythm: regular rate Heart Sounds: + murmur Gastrointestinal (Abdomen): normal bowel sounds, soft, nontender, no hepatosplenomegaly Musculoskeletal: Hip: + limited ROM of hip and + joint line tenderness Results & Data Vital Signs (Past 12 Hours) Vital Signs Temp Pulse Pulse Pulse Resp BP BP 07/31/18 07:30 36.7 C 60 24 165/56 H 07/31/18 01:05 36.6 C 60 18 164/63 H 07/31/18 00:53 60 20 161/71 H 07/30/18 23:50 72 20 166/73 H 07/30/18 22:00 36.5 C 77 22 178/73 H Pulse Ox 07/31/18 07:30 92 07/31/18 01:05 90 07/31/18 00:53 99 07/30/18 23:50 95 07/30/18 22:00 90 (1) Closed hip fracture Encounter type: initial encounter Laterality: left Qualified Code(s): S72.002A - Fracture of unspecified part of neck of left femur, initial encounter for closed fracture
[2018-07-31] MEDS ORDERED: NUT TX GLUC INTOL LAC FREE SOY PO SCH (09:00)
[2018-07-31] MEDS: AMLODIPINE BESYLATE 5 MG TAB PO SCH (09:20)
[2018-07-31] MEDS: FUROSEMIDE 40 MG TAB PO SCH (09:22)
[2018-07-31] MEDS: BuPROPion SR 100 MG TABCR PO SCH (09:23)
--- NOTE | 2018-07-31 09:26 | Orthopedic Consultation ---
Date of Consultation July 31, 2018 Assessment & Plan (1) Closed hip fracture: I spoke with her and her sons who are at bedside this morning. I talked her about the risks, benefits, and alternatives to a hip hemiarthroplasty. They would like to proceed. There was some concerns about a cardiology consultation, however the family felt confident proceeding without a cardiology consultation if the anesthesiologist in the hospitalist felt safe to proceed. I did contact the bench repair technician personally and he said he would try to see her before the procedure. She is currently n.p.o. and I would like to take her for a left hip hemiarthroplasty later today. Consent was obtained at bedside. Present on Admission?: Yes History of Present Illness Reason for Consultation: Left femoral neck fracture Attending Physician: Balwinder Adkins MD History of Present Illness Pleasant 87-year-old female who lives at [facility]. She is a community ambulator with a walker. She was up yesterday and walking around her room when she fell onto her left hip. She had significant pain. She was brought to the emergency room and radiographs demonstrated a displaced left femoral neck fracture. She was admitted to the medical service and orthopedics was consulted to evaluate and treat. Allergies Allergy/AdvReac Type Severity Reaction Status Date / Time doxycycline Allergy Unknown RASH Verified 07/30/18 22:34 tetracycline Allergy Unknown Unknown Verified 07/30/18 22:34 cefdinir AdvReac Mild Gastrointestinal Verified 07/30/18 22:34 Upset Home Medications Home Medications Medication Instructions Recorded Confirmed Type PreserVision AREDS 2 tab PO QAM 03/25/18 07/30/18 History acetaminophen [Tylenol] 650 mg PO Q4 PRN MDD 3 GRAMS/03/25/18 07/30/18 History HOURS aspirin 81 mg PO HS 03/25/18 07/30/18 History bupropion HCl [Wellbutrin SR] 200 mg PO QAM 03/25/18 07/30/18 History docusate sodium [Colace] 100 mg PO BID 03/25/18 07/30/18 History levothyroxine 50 mcg PO DAILY 03/25/18 07/30/18 History mirtazapine 15 mg PO HS 03/25/18 07/30/18 History sennosides [senna] 8.6 mg PO .[id number] PRN 03/25/18 07/30/18 History amlodipine [Norvasc] 5 mg PO QAM #30 tab 04/02/18 07/30/18 Rx furosemide 40 mg PO QAM #30 tab 04/02/18 07/30/18 Rx carboxymethylcellulose sodium 0.5 1 drops OP BID PRN 06/22/18 07/30/18 History % eye drops potassium chloride ER 20 mEq 20 meq PO DAILY 06/22/18 07/30/18 History tablet,extended release(part/cryst) sulfamethoxazole 800 1 tab PO BID 14 Days #28 tab 07/22/18 07/30/18 Rx mg-trimethoprim 160 mg tablet mineral oil-hydrophil petrolat 1 applic TOPICAL BID PRN 07/30/18 07/30/18 History [Aquaphor] nut.tx.gluc.intol,lac-free,soy 1 ea PO BID 07/30/18 07/30/18 History [Glucerna] Patient History Medical History Diastolic CHF due to valvular disease hospitalization in March 2018 Third degree AV block S/p pacemaker placement Unilateral edema of lower extremity Peripheral neuropathy Hypothyroid HTN (hypertension) Depression (Chronic) Depression (Chronic) Hyperglycemia (Chronic) Hyponatremia (Chronic) Acute delirium (Resolved) Ulcer, venous stasis Surgical History Status post total hysterectomy and bilateral salpingo-oophorectomy Status post aortic valve replacement History of permanent cardiac pacemaker placement Heart valve replaced Heart valve replaced (Chronic) History of appendectomy History of tonsillectomy Family History Other Diabetes Hypertension Social History Preferred Language: Persian Communication Ability: Effective Communication Ability Comment: Pt hard of hearing Visual Impairment: No Limitations Hearing Ability: Hard of Hearing Water Supply Engineer Required: No Beliefs That Will Affect Care: None marital status: / Current Living Situation: Personal Care Facility [facility] current occupational status: retired Other Information That Helps Us Care for You: No Feels Safe at Home: Yes Safety Concerns: Feels Safe At This Time Smoking Status: Never smoker Second Hand Exposure: No Hx Alcohol Use: No Hx Substance Use: No Review of Systems Review of Systems: All systems reviewed & are unremarkable except as noted in HPI & below Physical Exam Musculoskeletal: On physical examination of the left hip, there is ecchymosis laterally. She has significant pain in her left hip with log roll of the left leg. Her left leg is slightly shortened and externally rotated. Results & Data Vital Signs (Past 12 Hours) Vital Signs Temp Pulse Pulse Pulse Resp BP BP 07/31/18 07:30 36.7 C 60 24 165/56 H 07/31/18 01:05 36.6 C 60 18 164/63 H 07/31/18 00:53 60 20 161/71 H 07/30/18 23:50 72 20 166/73 H 07/30/18 22:00 36.5 C 77 22 178/73 H Pulse Ox 07/31/18 07:30 92 07/31/18 01:05 90 07/31/18 00:53 99 07/30/18 23:50 95 07/30/18 22:00 90 Laboratory Results H & H 07/30/18 Range/Units 22:59 Hgb 12.2 (12.0-16.0) g/dL Hct 35.6 L (37-47) % Coagulation 07/30/18 Range/Units 22:59 INR 1.2 H (0.9-1.1) Diagnostic Findings X-rays of the left hip and pelvis do show a displaced left femoral neck fracture. (1) Closed hip fracture Encounter type: initial encounter Laterality: left Qualified Code(s): S72.002A - Fracture of unspecified part of neck of left femur, initial encounter for closed fracture
[2018-07-31] MEDS: POTASSIUM CHLORIDE 20 MEQ TABCR PO SCH (09:27)
[2018-07-31] MEDS: DOCUSATE SODIUM 100 MG CAP PO SCH ×2 (09:28→21:02)
[2018-07-31] MEDS: SULFA/TRIMETH 400/80MG TAB PO SCH ×2 (09:29→21:04)
[2018-07-31] MEDS ORDERED: ePHEDrine sulfate 50 MG/ML AMP IV PRN (12:03)
[2018-07-31] MEDS ORDERED: PHENYLEPHRINE 100MCG/ML 5ML SYR IV PRN (12:03)
[2018-07-31] MEDS ORDERED: fentaNYL citrate 100 MCG/2 ML VIAL IV PRN (12:03)
[2018-07-31] MEDS ORDERED: HYDROmorphone INJ 1 MG/ML SYRINGE IV PRN (12:03)
[2018-07-31] MEDS ORDERED: ATROPINE SULFATE 0.1 MG/ML 10ML SYR IV PRN (12:03)
[2018-07-31] MEDS ORDERED: fentaNYL citrate 100 MCG/2 ML VIAL ONE (12:27)
[2018-07-31] MEDS ORDERED: SUCCINYLCHOLINE CHLORIDE 20 MG/ML 10 ML VIAL ONE (12:28)
[2018-07-31] MEDS ORDERED: LIDOCAINE HCL 2% 2 ML VIAL/AMP(20MG/ML) INFIL ONE (12:28)
[2018-07-31] MEDS ORDERED: ETOMIDATE 2 MG/ML 20 ML VIAL IV ONE (12:28)
[2018-07-31] MEDS ORDERED: PROPOFOL IV EMULSION 10 MG/ML 20 ML VIAL IV ONE (12:28)
--- NOTE | 2018-07-31 12:37 | History & Physical Bridge Note ---
Date of Service July 31, 2018 History & Physical Bridge Note I have examined the patient, reviewed the History & Physical and in the interval since the performance of the History & Physical I have noted the following changes of clinical significance: no changes noted
[2018-07-31] MEDS ORDERED: POVIDONE-IODINE OP SOLN 30 ML BTL ONE (13:27)
[2018-07-31] MEDS ORDERED: BUPIVACAINE/EPINEPHRINE 0.5% MPF 1:200,000 30 ML VIAL ONE (13:27)
[2018-07-31] MEDS ORDERED: CEFAZOLIN 250 MG/ML 1 GM VIAL ONE (14:07)
[2018-07-31] MEDS ORDERED: ONDANSETRON INJ 2 MG/ML 2 ML VIAL ONE (14:07)
[2018-07-31] MEDS ORDERED: WATER, STERILE FOR INJ 10 ML VIAL ONE (14:07)
[2018-07-31] MEDS ORDERED: PHENYLEPHRINE HCL 10 MG/ML VIAL ONE (14:07)
--- NOTE | 2018-07-31 15:00 | Fluoroscopy Report ---
FL hip LT 1V CLINICAL HISTORY: LEFT ANTERIOR HIP COMPARISON STUDY: 07/30/2018 FLUOROSCOPY TIME: 16 seconds. NUMBER OF FLUOROSCOPIC IMAGES: 2 FINDINGS: 2 intraoperative fluoroscopic spot images reveal postsurgical changes of a bipolar left hip arthroplasty. IMPRESSION: Intraoperative for scopic spot images demonstrating a bipolar left hip arthroplasty. No evidence of dislocation. Electronically signed by: Hussein Torres M.D. 07/31/2018 2:58 PM
--- NOTE | 2018-07-31 15:26 | Operative Report ---
Post Operative Report Pre & Post Diagnosis Operation Date: 07/31/18 13:00 Pre-Op Diagnosis: Left Hip Fracture Post-Op Diagnosis: Left Hip Fracture Procedure Operation Date: 07/31/18 13:00 Actual Procedures p Bipolar Hip Arthroplasty Anterior Approach(Left) - Isaías Bernard DO Surgeon Isaías Bernard DO Cloth Boil Off Machine Operator None Estimated Blood Loss 150 Findings Consistent with Post-Op Diagnosis Specimens Left femoral head Complications none Disposition Disposition: Recovery Room Indications Cynthia is a pleasant 87-year-old female who fell yesterday sustaining a left femoral neck fracture. She was admitted to [facility]. After discussions with her and her family we elected to proceed with an anterior cemented left hip hemiarthroplasty. Description of Procedure Implants used [employer] Taperloc total hip arthroplasty system with a size 7 echo fracture stem, a 44 bipolar cup with a 28 mm head and a -3 neck The patient was brought down from her hospital room to the preoperative holding area. The operative extremity was identified and signed. She was then given an IV antibiotic and taken back to the operating room. She was laid on the table in supine position and put under general anesthesia. The left leg was then brought out to a Purist leg positioner. The left hip was then prepped and draped in sterile fashion. A timeout was done. The patient in the operative extremity was properly identified. An anterior approach was used. Dissection was taken down through the fascia and the tensor muscle was retracted laterally and the rectus was retracted medially. The capsule was then incised and tagged for later repair. The femoral neck was then resected and the head was removed. The acetabulum was then exposed. Time was spent doing a circumferential labral release. Several different femoral head trials were used and a size 44 seem to be the best fit. The proximal femur was then exposed. Sequential broaching of the femur was done up to a size 9 broach. A 44 bipolar cup with a -3 neck was then trialed. The hip was then reduced. Fluoroscopic images showed anatomic alignment of the left hip. The broach was then removed. A final size 7 standard offset echo fracture stem was then cemented in place with Palacos G cement. A 44 mm cup with a 28 mm head and a -3 neck was then impacted onto the femoral stem once cement had dried. The hip was then reduced. Final fluoroscopic images showed anatomic reduction. The wound was then irrigated. Surrounding soft tissues were injected with half percent Marcaine with epinephrine. The capsule was then closed with #1 Vicryl suture. A 3-minute Betadine lavage was then performed. The fascia was then closed with #1 PDS suture. The deep tissue was closed with 2-0 Vicryl and skin was closed with 3-0 Vicryl and natalie. A Bridget VAC dressing was placed. She was then transferred to a hospital bed and extubated. She was then taken to the postanesthesia care unit in stable condition. She tolerated the procedure well. I attest to the content of the Intraoperative Record and any orders documented therein. Any exceptions are noted below.
--- NOTE | 2018-07-31 16:20 | Anesthesiology Progress Note ---
Date of Service July 31, 2018 Anesthesia Post Procedure Vital Signs Vital Signs: Temp Pulse Pulse Pulse Resp BP BP 07/31/18 16:00 36.4 C L 60 16 138/56 L 07/31/18 15:50 36.4 C L 60 16 131/54 L 07/31/18 15:40 60 16 127/79 07/31/18 15:30 60 16 118/50 L 07/31/18 15:20 63 16 127/54 L 07/31/18 15:13 36.4 C L 61 16 142/54 H 07/31/18 07:30 36.7 C 60 24 07/31/18 01:05 36.6 C 60 18 07/31/18 00:53 60 20 161/71 H 07/30/18 23:50 72 20 07/30/18 22:00 36.5 C 77 22 178/73 H BP Pulse Ox 07/31/18 16:00 93 07/31/18 15:50 94 07/31/18 15:40 92 07/31/18 15:30 91 07/31/18 15:20 92 07/31/18 15:13 92 07/31/18 07:30 165/56 H 92 07/31/18 01:05 164/63 H 90 07/31/18 00:53 99 07/30/18 23:50 166/73 H 95 07/30/18 22:00 90 Pain Intensity Left Upper Leg: Pain Intensity: 1 Transfer of Care Handoff Completed per policy Notes Mental Status: alert / awake / arousable Patient Amnestic to Procedure: Yes Nausea / Vomiting: adequately controlled Pain: adequately controlled Airway Patency, RR, SpO2: stable & adequate BP & HR: stable & adequate Hydration State: stable & adequate Anesthetic Complications: no major complications apparent Notes: Awake, doing well, no complaints. VSS
--- NOTE | 2018-07-31 16:25 | XRay Report ---
XR hip LT min 2V CLINICAL HISTORY: Post-Operative implant position COMPARISON: 07/30/2018 DISCUSSION: There are postsurgical changes of a bipolar left hip arthroplasty. There is no dislocatio n. The femoral component appears well seated. There are overlying skin natalie present. There is gas within soft tissues consistent with recent surgery IMPRESSION: Bipolar left hip arthroplasty. No evidence of dislocation Electronically signed by: Hussein Torres M.D. 07/31/2018 4:24 PM
[2018-07-31] MEDS ORDERED: HYDROmorphone INJ 0.5 MG/0.5 ML SYR IV PRN (16:33)
[2018-07-31] MEDS: DOCUSATE SODIUM/SENNA 50/8.6MG TAB PO SCH (21:03)
[2018-07-31] MEDS: MIRTAZAPINE TAB 15 MG TAB PO SCH (21:03)
[2018-07-31] MEDS: ASPIRIN 81 MG ECTAB PO SCH (21:06)
[2018-07-31] MEDS: CEFAZOLIN 1000MG 1,000 MG/7.5 ML SYR IV SCH (22:03)
[2018-07-31] MEDS: ACETAMINOPHEN 325 MG TAB PO PRN (23:30)
[2018-08-01] MEDS: CEFAZOLIN 1000MG 1,000 MG/7.5 ML SYR IV SCH (05:22)
[2018-08-01] MEDS ORDERED: SODIUM CHLORIDE 0.9% 250 ML IV PRN (07:18)
[2018-08-01 07:37] LABS: Basophils # (auto) 0.04 K/uL (0-0.2); Basophils % (auto) 0.4 %; Eosinophils # (auto) 0.78 K/uL (0-0.5); Eosinophils % (auto) 8.5 %; Hematocrit (blood only) 30.4 % (37-47); Hemoglobin 10.2 g/dL (12.0-16.0); Immature Granulocytes # (auto) 0.03 K/uL (0.00-0.02); Immature Granulocytes % (auto) 0.3 %; Lymphocytes # (auto) 0.95 K/uL (1.2-3.4); Lymphocytes % (auto) 10.3 %; Mean Platelet Volume 9.9 fL (7.4-10.4); Monocytes # (auto) 0.76 K/uL (0.11-0.59); Monocytes % (auto) 8.2 %; Neutrophils # (auto) 6.67 K/uL (1.4-6.5); Neutrophils % (auto) 72.3 %; Platelet Count 153 K/uL (130-400); RDW Coefficient of Variation 14.7 % (11.5-14.5); RDW Standard Deviation 42.1 fL (36.4-46.3); White Blood Count 9.23 K/uL (4.8-10.8)
[2018-08-01 07:41] LABS: Mean Corpuscular Hgb Conc 33.6 g/dL (32-36)
[2018-08-01 07:51] LABS: BUN Creatinine Ratio 14.3 (10-20); Creatinine Clr Calc Pharmacy 23.8 ml/min; Est GFR (African American) 45.4; Est GFR (Non-African American) 39.1; Potassium 4.1 mmol/L (3.5-5.1)
[2018-08-01] MEDS ORDERED: FUROSEMIDE 20 MG in SYRINGE 0 ML IV SCH (08:00)
--- NOTE | 2018-08-01 08:15 | Orthopedic Progress Note ---
Date of Service August 01, 2018 Assessment & Plan (1) Closed hip fracture: Overall her hip seems to be doing fairly well but she is very confused. Her family should be by today to see her and hopefully this will help some of her symptoms. Physical therapy has been ordered to get her up into a chair with possible ambulation if she is able to tolerate it. She can be weightbearing as tolerated. She is going to be on aspirin 81 mg twice a day for 6 weeks. I am using this instead of Lovenox because of her stage III kidney disease. She is orthopedically stable for discharge when medically ready. The Bridget VAC dressing on her hip will come off at 7 days. She will follow-up in our office in 2 to 3 weeks. Our office phone number is [phone]. If you have any questions regarding her care you can call me personally on my cell phone at [phone]. Orthopedic discharge instructions were placed in the discharge report. Present on Admission?: Yes Odin Marie was seen and examined at bedside this morning. Unfortunately she has been confused since the surgery. She did not know who I was when I came into the room and she did not know that she had her hip replaced. She does not seem to be in much pain. She had no acute events overnight. Physical Exam Musculoskeletal: On physical examination of the left hip, the Bridget VAC dressings to suction. Her leg lengths are equal. She was unable to cooperate with a neurologic exam. Results & Data Vital Signs (Past 12 Hours) Vital Signs Temp Pulse Pulse Resp BP BP Pulse Ox 08/01/18 07:49 36.3 C L 60 14 149/61 H 93 08/01/18 04:10 97 08/01/18 04:08 36.6 C 64 16 133/57 L 99 08/01/18 04:00 07/31/18 23:44 36.7 C 60 16 147/61 H 97 07/31/18 23:15 Pulse Ox 08/01/18 07:49 08/01/18 04:10 08/01/18 04:08 08/01/18 04:00 92 07/31/18 23:44 07/31/18 23:15 96 Laboratory Results H & H 07/30/18 08/01/18 08/01/18 Range/Units 22:59 05:29 07:19 Hgb 12.2 10.2 L (12.0-16.0) g/dL Hct 35.6 L 30.4 L (37-47) % Coagulation 07/30/18 Range/Units 22:59 INR 1.2 H (0.9-1.1) Diagnostic Findings Postoperative x-rays of the left hip show the prosthesis to be in anatomic alignment without any evidence of fracture, dislocation, or loosening. (1) Closed hip fracture Encounter type: initial encounter Laterality: left Qualified Code(s): S72.002A - Fracture of unspecified part of neck of left femur, initial encounter for closed fracture
[2018-08-01] MEDS: ASPIRIN 81 MG ECTAB PO SCH ×2 (09:16→20:26)
[2018-08-01] MEDS: FUROSEMIDE 40 MG TAB PO SCH (09:16)
[2018-08-01] MEDS: SULFA/TRIMETH 400/80MG TAB PO SCH ×2 (09:16→20:27)
[2018-08-01] MEDS: AMLODIPINE BESYLATE 5 MG TAB PO SCH (09:17)
[2018-08-01] MEDS: BuPROPion SR 100 MG TABCR PO SCH (09:17)
[2018-08-01] MEDS: DOCUSATE SODIUM 100 MG CAP PO SCH ×2 (09:17→20:27)
[2018-08-01] MEDS: POTASSIUM CHLORIDE 20 MEQ TABCR PO SCH (09:17)
[2018-08-01] MEDS: LEVOTHYROXINE SODIUM 50 MCG TABLET PO SCH (09:19)
[2018-08-01] MEDS: PRESERVISION AREDS PO SCH (11:26)
--- NOTE | 2018-08-01 13:37 | Hospitalist Progress Note ---
Date of Service August 01, 2018 Assessment & Plan (1) Closed hip fracture: Cynthia is a 87 year old female with a closed left hip fracture Left hip fracture - consult Dr. Bernard, surgical repair 07/31 - Type and cross blood HFpEF/ AVR / Complete Heart block /HTN - most recent echo from january 2018 showed small left ventricle with hyperdynamic systolic function - continue lasix - continue amlodipine -asa Lower extremity venous ulceration - appears well healed, topical moisturizers Depression mirtazapine and wellbutrin Hypothyroidism - continue synthroid DVT proph -aspirin bid chosen by surgery Code - DNR Subjective Vision no complaints or problems at the current time her pain is well controlled she has no shortness of breath her hemoglobin did drop somewhat but not yet in transfusion range for acute blood loss anemia postoperatively Review of Systems Review of Systems: ROS: Patient is fairly thin she is in no distress only with minor pain No double vision blurry vision No problems with speech or swallowing No palpitations, chest pain or pressure No Wheezing or breathing issues No abdominal pain nausea vomiting diarrhea changes in appetite or weight No burning urine urine frequency or changes in color Has some focal joint pain associate with postoperative state which is considered acceptable No skin rashes or oral lesions No unusual bruising or bleeding No focused back pain or numbness or loss of strength No changes in memory or confusion Physical Exam Physical Exam: The patient appeared thin Vital signs as documented. Head exam is unremarkable. normocephalic, atraumatic Neck is without jugular venous distension, thyromegaly, or lymphademopathy Lungs are clear to auscultation and percussion. Cardiac exam reveals Rhythm is regular. But tachycardic at times his maker site is nontender Abdominal exam reveals normal bowel sounds, no masses, no organomegaly Extremities are nonedematous and both pedal pulses are present Neurologic exam is A&Ox3, no focal deficits, strength is equal bilateral Psychologically seems neither anxious or depressed Skin is warm / Dry Results & Data Vital Signs (Past 12 Hours) Vital Signs Temp Pulse Pulse Resp BP Pulse Ox Pulse Ox 08/01/18 07:49 36.3 C L 60 14 149/61 H 93 08/01/18 04:10 97 08/01/18 04:08 36.6 C 64 16 133/57 L 99 08/01/18 04:00 92 (1) Closed hip fracture Encounter type: initial encounter Laterality: left Qualified Code(s): S72.002A - Fracture of unspecified part of neck of left femur, initial encounter for closed fracture
[2018-08-01] MEDS: SODIUM CHLORIDE 0.9% 1000ML 1,000 ML IV SCH (15:43)
[2018-08-01] MEDS: DOCUSATE SODIUM/SENNA 50/8.6MG TAB PO SCH (20:26)
[2018-08-01] MEDS: MIRTAZAPINE TAB 15 MG TAB PO SCH (20:26)
[2018-08-01] MEDS: ACETAMINOPHEN 325 MG TAB PO PRN (23:46)
[2018-08-02] MEDS: LEVOTHYROXINE SODIUM 50 MCG TABLET PO SCH (05:49)
[2018-08-02 06:54] LABS: Creatinine Clr Calc Pharmacy 21.8 ml/min; Est GFR (African American) 40.9; Est GFR (Non-African American) 35.3
[2018-08-02 08:49] LABS: Hemoglobin 9.4 g/dL (12.0-16.0); Mean Corpuscular Hgb Conc 33.6 g/dL (32-36); Mean Corpuscular Volume 79.8 fL (80-100); Mean Platelet Volume 10.1 fL (7.4-10.4); Platelet Count 161 K/uL (130-400); RDW Coefficient of Variation 14.9 % (11.5-14.5); RDW Standard Deviation 42.5 fL (36.4-46.3); Red Blood Count 3.51 M/uL (4.2-5.4); White Blood Count 10.11 K/uL (4.8-10.8)
[2018-08-02 08:58] LABS: BUN Creatinine Ratio 16.6 (10-20); Calcium 8.4 mg/dl (8.5-10.1); Creatinine Clr Calc Pharmacy 22.8 ml/min; Est GFR (African American) 43.2; Est GFR (Non-African American) 37.3; Potassium 4.1 mmol/L (3.5-5.1)
[2018-08-02] MEDS: PRESERVISION AREDS PO SCH (09:09)
[2018-08-02] MEDS: POTASSIUM CHLORIDE 20 MEQ TABCR PO SCH (09:09)
[2018-08-02] MEDS: SULFA/TRIMETH 400/80MG TAB PO SCH ×2 (09:10→20:41)
[2018-08-02] MEDS: ASPIRIN 81 MG ECTAB PO SCH ×2 (09:10→20:40)
[2018-08-02] MEDS: FUROSEMIDE 40 MG TAB PO SCH (09:10)
[2018-08-02] MEDS: AMLODIPINE BESYLATE 5 MG TAB PO SCH (09:10)
[2018-08-02] MEDS: BuPROPion SR 100 MG TABCR PO SCH (09:11)
[2018-08-02] MEDS: DOCUSATE SODIUM 100 MG CAP PO SCH ×2 (09:11→20:39)
--- NOTE | 2018-08-02 10:51 | Cardiology Consultation ---
Date of Consultation August 02, 2018 Assessment & Plan (1) Closed hip fracture: Status post left hip arthroplasty 07/31/18 2. Status post bioprosthetic AVR 2008 - valve functioning well on examination 3. Diastolic CHF - well compensated and euvolemic currently 4. Heart block status post pacemaker implantation 5. Hypertension - BP adequately controlled this admission 6. Venous insufficiency Patient is currently stable and asymptomatic from a cardiovascular standpoint. She denies angina. Her volume status appears favorable on her current dose of diuretic therapy. She is status post bioprosthetic AVR and has no symptoms referable to aortic valve disease at this time. Her blood pressure is adequately controlled. Recommend continuing current medical therapy including aspirin, Lasix/potassium, and amlodipine. Follow-up as an outpatient as previously scheduled with Dr. Vargas and with Dr. Ricketts for pacemaker check. Supervising Physician Co-Signing Physician Notes Patient seen and examined, reviewed with Radha. Agree with above consults. History of Present Illness History of Present Illness Ms. Pappas is an 87-year-old female with a past medical history significant for hypertension, bioprosthetic aortic valve replacement in 2008, hx of diastolic CHF, hypothyroidism, hyperglycemia, heart block status post pacemaker implantation, and chronic venous insufficiency who was admitted on 07/30/2018 with a left hip fracture. She sustained a mechanical fall at her residence at [facility] and was brought to the ED due to left hip pain. She underwent left hip arthroplasty on 07/31/[address] Bernard. The procedure was without complications. The patient is currently being seen in her room in [facility]. Her 2 sons are present in the room. She states that she is feeling well. She denies any significant hip pain. She has been doing physical therapy and was able to ambulate a short distance this morning. She denies any chest pain or shortness of breath. She further denies orthopnea, PND, or edema. She denies lightheadedness, syncope, or presyncope. She denies abnormal bleeding such as melena, hematochezia, or hematuria. As noted in HPI. All other ROS are reviewed and otherwise negative at this time. Allergies Allergy/AdvReac Type Severity Reaction Status Date / Time doxycycline Allergy Unknown RASH Verified 07/30/18 22:34 tetracycline Allergy Unknown Unknown Verified 07/30/18 22:34 cefdinir AdvReac Mild Gastrointestinal Verified 07/30/18 22:34 Upset Home Medications Home Medications Medication Instructions Recorded Confirmed Type PreserVision AREDS 2 tab PO QAM 03/25/18 07/30/18 History acetaminophen [Tylenol] 650 mg PO Q4 PRN MDD 3 GRAMS/03/25/18 07/30/18 History HOURS aspirin 81 mg PO HS 03/25/18 07/30/18 History bupropion HCl [Wellbutrin SR] 200 mg PO QAM 03/25/18 07/30/18 History docusate sodium [Colace] 100 mg PO BID 03/25/18 07/30/18 History levothyroxine 50 mcg PO DAILY 03/25/18 07/30/18 History mirtazapine 15 mg PO HS 03/25/18 07/30/18 History sennosides [senna] 8.6 mg PO .[id number] PRN 03/25/18 07/30/18 History amlodipine [Norvasc] 5 mg PO QAM #30 tab 04/02/18 07/30/18 Rx furosemide 40 mg PO QAM #30 tab 04/02/18 07/30/18 Rx carboxymethylcellulose sodium 0.5 1 drops OP BID PRN 06/22/18 07/30/18 History % eye drops potassium chloride ER 20 mEq 20 meq PO DAILY 06/22/18 07/30/18 History tablet,extended release(part/cryst) sulfamethoxazole 800 1 tab PO BID 14 Days #28 tab 07/22/18 07/30/18 Rx mg-trimethoprim 160 mg tablet mineral oil-hydrophil petrolat 1 applic TOPICAL BID PRN 07/30/18 07/30/18 History [Aquaphor] nut.tx.gluc.intol,lac-free,soy 1 ea PO BID 07/30/18 07/30/18 History [Glucerna] Patient History Medical History Diastolic CHF due to valvular disease hospitalization in March 2018 Third degree AV block S/p pacemaker placement Unilateral edema of lower extremity Peripheral neuropathy Hypothyroid HTN (hypertension) Depression (Chronic) Depression (Chronic) Hyperglycemia (Chronic) Hyponatremia (Chronic) Acute delirium (Resolved) Ulcer, venous stasis Surgical History Status post total hysterectomy and bilateral salpingo-oophorectomy Status post aortic valve replacement History of permanent cardiac pacemaker placement Heart valve replaced Heart valve replaced (Chronic) History of appendectomy History of tonsillectomy Family History Other Diabetes Hypertension Social History Preferred Language: [place]er Communication Ability: Effective Communication Ability Comment: Pt hard of hearing Visual Impairment: No Limitations Hearing Ability: Hard of Hearing Area Forester Required: No Beliefs That Will Affect Care: None marital status: / Current Living Situation: Personal Care Facility Current Living Situation Comment: [facility] current occupational status: retired Other Information That Helps Us Care for You: No Feels Safe at Home: Yes Safety Concerns: Feels Safe At This Time Smoking Status: Never smoker Second Hand Exposure: No Hx Alcohol Use: No Hx Substance Use: No Physical Exam Physical Exam: Constitutional: Alert, oriented, in no acute distress HEENT: Head is atraumatic and normocephalic. EOMs intact. Sclera anicteric. Face is symmetric. No perioral cyanosis. Mucous membranes moist. Neck: Supple, no JVD Pulmonary: Normal respiratory effort, clear to auscultation bilaterally Cardiac: Regular rate and rhythm, normal S1 and crisp S2, no gallops, no rubs, 2/6 basal systolic murmur Extremities: No clubbing, cyanosis, or significant edema. Pulses intact Abdomen: Normal bowel sounds, soft, non-tender, no abdominal mass palpated Skin: Ecchymosis on hands and forearms. Venous stasis skin changes of bilateral lower extremities. No rash Neurological: Oriented to person, place, and time Results & Data Vital Signs (Past 12 Hours) Vital Signs Temp Pulse Resp BP Pulse Ox Pulse Ox 08/02/18 07:00 36.4 C L 62 18 149/70 H 98 08/01/18 23:38 36.6 C 60 19 127/56 L 95 08/01/18 23:15 95 Laboratory Results Laboratory Results WBC 10.11 K/uL (4.8-10.8) 08/02/18 06:12 RBC 3.51 M/uL (4.2-5.4) L 08/02/18 06:12 Hgb 9.4 g/dL (12.0-16.0) L 08/02/18 06:12 Hct 28.0 % (37-47) L 08/02/18 06:12 MCV 79.8 fL (80-100) L 08/02/18 06:12 MCH 26.8 pg (25-34) 08/02/18 06:12 MCHC 33.6 g/dL (32-36) 08/02/18 06:12 RDW Std Deviation 42.5 fL (36.4-46.3) 08/02/18 06:12 RDW Coeff of Kem 14.9 % (11.5-14.5) H 08/02/18 06:12 Plt Count 161 K/uL (130-400) 08/02/18 06:12 MPV 10.1 fL (7.4-10.4) 08/02/18 06:12 Immature Gran % (Auto) 0.3 % 08/01/18 07:19 Neut % (Auto) 72.3 % 08/01/18 07:19 Lymph % (Auto) 10.3 % 08/01/18 07:19 Elk % (Auto) 8.2 % 08/01/18 07:19 Eos % (Auto) 8.5 % 08/01/18 07:19 Baso % (Auto) 0.4 % 08/01/18 07:19 Immature Gran # (Auto) 0.03 K/uL (0.00-0.02) H 08/01/18 07:19 Neut # (Auto) 6.67 K/uL (1.4-6.5) H 08/01/18 07:19 Lymph # (Auto) 0.95 K/uL (1.2-3.4) L 08/01/18 07:19 Elk # (Auto) 0.76 K/uL (0.11-0.59) H 08/01/18 07:19 Eos # (Auto) 0.78 K/uL (0-0.5) H 08/01/18 07:19 Baso # (Auto) 0.04 K/uL (0-0.2) 08/01/18 07:19 PT 12.0 Seconds (9.0-12.0) 07/30/18 22:59 INR 1.2 (0.9-1.1) H 07/30/18 22:59 APTT 26.3 Seconds (21.0-31.0) 07/30/18 22:59 PTT Ratio 1.0 07/30/18 22:59 Sodium 132 mmol/L (136-145) L 08/02/18 06:12 Potassium 4.1 mmol/L (3.5-5.1) 08/02/18 06:12 Chloride 99 mmol/L (98-107) 08/02/18 06:12 Carbon Dioxide 24 mmol/L (21-32) 08/02/18 06:12 9.0 (3-11) 08/02/18 06:12 BUN 21 mg/dl (7-18) H 08/02/18 06:12 1.28 mg/dl (0.6-1.2) H 08/02/18 06:12 Est Cr Clr Drug Dosing 22.8 ml/min 08/02/18 06:12 Est GFR ( Amer) 43.2 08/02/18 06:12 Est GFR (Non-Af Amer) 37.3 08/02/18 06:12 16.6 (10-20) 08/02/18 06:12 Glucose 110 mg/dl (70-99) H 08/02/18 06:12 Calcium 8.4 mg/dl (8.5-10.1) L 08/02/18 06:12 0.4 mg/dl (0.2-1) 07/30/18 22:59 AST 18 U/L (15-37) 07/30/18 22:59 ALT 24 U/L (12-78) 07/30/18 22:59 146 U/L (45-117) H 07/30/18 22:59 7.4 gm/dl (6.4-8.2) 07/30/18 22:59 3.6 gm/dl (3.4-5.0) 07/30/18 22:59 3.8 gm/dl (2.5-4.0) 07/30/18 22:59 0.9 (0.9-2) 07/30/18 22:59 25-OH Vitamin D Total 12.7 ng/ml (30-100) L 07/31/18 07:08 Yellow 07/31/18 04:55 Clear (Clear) 07/31/18 04:55 6.5 (4.5-7.5) 07/31/18 04:55 Ur Specific [place] 1.019 (1.000-1.030) 07/31/18 04:55 Negative (Negative) 07/31/18 04:55 Negative (Negative) 07/31/18 04:55 Negative (Negative) 07/31/18 04:55 Negative (Negative) 07/31/18 04:55 Negative (Negative) 07/31/18 04:55 Negative (Negative) 07/31/18 04:55 Negative (Negative) 07/31/18 04:55 Ur Leukocyte Esterase Negative (Negative) 07/31/18 04:55 Blood Type A Positive 07/30/18 23:12 Antibody Screen NEGATIVE 07/30/18 23:12 Crossmatch See Detail 07/30/18 23:12 Diagnostic Findings ECG 07/30/18: Ventricular-paced rhythm (1) Closed hip fracture Encounter type: initial encounter Laterality: left Qualified Code(s): S72.002A - Fracture of unspecified part of neck of left femur, initial encounter for closed fracture
--- NOTE | 2018-08-02 14:00 | Hospitalist Progress Note ---
Date of Service August 02, 2018 Assessment & Plan (1) Closed hip fracture: - S/p bipolar left hip arthroplasty on 07/31/18, POD#2. - Weight bearing as tolerated. - PT/OT recommending SNF -- plan for placement at [facility]. - DVT ppx: Aspirin 81 mg BID for 6 weeks. - Bridget VAC to be removed in 7 days (08/08/18); will need f/u in the office in 2-3 weeks. (2) Acute anemia: - Hgb trending down, was 9.4 this morning. - Will monitor qAM; likely related to intra op blood losses. (3) Diastolic CHF due to valvular disease: - Most recent TTE in Dec 2017 showed aortic valve with mildly elevated transvalvular velocity and gradient. - Monitor net I/Os and daily weights. - Continue Lasix 40 mg qAM as prescribed. (4) Status post aortic valve replacement: - Bioprosthetic AVR in 2008; well functioning per last TTE. (5) History of permanent cardiac pacemaker placement: - Follows with cardiology; no indication for interrogation as inpatient. (6) Third degree AV block: - Follows with cardiology; s/p pacemaker implantation. (7) HTN (hypertension): - Continue Amlodipine and Lasix as prescribed. (8) Hypothyroid: - Continue Synthroid as prescribed. - Most recent TSH was 4 in Dec 2017. (9) Venous ulcer: - Now healing -- continue topical wound care. - Started Bactrim on 07/22, will need to complete 28 day course. (10) Depression: - Continue Welbutrin and Remeron as prescribed. (11) CKD (chronic kidney disease) stage 3, GFR 30-59 ml/min: - Renally dose all meds. (12) Vitamin D deficiency: - Start Vit D 1,000 units qAM. - Level was 12 on 07/31/18. (13) DVT prophylaxis: - Aspirin 81 mg BID. Dispo: Discharge to rehab pending placement. Supervising Physician Co-Signing Physician Notes PA Supervision Note: I did not personally see or examine the patient today, but I verified all daly points of NORA White's assessment and plan with the following exceptions/additions: None Subjective Pt. is doing well. Denies left hip pain. She was able to sit in chair and eat breakfast this morning. Is having regular BMs, denies urinary retention. PT/OT -- plan for rehab placement. Review of Systems Review of Systems: All systems reviewed & are unremarkable except as noted in HPI & below Constitutional: no fever, no chills, no fatigue and no weakness Respiratory: no cough, no dyspnea, no dyspnea on exertion and no wheezing Cardiovascular: no chest pain, no palpitations and no edema Gastrointestinal: no abdominal pain, no nausea and no constipation Genitourinary: no difficulty urinating Musculoskeletal: no back pain and no joint pain Integumentary: no non-healing lesions Allergy / Immunological: no rash Physical Exam Physical Exam: General: Resting comfortably in no apparent distress HEENT: NC/AT; PERRLA with EOMI; [place] conjunctiva, MMM. No erythema of posterior pharynx Neck: Supple and nontender Cardiac: RRR w/o murmurs, gallops or rubs Lungs: CTA bilaterally; No rhonchi, wheezing, or rales Abdomen: Bowel normoactive X 4; Nontender to palpation Extremities: Warm. No edema present. Drain in place over left hip. Neuro: No focal weakness Skin: No rash Results & Data Vital Signs (Past 12 Hours) Vital Signs Temp Pulse Resp BP Pulse Ox 08/02/18 07:00 36.4 C L 62 18 149/70 H 98 Laboratory Results 08/02/18 08/02/18 08/02/18 Range/Units 06:12 06:12 06:07 WBC 10.11 (4.8-10.8) K/uL RBC 3.51 L (4.2-5.4) M/uL Hgb 9.4 L (12.0-16.0) g/dL Hct 28.0 L (37-47) % MCV 79.8 L (80-100) fL MCH 26.8 (25-34) pg MCHC 33.6 (32-36) g/dL RDW Std Deviation 42.5 (36.4-46.3) fL RDW Coeff of Kem 14.9 H (11.5-14.5) % Plt Count 161 (130-400) K/uL MPV 10.1 (7.4-10.4) fL Sodium 132 L (136-145) mmol/L Potassium 4.1 (3.5-5.1) mmol/L Chloride 99 (98-107) mmol/L Carbon Dioxide 24 (21-32) mmol/L Anion Gap 9.0 (3-11) BUN 21 H (7-18) mg/dl Creatinine 1.28 H 1.34 H (0.6-1.2) mg/dl Est Cr Clr Drug Dosing 22.8 21.8 ml/min Est GFR ( Amer) 43.2 40.9 Est GFR (Non-Af Amer) 37.3 35.3 BUN/Creatinine Ratio 16.6 (10-20) Glucose 110 H (70-99) mg/dl Calcium 8.4 L (8.5-10.1) mg/dl (1) Closed hip fracture Encounter type: initial encounter Laterality: left Qualified Code(s): S72.002A - Fracture of unspecified part of neck of left femur, initial encounter for closed fracture (2) Hypothyroid Hypothyroidism type: acquired Qualified Code(s): E03.9 - Hypothyroidism, unspecified
--- NOTE | 2018-08-02 15:37 | Orthopedic Progress Note ---
Date of Service August 02, 2018 Assessment & Plan (1) Closed hip fracture: Overall her hip seems to be doing fairly well and she is cooperating well with physical therapy. She seems much less confused today. She can be weightbearing as tolerated. She is going to be on aspirin 81 mg twice a day for 6 weeks. She is orthopedically stable for discharge when medically ready. The Bridget VAC dressing on her hip will come off at 7 days. She will follow-up in our office in 2 to 3 weeks. Our office phone number is [phone]. If you have any questions regarding her care you can call me personally on my cell phone at [phone]. Orthopedic discharge instructions were placed in the d ischarge report. Odin Marie was seen and examined at bedside this morning. Overall she is doing fairly well. She is been participating well with physical therapy and ambulating some in the room. She just got back to her bed from being in a chair. She seems less confused today than she did yesterday. Physical Exam Musculoskeletal: On physical examination of her left hip, the Bridget VAC dressings to suction. Her leg lengths are equal. She has active range of william on of her left ankle. Results & Data Vital Signs (Past 12 Hours) Vital Signs Temp Pulse Resp BP Pulse Ox 08/02/18 07:00 36.4 C L 62 18 149/70 H 98 (1) Closed hip fracture Encounter type: initial encounter Laterality: left Qualified Code(s): S72.002A - Fracture of unspecified part of neck of left femur, initial encounter for closed fracture
[2018-08-02] MEDS: CHOLECALCIFEROL 1,000 UNITS TAB PO SCH (17:02)
[2018-08-02] MEDS: MIRTAZAPINE TAB 15 MG TAB PO SCH (20:40)
[2018-08-02] MEDS: DOCUSATE SODIUM/SENNA 50/8.6MG TAB PO SCH (20:40)
[2018-08-03] MEDS: LEVOTHYROXINE SODIUM 50 MCG TABLET PO SCH (05:31)
[2018-08-03 08:01] LABS: Basophils # (auto) 0.03 K/uL (0-0.2); Basophils % (auto) 0.3 %; Eosinophils # (auto) 0.48 K/uL (0-0.5); Eosinophils % (auto) 5.1 %; Hematocrit (blood only) 24.6 % (37-47); Hemoglobin 8.4 g/dL (12.0-16.0); Immature Granulocytes # (auto) 0.01 K/uL (0.00-0.02); Immature Granulocytes % (auto) 0.1 %; Lymphocytes # (auto) 1.19 K/uL (1.2-3.4); Lymphocytes % (auto) 12.6 %; Mean Corpuscular Hgb Conc 34.1 g/dL (32-36); Mean Corpuscular Volume 79.1 fL (80-100); Mean Platelet Volume 9.5 fL (7.4-10.4); Monocytes # (auto) 1.15 K/uL (0.11-0.59); Monocytes % (auto) 12.2 %; Neutrophils % (auto) 69.7 %; Platelet Count 152 K/uL (130-400); RDW Standard Deviation 42.9 fL (36.4-46.3); Red Blood Count 3.11 M/uL (4.2-5.4); White Blood Count 9.46 K/uL (4.8-10.8)
[2018-08-03 08:36] LABS: BUN Creatinine Ratio 22.5 (10-20); Calcium 8.4 mg/dl (8.5-10.1); Creatinine Clr Calc Pharmacy 25.3 ml/min; Est GFR (African American) 51.9; Est GFR (Non-African American) 44.8; Potassium 4.5 mmol/L (3.5-5.1)
[2018-08-03] MEDS: POTASSIUM CHLORIDE 20 MEQ TABCR PO SCH (09:51)
[2018-08-03] MEDS: CHOLECALCIFEROL 1,000 UNITS TAB PO SCH (09:51)
[2018-08-03] MEDS: DOCUSATE SODIUM 100 MG CAP PO SCH ×2 (09:51→22:08)
[2018-08-03] MEDS: FUROSEMIDE 40 MG TAB PO SCH (09:51)
[2018-08-03] MEDS: ASPIRIN 81 MG ECTAB PO SCH ×2 (09:52→22:08)
[2018-08-03] MEDS: PRESERVISION AREDS PO SCH (09:52)
[2018-08-03] MEDS: AMLODIPINE BESYLATE 5 MG TAB PO SCH (09:53)
[2018-08-03] MEDS: BuPROPion SR 100 MG TABCR PO SCH (09:53)
[2018-08-03] MEDS: SULFA/TRIMETH 400/80MG TAB PO SCH ×2 (09:54→22:08)
[2018-08-03] MEDS: PANTOprazole 40 MG TAB PO SCH ×2 (10:18→22:08)
--- NOTE | 2018-08-03 12:32 | Hospitalist Progress Note ---
Date of Service August 03, 2018 Assessment & Plan (1) Closed hip fracture: - S/p bipolar left hip arthroplasty on 07/31/18, POD#3. - Weight bearing as tolerated. - PT/OT recommending SNF -- plan for placement at [facility] likely on 08/04/18. - DVT ppx: Aspirin 81 mg BID for 6 weeks. - Bridget VAC to be removed in 7 days (08/08/18); will need f/u in the office in 2-3 weeks. (2) Acute anemia: - Hgb trending down overall possibly related to intra op blood loss. - MCV was low at admission -- likely has underlying iron deficiency anemia. - Iron studies are pending; repeat H/H also ordered. - Last colonoscopy was at age 74; no h/o colon cancer or GI bleeding. - FOBT pending collection. - Start ferrous sulfate 325 mg BID; titrate to TID if tolerating. (3) Diastolic CHF due to valvular disease: - Most recent TTE in Dec 2017 showed aortic valve with mildly elevated transvalvular velocity and gradient. - Monitor net I/Os and daily weights. - Continue Lasix 40 mg qAM as prescribed. (4) Status post aortic valve replacement: - Bioprosthetic AVR in 2008; well functioning per last TTE. (5) History of permanent cardiac pacemaker placement: - Follows with cardiology; no indication for interrogation as inpatient. (6) Third degree AV block: - Follows with cardiology; s/p pacemaker implantation. (7) HTN (hypertension): - Continue Amlodipine and Lasix as prescribed. (8) Hypothyroid: - Continue Synthroid as prescribed. - Most recent TSH was 4 in Dec 2017. (9) Venous ulcer: - Now healing -- continue topical wound care. - Started Bactrim on 07/22, will need to complete 28 day course. (10) Depression: - Continue Welbutrin and Remeron as prescribed. (11) CKD (chronic kidney disease) stage 3, GFR 30-59 ml/min: - Renally dose all meds. (12) Vitamin D deficiency: - Started Vit D 1,000 units qAM. - Level was 12 on 07/31/18; repeat level as outpatient. (13) DVT prophylaxis: - Aspirin 81 mg BID. Dispo: Discharge to rehab likely on 08/04/18 pending improvement in H/H. Will need insurance authorization. Supervising Physician Co-Signing Physician Notes PA Supervision Note: I did not personally see or examine the patient today, but I verified all daly points of NORA White's assessment and plan with the following exceptions/additions: None Subjective Pt. is doing well overall today. H/h is decreasing -- pt. appeared to have iron deficiency anemia at admission prior to procedure. She denies h/o GI bleeding; denies current melena, hematochezia. Last colonoscopy was at age 74. Started ferrous sulfate, will need outpatient evaluation. Plan for placement at [facility] likely on 08/04/18 if hemoglobin is stable over next 24 hours. Review of Systems Review of Systems: All systems reviewed & are unremarkable except as noted in HPI & below Constitutional: + fatigue and + weakness; no fever and no chills Respiratory: no cough, no dyspnea, no dyspnea on exertion and no wheezing Cardiovascular: no chest pain, no palpitations and no edema Gastrointestinal: no abdominal pain, no nausea, no vomiting, no constipation, no diarrhea/loose stools, no blood in stools and no melena Genitourinary: no difficulty urinating Musculoskeletal: no back pain and no joint pain Integumentary: no non-healing lesions Allergy / Immunological: no rash Physical Exam Physical Exam: General: Resting comfortably in no apparent distress HEENT: NC/AT; PERRLA with EOMI; [place] conjunctiva, MMM. No erythema of posterior pharynx Neck: Supple and nontender Cardiac: RRR Lungs: CTA bilaterally Abdomen: Bowel normoactive X 4; Nontender to palpation Extremities: Warm. No edema present. Drain in place. Neuro: No focal weakness Skin: No rash Results & Data Vital Signs (Past 12 Hours) Vital Signs Temp Pulse Resp BP Pulse Ox 08/03/18 06:54 37.1 C 68 16 142/69 H 100 Laboratory Results 08/03/18 08/03/18 Range/Units 07:50 07:50 WBC 9.46 (4.8-10.8) K/uL RBC 3.11 L (4.2-5.4) M/uL Hgb 8.4 L (12.0-16.0) g/dL Hct 24.6 L (37-47) % MCV 79.1 L (80-100) fL MCH 27.0 (25-34) pg MCHC 34.1 (32-36) g/dL RDW Std Deviation 42.9 (36.4-46.3) fL RDW Coeff of Kem 15.0 H (11.5-14.5) % Plt Count 152 (130-400) K/uL MPV 9.5 (7.4-10.4) fL Immature Gran % (Auto) 0.1 % Neut % (Auto) 69.7 % Lymph % (Auto) 12.6 % [place] % (Auto) 12.2 % Eos % (Auto) 5.1 % Baso % (Auto) 0.3 % Immature Gran # (Auto) 0.01 (0.00-0.02) K/uL Neut # (Auto) 6.60 H (1.4-6.5) K/uL Lymph # (Auto) 1.19 L (1.2-3.4) K/uL Grant # (Auto) 1.15 H (0.11-0.59) K/uL Eos # (Auto) 0.48 (0-0.5) K/uL Baso # (Auto) 0.03 (0-0.2) K/uL Sodium 131 L (136-145) mmol/L Potassium 4.5 (3.5-5.1) mmol/L Chloride 100 (98-107) mmol/L Carbon Dioxide 23 (21-32) mmol/L Anion Gap 8.0 (3-11) BUN 25 H (7-18) mg/dl Creatinine 1.10 (0.6-1.2) mg/dl Est Cr Clr Drug Dosing 25.3 ml/min Est GFR ( Amer) 51.9 Est GFR (Non-Af Amer) 44.8 BUN/Creatinine Ratio 22.5 H (10-20) Glucose 97 (70-99) mg/dl Calcium 8.4 L (8.5-10.1) mg/dl (1) Closed hip fracture Encounter type: initial encounter Laterality: left Qualified Code(s): S72 .002A - Fracture of unspecified part of neck of left femur, initial encounter for closed fracture (2) Hypothyroid Hypothyroidism type: acquired Qualified Code(s): E03.9 - Hypothyroidism, unspecified
[2018-08-03 12:58] LABS: Hematocrit (blood only) 28.4 % (37-47); Hemoglobin 9.4 g/dL (12.0-16.0)
[2018-08-03 13:49] LABS: Ferritin 89.6 ng/ml (8-388)
[2018-08-03] MEDS: FERROUS SULFATE 325 MG TAB PO SCH (19:03)
[2018-08-03] MEDS: DOCUSATE SODIUM/SENNA 50/8.6MG TAB PO SCH (22:06)
[2018-08-03] MEDS: MIRTAZAPINE TAB 15 MG TAB PO SCH (22:08)
[2018-08-03] MEDS: ACETAMINOPHEN 325 MG TAB PO PRN (22:15)
[2018-08-04] MEDS: LEVOTHYROXINE SODIUM 50 MCG TABLET PO SCH (05:45)
[2018-08-04 07:54] LABS: Basophils # (auto) 0.04 K/uL (0-0.2); Basophils % (auto) 0.5 %; Eosinophils # (auto) 0.51 K/uL (0-0.5); Hematocrit (blood only) 24.4 % (37-47); Hemoglobin 8.2 g/dL (12.0-16.0); Immature Granulocytes # (auto) 0.01 K/uL (0.00-0.02); Immature Granulocytes % (auto) 0.1 %; Lymphocytes # (auto) 1.13 K/uL (1.2-3.4); Lymphocytes % (auto) 13.2 %; Mean Corpuscular Hgb Conc 33.6 g/dL (32-36); Mean Corpuscular Volume 79.2 fL (80-100); Mean Platelet Volume 9.5 fL (7.4-10.4); Monocytes # (auto) 1.14 K/uL (0.11-0.59); Monocytes % (auto) 13.4 %; Neutrophils % (auto) 66.8 %; Platelet Count 176 K/uL (130-400); RDW Coefficient of Variation 15.1 % (11.5-14.5); RDW Standard Deviation 43.7 fL (36.4-46.3); Red Blood Count 3.08 M/uL (4.2-5.4); White Blood Count 8.53 K/uL (4.8-10.8)
[2018-08-04 08:18] LABS: BUN Creatinine Ratio 22.5 (10-20); Calcium 8.4 mg/dl (8.5-10.1); Creatinine Clr Calc Pharmacy 24.5 ml/min; Est GFR (African American) 48.7; Potassium 4.4 mmol/L (3.5-5.1)
[2018-08-04] MEDS: SULFA/TRIMETH 400/80MG TAB PO SCH (09:20)
[2018-08-04] MEDS: PANTOprazole 40 MG TAB PO SCH (09:20)
[2018-08-04] MEDS: ASPIRIN 81 MG ECTAB PO SCH (09:20)
[2018-08-04] MEDS: FERROUS SULFATE 325 MG TAB PO SCH (09:20)
[2018-08-04] MEDS: DOCUSATE SODIUM 100 MG CAP PO SCH (09:20)
[2018-08-04] MEDS: FUROSEMIDE 40 MG TAB PO SCH (09:20)
[2018-08-04] MEDS: CHOLECALCIFEROL 1,000 UNITS TAB PO SCH (09:20)
[2018-08-04] MEDS: POTASSIUM CHLORIDE 20 MEQ TABCR PO SCH (09:20)
[2018-08-04] MEDS: PRESERVISION AREDS PO SCH (09:20)
[2018-08-04] MEDS: AMLODIPINE BESYLATE 5 MG TAB PO SCH (09:21)
[2018-08-04] MEDS: BuPROPion SR 100 MG TABCR PO SCH (09:21)
[2018-08-04] MEDS ORDERED: IRON SUCROSE 100 MG in 0.9 % SODIUM CHLORIDE 100 ML IV ONE (10:45)
--- NOTE | 2018-08-04 11:16 | Discharge Summary ---
Date of Service August 04, 2018 Admission HPI Per Admitting Provider Cynthia is a 87 year old female with a PMH of CHF, Complete heart block w/ pacer, Aortic valve replacement, Depression, HTN, Hypothyroidism, CKD and Chronic R venous ulcer that presents to [facility] after having a fall at [facility] This evening she was in her room with her walker. She was at her bedside table about to grab a book when she felt very unsteady grabbed the light pole next to her and fell to the ground on her left hip. The staff then came to her room and called EMS. Patient notes that she her eyesight (macular degeneration) and peripheral neuropathy have been worsening over the past several months. In the ED patient had a XRAY which showed a left hip fx. She is not any blood thinners except aspirin. She is being given abx for a R lower chronic venous ulcer that currently appears well healed. Family is requesting for a form raiser to see them prior to pt going for surgery. She denies any syncope, dizziness, palpitations, chest pain, fevers, chills, shortness of breath, leg swelling, dysuria, headaches Principal Diagnosis Hip fracture Discharge Exam Constitutional WD/WN, vitals as above Respiratory normal respiratory effort, lungs clear to auscultation Cardiovascular Rate/Rhythm: regular rate and regular rhythm Heart Sounds: + murmur Gastrointestinal (Abdomen) Inspection/Auscultation: abdomen normal to inspection and normal bowel sounds; abdomen not distended Musculoskeletal Extremities: extremities normal to inspection wound vac in place Skin flaking lower extremities, left hip ecchymotic Neurologic moves all extremities and awake Psychiatric A+Ox3, euthymic affect Discharge Data Allergies Allergy/AdvReac Type Severity Reaction Status Date / Time doxycycline Allergy Unknown RASH Verified 07/30/18 22:34 tetracycline Allergy Unknown Unknown Verified 07/30/18 22:34 cefdinir AdvReac Mild Gastrointestinal Verified 07/30/18 22:34 Upset Consultations 07/30/18 22:54 ED Decision to Admit Stat 07/31/18 01:14 Consult Cardiology Routine Consult Case Management - Discharge Planning Routine Consult Orthopedic Surgery Routine Procedures Performed Operation Date: 07/31/18 13:00 Actual Procedures p Bipolar Hip Arthroplasty Anterior Approach(Left) - Isaías Bernard, Ordered Studies 07/31/18 FL fluoroscopy <1hr Routine FL hip LT 1V Routine Hospital Course (1) Closed hip fracture: - S/p bipolar left hip arthroplasty on 07/31/18, POD#3. - Weight bearing as tolerated. - PT/OT recommending SNF -- plan for placement at [facility] - DVT ppx: Aspirin 81 mg BID for 6 weeks. - Bridget VAC to be removed in 7 days (08/08/18); will need f/u in the office in 2-3 weeks. (2) Acute anemia: - Hgb trending down overall possibly related to intra op blood loss and microcytic anemia - MCV was low at admission -- likely has underlying iron deficiency anemia. -Now that on aspirin twice daily for DVT prophylaxis, will add on Protonix 40 mg twice daily for gastric protection - Iron studies with low iron and transferrin sat 7% - Last colonoscopy was at age 74; no h/o colon cancer or GI bleeding. -continue ferrous sulfate 325 mg BID; will give dose of IV iron x1 on the day of discharge - will have [facility] repeat H&H in 2 days (3) Diastolic CHF due to valvular disease: - Most recent TTE in Dec 2017 showed aortic valve with mildly elevated transvalvular velocity and gradient. - Monitor net I/Os and daily weights. - Continue Lasix 40 mg qAM as prescribed. (4) Status post aortic valve replacement: - Bioprosthetic AVR in 2008; well functioning per last TTE. (5) History of permanent cardiac pacemaker placement: - Follows with cardiology; no indication for interrogation as inpatient. (6) Third degree AV block: - Follows with cardiology; s/p pacemaker implantation. (7) HTN (hypertension): - Continue Amlodipine and Lasix as prescribed. (8) Hypothyroid: - Continue Synthroid as prescribed. - Most recent TSH was 4 in Dec 2017. (9) Venous ulcer: - Now healing -- continue topical wound care. Growing MRSA on wound culture - Started Bactrim on 07/22, will need to complete 28 day course. (10) Depression: - Continue Wellbutrin and Remeron as prescribed. (11) CKD (chronic kidney disease) stage 3, GFR 30-59 ml/min: - Renally dose all meds. (12) Vitamin D deficiency: - Started Vit D 1,000 units qAM. - Level was 12 on 07/31/18; repeat level as outpatient. (13) DVT prophylaxis: - Aspirin 81 mg BID. Disposition-stable for discharge to rehab facility Total Time Total Time Spent Total Time Spent (In Minutes): greater than 30 minutes Discharge Plan Discharge Items Patient Disposition: Transfer Custodial Fac Reason For Visit: HIP FX Discharge Diagnosis: Hip fracture Condition: Fair Discharge Goals: Decrease discomfort and Therapeutic intervention Activity: As commented below Activity Comment: WBAT Non-emergency contact: Primary Care Provider Call non-emergency contact if: you have any medication questions Follow-up/Referrals: Galdino Ibarra MD [Primary Care Provider] - Diet: Heart Healthy Addtl Provider Instructions: Repeat H&H in 2 days Please have patient follow up with cardiology within the next couple of weeks Complete 28 days total of Bactrim for venous stasis ulcer - antibiotics started 07/22 Your vitamin D level was low. Please take 50,000 units of cholecalciferol once weekly for 8 weeks then 2,000 IUs daily after that ORTHOPEDIC INSTRUCTIONS Hip Hemiarthroplasty Activity and Therapy Recommendations: 1. You were shown a series of exercises in the hospital. Do these exercises three times each day if you are able. 2. Get up and walk several times each day if you are capable. Make sure you have assistance is needed. For the first four weeks, try not to stand or walk for more than one hour at a time. If you do stand or walk for more than one hour, you will not hurt anything, but your leg will likely swell. 3. As you feel comfortable, you may change from the walker or crutches to a cane and then to independent walking if you are able. Please be safe. Medications: 1. Narcotic You will likely be sent from the hospital with the narcotic pain medication that worked best throughout your stay. 2. Aspirin You will be required to take Aspirin 81mg twice a day for 6 weeks after surgery to prevent blood clots. 3. Other medications may be given for specific circumstances. If you have any questions, please call the office at [phone]. 4. Resume previous home medications unless otherwise instructed TEDs/Elastic Stockings: The white elastic stockings help limit swelling and prevent blood clots from forming in your legs. The more you wear them, the more they work. Wear them for six weeks. Dressing Care: You will likely have a purple VAC dressing after surgery. This dressing will keep the incision dry and promote early healing. After about 8 days the batteries will wear out and the VAC will lose suction. Simply remove the dressing at that time and throw everything away, including the small suction machine. Then, you may leave the natalie open to air or cover them with a dry dressing so they do not rub on your pants. The natalie will be removed at your 2 week follow-up appointment. Showering: You may shower immediately with the purple VAC dressing. Let the shower spray hit your opposite side and slowly pat the plastic dry. Do not soak the dressing. After the dressing is removed you may shower normally with the natalie exposed. Let soapy water run over the natalie and pat them dry. Things To Watch For: 1. Drainage from the incision site that occurs more than one week after your surgery. 2. Increased redness at the incision site. 3. Fever above 102 degrees Fahrenheit. 4. Unusual chest pain or shortness of breath. 5. Call [facility] at with any of the above problems Follow-Up Visit: Follow-up with Dr. Bernard 2-3 weeks after your day of surgery. Please call to make an appointment or be sure your rehab facility has made one. If you have any questions call Prescriptions: New ferrous sulfate 325 mg (65 mg iron) Tablet,Delayed Release (Dr/Ec) 325 mg PO BIDM Qty: 30 RF: 0 aspirin [Ecotrin Low Strength] 81 mg Tablet,Delayed Release (Dr/Ec) 81 mg PO BID Qty: 90 RF: 0 pantoprazole 40 mg Tablet,Delayed Release (Dr/Ec) 40 mg PO BID Qty: 60 RF: 0 cholecalciferol (vitamin D3) 50,000 unit capsule 50,000 units PO WK Qty: 8 RF: 0 Continued potassium chloride [Klor-Con M20] 20 mEq tablet,ER particles/crystals 20 meq PO DAILY RF: 0 Refresh Tears 0.5 % drops 1 drops OP BID PRN (Reason: dry eye(s)) RF: 0 sennosides [senna] 8.6 mg Tablet 8.6 mg PO .[id number] PRN (Reason: Constipation) RF: 0 acetaminophen [Tylenol] 325 mg Tablet 650 mg PO Q4 MDD 3 GRAMS/24 HOURS PRN (Reason: Fever Or Pain) RF: 0 bupropion HCl [Wellbutrin SR] 100 mg Tablet Sustained-Release 12 Hr 200 mg PO QAM RF: 0 levothyroxine 50 mcg Tablet 50 mcg PO DAILY RF: 0 docusate sodium [Colace] 100 mg Capsule 100 mg PO BID RF: 0 mirtazapine 15 mg Tablet 15 mg PO HS RF: 0 PreserVision AREDS [id number] [id number] Tablet 2 tab PO QAM RF: 0 furosemide 40 mg Tablet 40 mg PO QAM Qty: 30 RF: 0 amlodipine [Norvasc] 5 mg Tablet 5 mg PO QAM Qty: 30 RF: 0 Aquaphor Ointment 1 applic TOPICAL BID PRN (Reason: Dry Skin) RF: 0 Glucerna Liquid 1 ea PO BID RF: 0 Discontinued aspirin 81 mg Tablet,Delayed Release (Dr/Ec) 81 mg PO HS RF: 0 Stand-Alone Forms: [employer] [address] Power/Other Patient Handouts: DVT Prevent Discharge Orders: Discharge Order (Routine); Ordered 08/04/18 Ordered By: Mary Deleon Skilled Items Patient informed of condition?: Yes DNR: Yes Discharge Level of Care: Skilled Communicable Disease: No Discharge Prognosis: Stable Admission Data Admit Date/Time: 07/31/18 00:31 Attending Provider: Mable Bryan Admit Provider: Romaine Land Primary Care Provider: Galdino Ibarra Other Providers: Romaine Land ; Boy Vargas Jr ; Isaías Bernard Service: Medical Other Interventions: Discharge Summary Assessment (RN) Last Done: 08/04/18 14:38 DC Date/Time DO NOT enter until pt leaves facility: 08/04/18 17:00 Supervising Physician Co-Signing Physician Notes SVETLANA supervision Note: I personally saw and examined the patient. I verified all daly points and agree with SVETLANA Deleon with the following exceptions and/or additions: Urinalysis was checked just prior to discharge and was completely normal. Dysuria may be from another cause, perhaps vaginal candidal infection? It should be followed up at nursing facility Patient denied any other concerns at the time I saw her prior to discharge Vitals reviewed Patient then Regular rate and rhythm, no murmurs gallops rubs Lungs clear to auscultation bilaterally Abdomen positive bowel sounds soft nontender no masses or hepatosplenomegaly Extremities with left hip with wound VAC in place, mild edema and ecchymosis around the surgical site 87-year-old female here with fall with hip fracture now status post repair -Needs rehab placement Continue aspirin twice daily for DVT prophylaxis along with PPI in case of occult GI bleed given anemia -Follow CBC in the near future Of note, the patient should remain on Bactrim double strength 1 tab p.o. twice daily until approximately August 20. This did not make the discharge medication list prior to the patient leaving the facility
[2018-08-04 16:42] LABS: Appearance Urine Clear (Clear); Bilirubin Urine Negative (Negative); Blood Urine Negative (Negative); Color Urine Yellow; Glucose Urine UA Negative (Negative); Ketones Urine Negative (Negative); Leukocyte Esterase Urine Negative (Negative); Nitrite Urine Negative (Negative); Protein Urine Negative (Negative); Specific Gravity Urine 1.016 (1.000-1.030); Urobilinogen Urine Negative (Negative); pH Urine 5.5 (4.5-7.5)
== END 2018-08-04 17:00 | DRG 469 ==
LOC: ED 22:00 → 3N 07-31 00:31 → SUATTDRO 07-31 00:31 → 3N 07-31 00:53